=== PATIENT | male | born 1960 | race Caucasian/White ===

== ENCOUNTER 2017-06-13 07:49 | Inpatient (IN) | payer BC ==
[2017-06-13] MEDS ORDERED: ASPIRIN 81 MG PO STA (07:58)
[2017-06-13] MEDS ORDERED: NITROGLYCERIN SL TABS 0.4 MG TAB SUBLINGUAL STA (07:58)
[2017-06-13] MEDS ORDERED: ONDANSETRON 4 MG/2 ML VIAL IVP STA (08:02)
[2017-06-13] MEDS ORDERED: ATORVASTATIN 80 MG TAB PO STA (08:02)
[2017-06-13] MEDS ORDERED: HYDROmorphone 0.5 MG/0.5 ML SYRINGE IVP STA (08:03)
[2017-06-13] MEDS ORDERED: NITROGLYCERIN-D5W PMX 50 MG in DEXTROSE/WATER 1 250ML.BAG IV ONE (08:03)
[2017-06-13 08:10] LABS: Basophils # (A) 0.1 k/uL (0-0.2); Basophils % (A) 1 %; Eosinophils # (A) 0.2 k/uL (0-0.7); Eosinophils % (A) 2 %; HCT 48.5 % (39.0-53.0); HGB 16.2 gm/dL (13.0-17.5); Lymphocytes % (A) 45 %; MCH 32.3 pg (25.0-35.0); MCHC 33.3 g/dL (31.0-37.0); MCV 96.9 fL (80.0-100.0); Mean Platelet Volume 7.1; Monocytes % (A) 9 %; Neutrophils # (A) 4.3 k/uL (1.3-7.7); Neutrophils % (A) 40 %; Platelet Count 267 k/uL (150-450); RBC 5.01 m/uL (4.30-5.90); WBC 10.7 k/uL (3.8-10.6)
--- NOTE | 2017-06-13 08:11 | ED ---
Chest Pain HPI - General Chief Complaint: Chest Pain Stated Complaint: chest pain Time Seen by Provider: 06/13/17 07:55 Source: patient, RN notes reviewed Mode of arrival: wheelchair Limitations: no limitations - History of Present Illness Initial Comments: This is a 56-year-old male with history of smoking which she quit 3 years ago and alcohol consumption which he states he has not had a drink in about a week also history of hypertension on no medications who states he had the onset about 740 morning just prior to arrival of severe retrosternal chest pressure. Is burning in nature it feels like heartburn 10/10 severity he states his mid chest nonradiating. He denies any nausea vomiting sweats or other symptoms with it no shortness of breath he is however very anxious. He does state he is been worked up for chest pain before including stress tests which currently been negative. MD Complaint: chest pain - Related Data Allergies Allergy/AdvReac Type Severity Reaction Status Date / Time No Known Allergies Allergy Verified 06/13/17 07:51 Review of Systems ROS Statement: Those systems with pertinent positive or pertinent negative responses have been documented in the HPI. ROS Other: All systems not noted in ROS Statement are negative. EKG Findings - EKG Results: EKG: interpreted by ERMD, sinus rhythm (Sinus rhythm rate of 68 NJ interval 192 QRS 80 QT since QTC of 398/[address] elevation in leads 23 aVF with reciprocal depressions in leads aVL. This is changed from an EKG dated 03/21/16 which showed possible evidence of repolarization but was otherwise unremarkable. ) Past Medical History Past Medical History: GERD/Reflux Additional Past Medical History / Comment(s): Recent infuenza History of Any Multi-Drug Resistant Organisms: None Reported Past Surgical History: No Surgical Hx Reported Past Psychological History: No Psychological Hx Reported Smoking Status: Former smoker Past Alcohol Use History: None Reported Past Drug Use History: None Reported - Past Family History Father Family Medical History: Coronary Artery Disease (CAD) Additional Family Medical History / Comment(s): Father had his first AK in his 40's. He had CABG twice. He of a AK at the age of 67yrs. Mother Family Medical History: Coronary Artery Disease (CAD) Additional Family Medical History / Comment(s): Mother had CABG. She of a AK at the age of 67yrs. General Exam - General Exam Comments Initial Comments: This is a well up well-nourished awake alert anxious appearing male Limitations: no limitations General appearance: alert, anxious, in distress Head exam: Present: atraumatic, normocephalic, normal inspection Eye exam: Present: normal appearance, PERRL, EOMI. Absent: scleral icterus, conjunctival injection, periorbital swelling ENT exam: Present: normal exam, mucous membranes moist Neck exam: Present: normal inspection. Absent: tenderness, meningismus, lymphadenopathy Respiratory exam: Present: normal lung sounds bilaterally. Absent: respiratory distress, wheezes, rales, rhonchi, stridor Cardiovascular Exam: Present: normal rhythm, bradycardia, normal heart sounds. Absent: systolic murmur, diastolic murmur, rubs, gallop, clicks GI/Abdominal exam: Present: soft, normal bowel sounds. Absent: distended, tenderness, guarding, rebound, rigid Extremities exam: Present: normal inspection, full ROM, normal capillary refill. Absent: tenderness, pedal edema, joint swelling, calf tenderness Back exam: Present: normal inspection Neurological exam: Present: alert, oriented X3, CN II-XII intact Psychiatric exam: Present: normal affect, normal mood Skin exam: Present: warm, dry, intact, normal color. Absent: rash Course Vital Signs 06/13/17 06/13/17 06/13/17 07:50 07:58 08:04 Temperature 98.1 F Pulse Rate 55 L 58 L 66 Respiratory 20 18 20 Rate Blood Pressure 142/80 142/84 152/93 O2 Sat by Pulse 100 100 100 Oximetry 06/13/17 06/13/17 06/13/17 08:08 08:13 08:17 Temperature Pulse Rate 58 L 63 57 L Respiratory 18 18 18 Rate Blood Pressure 147/84 135/88 147/82 O2 Sat by Pulse 100 100 99 Oximetry 06/13/17 08:23 Temperature Pulse Rate 64 Respiratory 18 Rate Blood Pressure 153/86 O2 Sat by Pulse 100 Oximetry - Reevaluation(s) Reevaluation #1: 06/13/17 08:09 A STEMI alert was called immediately I did discuss the case with both Dr. Cade at 8:[address] ASPEN Larson at 804 the Test Desk Trouble Locator has been called in. Patient states his pain was down to a 9.5/10 after the initial treatment. 06/13/17 08:13 Reevaluation #2: 06/13/17 08:10 I did discuss the findings with Dr. Gagnon at 8:10 AM patient will be admitted to his service after the Test Desk Trouble Locator. Reevaluation #3: 06/13/17 08:14 Patient does seem more comfortable he states down to a 9.0/10 at this time. He did have some nausea he was given some IV Zofran. Reevaluation #4: 06/13/17 08:20 Patient appears be resting comfortably his pain is down to 8/10 I did discuss the findings with the patient's daughter who is at bedside I did explain the current situation and the catheterization process briefly. Reevaluation #5: 06/13/17 08:28 Patient is experiencing increased pain in the IV nitroglycerin will be increased to 10 g. A bolus of 5000 units of heparin will be ordered. Dr. Cade and Dr. Larson are both in the emergency department Chest Pain MDM - MDM The patient's x-ray was reviewed no acute findings. Patient was taken to the Test Desk Trouble Locator. He is feeling somewhat improved. I did again discuss the findings with him and his daughter was present. Critical Care Time Critical Care Time: Yes Critical Care Time: 32 minutes of critical care time which includes the initial history physical labs x-rays and evaluation. Multiple reevaluation of the patient for response to therapy. Discussion with multiple physicians. Review of old charting was available. Documentation of the above. Disposition Clinical Impression: ST elevation myocardial infarction (STEMI), Chest pain Disposition: ADMITTED IP TO THIS HOSP Condition: Critical Referrals: None,Stated [Primary Care Provider] - 1-2 days
--- NOTE | 2017-06-13 08:19 | XR ---
EXAMINATION TYPE: XR chest 1V portable DATE OF EXAM: 06/13/2017 HISTORY: Chest Pain. REFERENCE: Previous study dated 03/20/2016. FINDINGS: The lungs are clear. Pleural space are clear. Heart size is upper limits of normal. IMPRESSION: NO ACUTE INTRATHORACIC ABNORMALITY.
[2017-06-13 08:20] LABS: ALT 57 U/L (21-72); AST 30 U/L (17-59); Albumin 4.1 g/dL (3.5-5.0); Alkaline Phosphatase 63 U/L (38-126); Amylase 33 U/L (30-110); Anion Gap 12 mmol/L; Blood Urea Nitrogen 15 mg/dL (9-20); Calcium 9.6 mg/dL (8.4-10.2); Carbon Dioxide 23 mmol/L (22-30); Chloride 107 mmol/L (98-107); Glucose 125 mg/dL (74-99); Lipase 235 U/L (23-300); Magnesium 1.9 mg/dL (1.6-2.3); Potassium 3.2 mmol/L (3.5-5.1); Sodium 142 mmol/L (137-145)
[2017-06-13 08:22] LABS: Lymphocytes # (A) 4.8 k/uL (1.0-4.8)
[2017-06-13] MEDS ORDERED: HEPARIN SODIUM,PORCINE 5,000 UNIT/ML 1 ML VIAL IV STA (08:29)
[2017-06-13 08:30] LABS: Prothrombin Time 9.7 sec (9.0-12.0)
--- NOTE | 2017-06-13 08:32 | P.CRDCN ---
History of Present Illness Consult date: 06/13/17 History of present illness: This is a 56-year-old gentleman with history of hypertension and previous history of smoking who started having severe chest pain about 7:45 AM this morning. This is a precordial in nature and very severe, associated with mild nausea. His EKG showed ST elevation in inferior leads and depression in the anterior leads. Findings are consistent with inferoposterior myocardial infarction. Patient apparently had a stress test about a year ago that was negative for ischemia. He used to smoke in the past but quit several years ago. He is a social drinker. Patient is being taken to Cardiac catheterization laboratory for cardiac cath and possible intervention. Prognosis guarded Review of Systems Not obtained Past Medical History Past Medical History: GERD/Reflux Additional Past Medical History / Comment(s): Recent infuenza History of Any Multi-Drug Resistant Organisms: None Reported Past Surgical History: No Surgical Hx Reported Past Psychological History: No Psychological Hx Reported Smoking Status: Former smoker Past Alcohol Use History: None Reported Past Drug Use History: None Reported - Past Family History Father Family Medical History: Coronary Artery Disease (CAD) Additional Family Medical History / Comment(s): Father had his first MN in his 40's. He had CABG twice. He of a MN at the age of 67yrs. Mother Family Medical History: Coronary Artery Disease (CAD) Additional Family Medical History / Comment(s): Mother had CABG. She of a MN at the age of 67yrs. Medications and Allergies Allergies Allergy/AdvReac Type Severity Reaction Status Date / Time No Known Allergies Allergy Verified 06/13/17 07:51 Physical Exam Vitals: Vital Signs Temp Pulse Resp BP Pulse Ox 06/13/17 08:23 64 18 153/86 100 06/13/17 08:17 57 L 18 147/82 99 06/13/17 08:13 63 18 135/88 100 06/13/17 08:08 58 L 18 147/84 100 06/13/17 08:04 66 20 152/93 100 06/13/17 07:58 58 L 18 142/84 100 06/13/17 07:50 98.1 F 55 L 20 142/80 100 Intake and Output 06/12/17 06/13/17 06/13/17 22:59 06:59 14:59 Other: Weight 88.451 kg Patient Weight 06/14/17 06:59 Weight 88.451 kg GENERAL EXAM: Patient is alert and oriented and doesn't appear to be in any acute distress HEENT: Normocephalic. Normal reaction of pupils, equal size, normal range of extraocular motion. No erythema or exudates in the throat. NECK: No masses, no nuchal rigidity. CHEST: No chest wall deformity. LUNGS: Equal air entry with no crackles or wheeze. HEART: S1 and S2 normal with no audible mumurs or gallops. Regular rhythm, femorals equal on both sides.. ABDOMEN: No hepatosplenomegaly, normal bowel sounds, no guarding or rigidity. SKIN: No rashes CENTRAL NERVOUS SYSTEM: No focal deficits. EXTREMITIES: No cyanosis, clubbing or edema. Results 06/13/17 07:45 06/13/17 07:45 Cardiac Enzymes 06/13/17 Range/Units 07:45 AST 30 (17-59) U/L CBC 06/13/17 Range/Units 07:45 WBC 10.7 H (3.8-10.6) k/uL RBC 5.01 (4.30-5.90) m/uL Hgb 16.2 (13.0-17.5) gm/dL Hct 48.5 (39.0-53.0) % Plt Count 267 (150-450) k/uL Comprehensive Metabolic Panel 06/13/17 Range/Units 07:45 Sodium 142 (137-145) mmol/L Potassium 3.2 L (3.5-5.1) mmol/L Chloride 107 (98-107) mmol/L Carbon Dioxide 23 (22-30) mmol/L BUN 15 (9-20) mg/dL Creatinine 0.83 (0.66-1.25) mg/dL Glucose 125 H (74-99) mg/dL Calcium 9.6 (8.4-10.2) mg/dL AST 30 (17-59) U/L ALT 57 (21-72) U/L Alkaline Phosphatase 63 (38-126) U/L Total Protein 7.0 (6.3-8.2) g/dL Albumin 4.1 (3.5-5.0) g/dL Current Medications Generic Name Dose Route Start Last Admin Trade Name Freq PRN Reason Stop Dose Admin Nitroglycerin/Dextrose 50 mg/ 250 mls @ 1.5 mls/hr 06/13/17 08:03 06/13/17 08 :05 IV Solution IV 06/14/17 08:02 5 mcg/min .Q24H ONE 1.5 mls/hr Protocol Administration 5 MCG/MIN Intake and Output 06/12/17 06/13/17 06/13/17 22:59 06:59 14:59 Other: Weight 88.451 kg Patient Weight 06/14/17 06:59 Weight 88.451 kg 06/13/17 07:45 06/13/17 07:45 Assessment and Plan (1) Acute inferoposterior myocardial infarction Current Visit: Yes Status: Acute Code(s): I21.19 - STEMI INVOLVING OTH CORONARY ARTERY OF INFERIOR WALL SNOMED Code(s): 94428434 Plan: Patient is being taken to medical lab tech instructor for catheterization and intervention by Dr. ASPEN Larson. Prognosis is guarded
[2017-06-13 08:34] LABS: Partial Thromboplastin Time 19.9 sec (22.0-30.0)
[2017-06-13] MEDS ORDERED: LIDOCAINE 2% INJ 20 MG/ML (20 ML MDV) ONE (08:44)
[2017-06-13] MEDS ORDERED: HYDROmorphone 2 MG/ML 1 ML SYRINGE ONE (08:45)
[2017-06-13] MEDS ORDERED: MIDAZOLAM 2 MG/2 ML VIAL ONE (08:45)
[2017-06-13 08:46] LABS: Creatine Kinase MB 0.3 ng/mL (0.0-2.4)
[2017-06-13] MEDS ORDERED: LIDOCAINE 2% INJ 20 MG/ML SQ ONE (08:46)
[2017-06-13 08:47] LABS: Troponin I 0.041 ng/mL (0.000-0.034)
[2017-06-13] MEDS ORDERED: POTASSIUM CHLORIDE 10 MEQ in SODIUM CHLORIDE 0.9% 100 ML IV STA (08:47)
[2017-06-13] MEDS ORDERED: POTASSIUM CHLORIDE ER 20 MEQ TAB.ER PO STA ×2 (08:47→10:09)
[2017-06-13] MEDS: HYDROmorphone 2 MG/ML 1 ML SYRINGE IV ONE ×3 (08:51→09:17)
[2017-06-13] MEDS ORDERED: MIDAZOLAM 2 MG/2 ML VIAL IV ONE (08:51)
[2017-06-13] MEDS ORDERED: SODIUM CHLORIDE 0.9% 1,000 ML IV ONE (08:55)
[2017-06-13] MEDS ORDERED: BIVALIRUDIN BOLUS 250 MG/50 ML IV ONE (09:00)
[2017-06-13] MEDS ORDERED: BIVALIRUDIN 250 MG in SODIUM CHLORIDE 0.9% 50 ML IV ONE (09:01)
[2017-06-13] MEDS ORDERED: POTASSIUM CHLORIDE 20 MEQ/100 ML BAG IVPB ONE ×2 (09:18→10:13)
[2017-06-13] MEDS ORDERED: NITROGLYCERIN 1000MCG/10ML SYRINGE INTRACORON ONE (09:43)
[2017-06-13] MEDS ORDERED: TICAGRELOR 90 MG TAB ONE (10:02)
[2017-06-13] MEDS ORDERED: IOHEXOL 350 MG/ML 125ML BOTTLE INJ ONE (10:03)
[2017-06-13] MEDS ORDERED: TICAGRELOR 90 MG TAB PO ONE (10:07)
[2017-06-13] MEDS ORDERED: amLODIPine 5 MG TAB ONE (10:08)
[2017-06-13] MEDS ORDERED: amLODIPine 5 MG TAB PO ONE (10:13)
[2017-06-13] MEDS ORDERED: MAG HYDROX/AL HYDROX/SIMETH 30 ML CUP PO PRN (10:15)
[2017-06-13] MEDS ORDERED: ATROPINE SULFATE 0.1 MG/ML 10ML SYRINGE IV PRN (10:15)
[2017-06-13] MEDS ORDERED: ZOLPIDEM 5 MG TAB PO PRN (10:15)
[2017-06-13] MEDS ORDERED: NITROGLYCERIN SL TABS 0.4 MG TAB SUBLINGUAL PRN (10:15)
[2017-06-13] MEDS ORDERED: RX INFO: IV CONTRAST WAS GIVEN 1 EACH MISC MISCELLANE PRN (10:15)
[2017-06-13 10:50] LABS: Glucose,Whole Blood 123 mg/dL (75-99)
[2017-06-13] MEDS ORDERED: MAGNESIUM SULFATE-D5W PMX 1 GM in DEXTROSE/WATER 1 100ML.BAG IVPB ONE (11:00)
[2017-06-13] MEDS: SODIUM CHLORIDE 0.9% 1,000 ML IV SCH (11:10)
[2017-06-13 11:31] VITALS: BMI 27.9
[2017-06-13] MEDS: METOPROLOL TARTRATE 25 MG TAB PO SCH ×2 (14:59→20:19)
[2017-06-13] MEDS ORDERED: LISINOPRIL 10 MG TAB PO STA (15:15)
[2017-06-13] MEDS: HYDROmorphone 0.5 MG/0.5 ML SYRINGE IVP PRN ×2 (15:27→20:34)
--- NOTE | 2017-06-13 15:55 | CC ---
CARDIAC CATHETERIZATION REPORT DATE OF SERVICE: 06/13/2016 PROCEDURES: 1. Left heart catheterization and coronary angiography. 2. PTCA and stenting of distal RCA, PLV branch of RCA with drug-eluting stents in the setting of acute inferior ST-elevation OK with reperfusion accomplished in 79 minutes. PERFORMED BY: Dr. Sheryl Larson. Moderate conscious sedation time was 1 hours 18 minutes. Patient was sedated with a combination of Versed and Benadryl. His oxygen saturation and vital signs were monitored very closely. CLINICAL INFORMATION: Mr. Zaire Mckeon is a 56-year-old gentleman without significant past medical history. He takes some omeprazole type medications. He apparently had a stress echo that was negative in March 2016. He came into the hospital with chest pain that started at about 7:40 am, severe discomfort with inferior ST elevation. Patient presented to the emergency room, was seen by Dr. Cade, advised cardiac cath and PCI that was performed expeditiously. PROCEDURE NOTE: Under local anesthesia and strict aseptic precautions, a 6-[place]ib[place] introducer placed in the right femoral artery. Using a standard left Jj catheter, I performed selective coronary angiography of the left system. I then used a right guide catheter but then switched over for intervention procedure to a [facility] guide catheter. Using this [facility] guide catheter, I performed the intervention. Coronary angiography was performed. LV pressures were also checked, but LV-gram was not performed. Following the procedure, an Angio-Seal device was used to secure hemostasis, but patient continued to have some oozing and therefore a FemoStop at 40 mmHg was applied and he was sent to the ICU in a stable condition with total resolution of chest pain and near-complete resolution of ST elevation in the inferior leads with remarkably good NYA-3 flow in the right coronary artery. CARDIAC CATHETERIZATION FINDINGS: LEFT MAIN CORONARY ARTERY: This is a short patent vessel that has mild diffuse disease and bifurcates into LAD and circumflex. LEFT ANTERIOR DESCENDING CORONARY ARTERY: This vessel has diffuse disease in the mid segment, has mild irregularities throughout. Gives off a septal and diagonal branch. The diagonal branch also seems to have about a 60% to 70% narrowing. Mid LAD has another 70% narrowing in the entire segment with calcification. Distally also there are multiple areas of 30% to 50% narrowing and the vessel curves over the apex to supply the inferoapical portion of left ventricle. There are 2 good-sized diagonal branches and the first diagonal branch has about a 50% stenosis in the proximal portion, but second diagonal branch is free of significant disease. There are 2 septals which are free of significant disease. LEFT POSTERIOR CIRCUMFLEX CORONARY ARTERY: Technically this is a nondominant vessel, gives off a single obtuse marginal that runs laterally, has about a 40% proximal lesion. Then the vessel continues in the AV groove, has diffuse disease and subtotal occlusions are noted and very limited flow is noted in this vessel that comes out to supply the PLV branch. The groove branch has also diffuse disease. The circumflex after the obtuse marginal, therefore, has diffuse disease with subtotal lesion, but the amount of myocardium supplied by it is small. This is a nondominant vessel. First obtuse marginal has a 40% proximal lesion. RIGHT CORONARY ARTERY: Technically a very dominant vessel. At the junction of the proximal and middle one-third there is eccentric 70% stenosis and with calcification and there is extreme tortuosity. After the tortuosity distally, the vessel is totally occluded with very limited sluggish flow and late opacification of the branches. The distal RCA, which is a dominant vessel, is therefore totally occluded after an acute marginal branch before bifurcation and in the proximal one-third, there is an eccentric 70% stenosis. This is a very dominant vessel. Left ventricular end-diastolic pressure was 24 mmHg without any gradient across the aortic valve. FINAL IMPRESSION: This patient has a total occlusion of distal RCA, which is the culprit lesion for his acute inferior myocardial infarction. The left system also has diffuse disease, particularly the LAD has diffuse disease noted in the middle one-third after the 2 diagonal branches. PCI PROCEDURE DETAILS: I used initially a right Jj type guide catheter, but switched over to a KRH catheter. The patient received 180 mg of Brilinta. He also received Angiomax bolus and infusion as per protocol. I used a KRH guide catheter to cannulate the right coronary artery. I used a BMW wire, with this wire, I was able to cross the total occlusion and wire was kept in a small secondary branch coming off from the PLV. I dilated the distal RCA with a 2.0 balloon initially, then I used a 2.5 balloon. There was significant improvement noted. I tried to advance the wire into the PLV branch, but I was not successful. After some deliberation, I decided to deploy a stent at the distal area and I used a 3.0 caliber 8 mm long Xience stent and deployed this just before the bifurcation. There was a significant improvement in angiographic appearance and flow once I deployed that stent. I then used the same wire and I tried to manipulate this wire and slowly advance this into the PLV branch. I also tried to use another whisper wire, but I had difficulty coming across from the proximal lesion. A BMW wire was placed in the PLV branch which was the largest of the branches of this very dominant RCA. I then deployed a 2.75, 8 mm Xience stent distal to the previous stent with excellent angiographic result. I noted that the PLV also had a significant improvement in the flow noted, but there appeared to be a lesion right at the origin of the PDA branch which appears to have been jailed. However, the flow was excellent and I did not want to jeopardize the flow in the PDA, which was a diffusely diseased vessel. The PLV was a good caliber more significant vessel which supplied a larger amount of myocardium. After this, I then turned my attention to the proximal area where there was a very eccentric lesion and used a 3.5 caliber 12 mm Xience stent to deploy this at the junction of proximal and middle one-third. Excellent angiographic result was eventually achieved and it appears that the flow in the PDA was also restored very well, but the PDA had a distal lesion of about 70% which was not intervened. At the end of the procedure, there was excellent angiographic result achieved with a NYA-3 flow, total resolution of pain and also significant improvement in the EKG with almost near normalization. Results were then discussed with the patient's and children. The patient was sent to the ICU in a stable condition with excellent angiographic result. His LAD will be addressed at a later time. MMODL / IJN: [id number] /
[2017-06-13 17:00] LABS: Anion Gap 8 mmol/L; Blood Urea Nitrogen 11 mg/dL (9-20); Calcium 8.6 mg/dL (8.4-10.2); Carbon Dioxide 24 mmol/L (22-30); Chloride 106 mmol/L (98-107); Glucose 100 mg/dL (74-99); Magnesium 2.1 mg/dL (1.6-2.3); Potassium 4.2 mmol/L (3.5-5.1); Sodium 138 mmol/L (137-145)
--- NOTE | 2017-06-13 18:55 | HP ---
HISTORY AND PHYSICAL DATE OF SERVICE: 06/13/2017. CHIEF COMPLAINT: Chest pain BRIEF HISTORY: Patient is a 56-year-old male patient with history of hypertension, history of smoking, presented to the ED in the morning with complaint of severe chest pain which is precordial in nature and was very intense, associated with some nausea and diaphoresis. The patient had EKG done in the ED, which showed some ST elevation in inferior leads and depression and ST-elevation inferior and depression anteriorly. The patient findings were consistent with posterior PA. Patient did have a stress test about a year ago, which was negative for ischemia. The patient has longstanding history of smoking and continues to smoke. The patient was taken to the general labor for an immediate cardiac catheterization and possible intervention. PAST MEDICAL HISTORY: Significant for history of hypertension, gastroesophageal reflux disease, recent influenza infection. PAST SURGICAL HISTORY: Negative. SOCIAL HISTORY: Patient is a former smoker, quit some time ago. No history of alcohol abuse. No IV drug abuse. FAMILY HISTORY: Significant for coronary artery disease in father who had a 1st PA at the age of 40 with a CABG x2 and at age of 67. Mother has also history of coronary artery disease. MEDICATIONS: The patient is not taking any medications on regular basis. ALLERGIC: He has no known drug allergies. REVIEW OF SYSTEMS: CONSTITUTIONAL: No fever, chills. HEENT: No hearing or vision loss. RESPIRATORY: No shortness of breath or wheezing or cough. CARDIOVASCULAR: As described above. ABDOMEN: Some nausea. No vomiting or diarrhea. GENITOURINARY: No hematuria or dysuria. EXTREMITIES: No deformities. No joint swellings. NEUROLOGICAL: No dizziness or lightheadedness. No headaches. Rest of 14-point review of system is unremarkable. PHYSICAL EXAMINATION: The patient is awake, alert, oriented x3. He is anxious. VITAL SIGNS: Temperature 98.1, pulse 55, respiratory 20, blood pressure 140/80, O2 saturation 100%. HEENT: Atraumatic, normocephalic. Pupils equal and reactive to light. Extraocular movements intact. Buccal mucosa is fair. NECK: Supple. No goiter or lymphadenopathy. JVD is negative. No carotid bruit heard. Lungs are clear to auscultate. No rales, rhonchi, or wheezes. Heart is regular rate and rhythm without any murmurs gallop rhythm. Abdomen is soft, nontender, nondistended. Bowel sounds positive. EXTREMITIES: No edema, clubbing or cyanosis. Pulses are palpable 2+. NEUROLOGICAL EXAMINATION: Patient is awake, alert, oriented x3. Cranial nerves 2-12 grossly intact. No gross motor or sensory deficit. Skin is warm, dry and intact. PSYCHIATRIC EXAM: The patient has normal affect and mood. LAB AND X-RAY DATA: Done on admission: EKG showed some changes as described above. Lab data: CBC; white blood count of 10.7, hemoglobin 16.2, hematocrit 48.5, and platelet count of 267. INR of 1.0. Chemical profile; Sodium 142, potassium 3.2, chloride 107, bicarb 23, BUN 15, creatinine 0.8, glucose 125. ASSESSMENT: 1. Myocardial infarction, inferoposterior myocardial infarction. 2. Hypokalemia. 3. Uncontrolled hypertension. 4. History of hypertension, noncompliance to medication. PLAN: The plan is to admit the patient to ICU. The patient is started on IV heparin. Plan is to take patient to the lab for cardiac catheterization and further intervention if needed. Monitor cardiac enzymes. Monitor EKG. Start patient on LC inhibitors and beta blockers. Cardiology is on board. Further recommendations after patient undergoes heart catheterization. MMODL / IJN: [id number] /
[2017-06-13] MEDS ORDERED: ATORVASTATIN 80 MG TAB PO SCH (21:00)
[2017-06-14] MEDS: HYDROmorphone 0.5 MG/0.5 ML SYRINGE IVP PRN (01:28)
[2017-06-14 04:37] LABS: Basophils % (A) 0 %; Eosinophils # (A) 0.1 k/uL (0-0.7); Eosinophils % (A) 1 %; HCT 43.4 % (39.0-53.0); HGB 13.9 gm/dL (13.0-17.5); Lymphocytes # (A) 1.5 k/uL (1.0-4.8); Lymphocytes % (A) 19 %; MCH 31.7 pg (25.0-35.0); MCHC 31.9 g/dL (31.0-37.0); MCV 99.5 fL (80.0-100.0); Mean Platelet Volume 7.3; Monocytes # (A) 0.7 k/uL (0-1.0); Monocytes % (A) 9 %; Neutrophils # (A) 5.5 k/uL (1.3-7.7); Neutrophils % (A) 69 %; Platelet Count 195 k/uL (150-450); RBC 4.37 m/uL (4.30-5.90)
[2017-06-14 07:41] LABS: Anion Gap 8 mmol/L; Blood Urea Nitrogen 10 mg/dL (9-20); Calcium 8.8 mg/dL (8.4-10.2); Carbon Dioxide 25 mmol/L (22-30); Chloride 105 mmol/L (98-107); Glucose 106 mg/dL (74-99); Potassium 4.2 mmol/L (3.5-5.1); Sodium 138 mmol/L (137-145)
[2017-06-14] MEDS: SODIUM CHLORIDE 0.9% 1,000 ML IV SCH (07:46)
[2017-06-14] MEDS: CLOPIDOGREL 75 MG TAB PO SCH (08:12)
[2017-06-14] MEDS: ASPIRIN 81 MG PO SCH (08:12)
[2017-06-14] MEDS ORDERED: LISINOPRIL 10 MG TAB PO SCH (09:00)
[2017-06-14] MEDS ORDERED: HYDROmorphone 2 MG TAB PO PRN (11:22)
[2017-06-14] MEDS: METOPROLOL TARTRATE 12.5 MG TAB PO SCH ×2 (11:48→21:04)
--- NOTE | 2017-06-14 14:57 | PN ---
PROGRESS NOTE Mr. Mckeon suffered from acute inferior wall CT yesterday. Underwent stenting of a complex distal RCA and PLV branch. She is doing well today. Echo revealed ejection fraction of nearly 45-50% with inferobasal hypokinesia. I am recommending we cut down the lisinopril to 5 mg at bedtime, metoprolol 12.5 mg daily, increase activity, move him to telemetry. His right groin is clean and dry with a small area of ecchymosis. Vital signs stable. S1, S2 heard normally. Lungs are clear. Abdomen is soft, nontender. Lower extremities reveal normal pulses. No edema. Central nervous system is normal. MMODL / IJN: [id number] /
--- NOTE | 2017-06-14 19:45 | PN ---
PROGRESS NOTE DATE OF SERVICE: 06/14/2017 Patient is sitting up at the bedside. Claims that he did have an episode in the morning when he got a little short of breath when he was ambulating in the hallway. No further episodes after that. PHYSICAL EXAMINATION: VITAL SIGNS: Temperature of 97.9, pulse 80, respiration 20, blood pressure of 126/71, O2 saturation 98% on room air. HEENT: Atraumatic, normocephalic. Pupils equal and react to light. Extraocular movements intact. Buccal mucosa is fair. NECK: Supple. No goiter, lymphadenopathy. JVD is negative. No carotid bruit heard. Lungs are clear to auscultate. No rales or wheezes. Heart is regular rate and rhythm without any murmurs or gallop rhythm. ABDOMEN: Soft, nontender. Bowel sounds positive. EXTREMITIES: No edema, clubbing or cyanosis. NEUROLOGICAL EXAMINATION: Cranial nerves 2-12 grossly intact. No gross motor or sensory deficit. LAB: CBC: White blood count of 8, hemoglobin 13.9, hematocrit 43.4, and platelet count of 195. Chemical profile: Sodium 138, potassium 4.2, chloride 105, bicarb 25, BUN 10, creatinine 0.7. ASSESSMENT: 1. Acute inferior wall myocardial infarction status post cardiac catheterization with stenting of complex distal RCA and PLV branches. The patient's lisinopril is decreased to 12.5 mg and metoprolol to 12.5 mg daily. Plan is to increase activity. The patient has been cleared by Cardiology for possible transfer to Selective unit. 2. Hypokalemia. 3. Uncontrolled hypertension. 4. Noncompliance with blood pressure medications. Will continue all current medications at this point. The patient remains stable. Discharge planning per Cardiology discretion and transfer patient to the step-down unit. MMODL / IJN: [id number] /
[2017-06-14] MEDS: LISINOPRIL 5 MG TAB PO SCH (20:13)
[2017-06-14] MEDS: ATORVASTATIN 80 MG TAB PO SCH (21:04)
--- NOTE | 2017-06-15 05:01 | ECHOF ---
Referral Reason:Acute STEMI inferior, S/P PCI RCA MEASUREMENTS -------- HEIGHT: 157.5 cm WEIGHT: 88.5 kg BP: RVIDd: 3.0 cm (< 3.3) IVSd: 1.4 cm (0.6 - 1.1) LVIDd: 5.0 cm (3.9 - 5.3) LVPWd: 0.9 cm (0.6 - 1.1) IVSs: 1.8 cm LVIDs: 4.1 cm LVPWs: 0.9 cm LA Diam: 2.5 cm (2.7 - 3.8) LAESV Index (A-L): 28.65 ml/m Ao Diam: 4.1 cm (2.0 - 3.7) AV Cusp: 1.8 cm (1.5 - 2.6) LA Diam: 2.9 cm (2.7 - 3.8) MV EXCURSION: 24.642 mm (> 18.000) MV EF SLOPE: 96 mm/s (70 - 150) EPSS: 1.0 cm MV E Ruperto: 0.78 m/s MV DecT: 154 ms MV A Ruperto: 0.60 m/s MV E/A Ratio: 1.29 RAP: 5.00 mmHg RVSP: 10.39 mmHg FINDINGS -------- Sinus rhythm. This was a technically adequate study. The left ventricular size is normal. Left ventricular wall thickness is normal. Overall left vent ricular systolic function is mildly impaired with, an EF between 45 - 50 %. Inferior basal Hypokine sis The right ventricle is normal in size. Normal LA size by volume 22+/-6 ml/m2. The right atrial size is normal. The aortic valve is trileaflet, and appears structurally normal. No aortic stenosis or regurgitation. Mild mitral regurgitation is present. Mild tricuspid regurgitation present. There is no evidence of pulmonary hypertension. The right v entricular systolic pressure, as measured by Doppler, is 10.39mmHg. Trace/mild (physiologic) pulmonic regurgitation. The aortic root size is normal. There is no pericardial effusion. CONCLUSIONS -------- 1. The left ventricular size is normal. 2. Left ventricular wall thickness is normal. 3. Inferior basal Hypokinesis 4. The aortic valve is trileaflet, and appears structurally normal. No aortic stenosis or regurgitati on. 5. Mild mitral regurgitation is present. 6. Mild tricuspid regurgitation present. 7. There is no evidence of pulmonary hypertension. 8. The right ventricular systolic pressure, as measured by Doppler, is 10.39mmHg. 9. Trace/mild (physiologic) pulmonic regurgitation. 10. The aortic root size is normal. 11. There is no pericardial effusion. SORT WORKER: Ashlie Santos RDCS
[2017-06-15] MEDS: CLOPIDOGREL 75 MG TAB PO SCH (08:10)
[2017-06-15] MEDS: METOPROLOL TARTRATE 12.5 MG TAB PO SCH ×2 (08:10→20:00)
[2017-06-15] MEDS: ASPIRIN 81 MG PO SCH (08:10)
[2017-06-15] MEDS: LISINOPRIL 5 MG TAB PO SCH (19:59)
[2017-06-15] MEDS: ATORVASTATIN 80 MG TAB PO SCH (19:59)
--- NOTE | 2017-06-15 20:34 | PN ---
PROGRESS NOTE This gentleman underwent stenting of the distal RCA with an excellent result. He also has moderate to severe LAD lesion which will be addressed at a later date. He is asymptomatic, doing well. Vitals are stable. S1, S2 heard normally. Lungs are clear. Abdomen and lower extremity exam unchanged. Plan is to move him to telemetry. Continue current medications. Increase activity. Plan for discharge tomorrow. MMODL / IJN: [id number] /
[2017-06-16 03:34] VITALS: RESP 18; TEMP 97.6
[2017-06-16] MEDS: METOPROLOL TARTRATE 12.5 MG TAB PO SCH (07:38)
[2017-06-16] MEDS: ASPIRIN 81 MG PO SCH (07:38)
[2017-06-16] MEDS: CLOPIDOGREL 75 MG TAB PO SCH (07:38)
--- NOTE | 2017-06-16 12:10 | PN ---
PROGRESS NOTE Mr. Mckeon suffered from inferior MT. I performed stenting of RCA and PLV branch in the acute setting with a good result. He has LAD disease as well. He is doing well without symptoms. Ejection fraction in the 45% to 50% range with inferobasal hypokinesia. Vital signs are stable. There is no JVD or carotid bruit. S1, S2 heard normally. Lungs are clear. Abdomen and lower extremity exam is unchanged. Plan is to continue current medications, increase activity, discharge him today and he will see Dr. Cade in the office and will have a staged intervention in 1 to 2 weeks of his LAD. I explained to the patient regarding discharge instructions, importance of dual antiplatelet therapy, and he will be discharged later on today. MMODL / IJN: [id number] /
[2017-06-16 13:02] VITALS: BP 121/72; PULSE 72
--- NOTE | 2017-06-16 17:54 | P.PN ---
Subjective Progress Note Date: 06/15/17 Progress note being dictated for Interval history: Is a 56-year-old gentleman admitted with acute inferior wall LA, status post cardiac cath with stenting of complex distal RCA and PLV branches. Continues to do well, awaiting bed on telemetry unit. Telemetry sinus rhythm. Ambulating, tolerated exertion better today. Denies chest pain palpitations or increasing shortness of breath. Maintaining O2 sats of 97% on room air. Objective - Vital Signs Vital signs: Vital Signs Temp 97.3 F L 06/15/17 17:20 Pulse 84 06/15/17 17:20 Resp 18 06/15/17 17:20 BP 146/89 06/15/17 17:20 Pulse Ox 97 06/15/17 17:20 Intake & Output 06/15/17 06/15/17 06/16/17 06:59 18:59 06:59 Intake Total 1290 600 Output Total 1200 600 Balance 90 0 Weight 88 kg Intake: IV 0 Sodium Chloride 0.9% 1, 0 000 ml @ 75 mls/hr IV . [id number] [facility] Rx#:[id number] Oral 1290 600 Output: Urine 1200 600 Other: Voiding Method Urinal # Voids 0 0 - Exam PHYSICAL EXAM: VITAL SIGNS: As above GENERAL: Sitting up in bed, no acute distress HEENT: Conjunctivae normal. eyes normal. Oral mucosa moist NECK: No JVD. No thyroid enlargement. No LNs CARDIOVASCULAR: S1, S2 muffled. No murmur RESPIRATION: Breath sounds diminished in the bases. No rhonchi or crackles. No bronchial breathing. ABDOMEN: Soft, nontender . No guarding. no masses palpable.Bowel sounds heard. LEGS: No edema. no swelling PSYCHIATRY: Alert and oriented -3, mood and affect normal. NERVOUS SYSTEM: Cranial N 2-12 grossly normal. Moves all 4 limbs. No focal deficits. Skin: no ulcer no rash Joints: No active swelling. No inflammation. Lymphatic system. No LN neck axilla or groin. - Labs CBC & Chem 7: 06/14/17 03:42 06/14/17 03:42 Assessment and Plan Assessment: 1. Acute inferior wall LA, status post cardiac catheterization with stenting of complex distal RCA and PLV branches. 2. Hypokalemia, resolved 3. Uncontrolled hypertension, currently controlled 4. Noncompliance of blood pressure medications Plan: Continue on current medication regime , aspirin, statin, LC inhibitor, beta rosi, Plavix, monitoring and symptomatic treatment. Increase ambulation as tolerated. Patient is overflow patient awaiting telemetry bed. Discharge planning in progress for tomorrow pending cardiology clearance. Further recommendations to follow. The impression and plan of care has been dictated as directed. : I performed a history and examination of this patient, discussed the same with the dictator. I agree with the dictator's note ,documented as a scribe. Any additional findings or plans will be noted.
--- NOTE | 2017-06-17 00:47 | DS ---
DISCHARGE SUMMARY FINAL DIAGNOSES: 1. Acute inferior wall myocardial infarction, status post cardiac catheterization and stenting of the complex distal RCA and PLV branches, acute ST-segment elevation myocardial infarction. 2. Hypokalemia, resolved. 3. Uncontrolled hypertension, currently controlled. 4. Noncompliance with the blood pressure medication. DISCHARGE DISPOSITION: The patient will be discharged in stable condition with guarded prognosis. HISTORY OF PRESENT ILLNESS: This 56-year-old gentleman with a past medical history of multiple medical problems was admitted with acute inferior myocardial infarction. The patient underwent cardiac catheterization and stenting of the RCA. The patient improved significantly and the patient will be discharged in stable condition with guarded prognosis. On exam, vitals are stable. CARDIOVASCULAR: S1 and S2. ABDOMEN: Soft. NERVOUS SYSTEM: No focal deficits. DISCHARGE ADVICE: 1. Diet is cardiac. 2. Activity limited until followup. 3. Followup with Dr. Bran in 2-3 days. 4. Followup with Cardiology as recommended. MEDICATIONS: 1. Aspirin 81 mg p.o. daily. 2. Lipitor 80 mg q.h.s. 3. Plavix 75 mg p.o. daily. 4. Zestril 5 mg p.o. q.h.s. 5. Lopressor 12.5 mg p.o. b.i.d. 6. Nitrostat 0.4 sublingual p.r.n. 7. Omeprazole 20 mg p.o. daily. Once again, the patient will be discharged in stable condition with guarded prognosis. MMODL / MAEVEN: [id number] /
== END 2017-06-16 13:05 | disposition home or self-care (01) | DRG 247 ==
LOC: EC 07:49 → 6ICU 08:36 → 6SEL 06-15 17:12
PROVIDERS: ADMIT Internal Medicine; ATTEND Internal Medicine
PROC: 027136Z Dilation of Coronary Artery, Two Arteries with Three Drug-eluting Intraluminal Devices, Percutaneous Approach (ICD-10-PCS; principal; 2017-06-13 08:29)
PROC: 4A023N7 Measurement of Cardiac Sampling and Pressure, Left Heart, Percutaneous Approach (ICD-10-PCS; 2017-06-13 08:29)
PROC: B2111ZZ Fluoroscopy of Multiple Coronary Arteries using Low Osmolar Contrast (ICD-10-PCS; 2017-06-13 08:29)
DX: I21.19 ST elevation (STEMI) myocardial infarction involving other coronary artery of inferior wall (principal); E87.6 Hypokalemia; I10 Essential (primary) hypertension; I25.10 Atherosclerotic heart disease of native coronary artery without angina pectoris; K21.9 Gastro-esophageal reflux disease without esophagitis; Z91.14 Patient's other noncompliance with medication regimen; Z87.891 Personal history of nicotine dependence; Z82.49 Family history of ischemic heart disease and other diseases of the circulatory system
CPT/HCPCS: 36415; 71045; 80048; 80053; 82150; 82550; 82553; 83690; 83735; 84484; 85025; 85610; 85730; 93005; 93306; 93458; 96365; 96374; 96375; 99291

== ENCOUNTER 2017-06-29 06:27 | Observation (INO) | payer BC ==
[~2017-06-29 06:27] MED LIST: ALPRAZolam 0.25 MG TAB PO PRN; ALPRAZolam 0.5 MG TAB PO PRN; ASPIRIN 325 MG TAB PO STA; ATORVASTATIN 80 MG TAB PO STA; NITROGLYCERIN SL TABS 0.4 MG TAB SUBLINGUAL PRN; SODIUM CHLORIDE 0.9% 1,000 ML in EMPTY BAG 1 BAG IV ONE
[2017-06-29] MEDS ORDERED: ASPIRIN 81 MG ONE (06:47)
[2017-06-29] MEDS ORDERED: VERAPAMIL 2.5 MG/ML 2 ML AMP ONE (07:22)
[2017-06-29] MEDS ORDERED: diphenhydrAMINE 50 MG/ML 1 ML VIAL ONE (07:22)
[2017-06-29] MEDS ORDERED: MIDAZOLAM 2 MG/2 ML VIAL ONE (07:22)
[2017-06-29] MEDS: MIDAZOLAM 2 MG/2 ML VIAL IV ONE ×2 (07:25→08:32)
[2017-06-29] MEDS ORDERED: LIDOCAINE 2% INJ 20 MG/ML SQ ONE (07:28)
[2017-06-29] MEDS ORDERED: VERAPAMIL SYRINGE (5 MG/10 ML) INTRAARTER ONE (07:29)
[2017-06-29] MEDS ORDERED: fentaNYL (PF) 50 MCG/ML 2 ML AMP ONE (07:30)
[2017-06-29] MEDS ORDERED: fentaNYL (PF) 50 MCG/ML 2 ML AMP IV ONE (07:30)
[2017-06-29] MEDS ORDERED: HEPARIN SODIUM 1,000 UN/ML (10ML VL) ONE (07:37)
[2017-06-29] MEDS: HEPARIN SODIUM 1,000 UN/ML (10ML VL) IV ONE ×3 (07:39→08:54)
--- NOTE | 2017-06-29 08:06 | HP ---
HISTORY AND PHYSICAL This is a 56-year-old gentleman who was seen by me about 2 weeks ago on 06/13/2017 when he presented with an acute inferior NV. He did not have any significant past medical history. I performed urgent coronary angiography and PCI of the right coronary artery, which was a very difficult calcified vessel. The stents were also placed into the PLV and PDA was jailed. He had a significant proximal/mid LAD lesion more mid than proximal after a large septal and also there was a moderate disease involving the circumflex marginal as well and circumflex was a nondominant vessel. He was advised staged intervention and is being brought in for the procedure today. Risks, benefits, options, rationale were carefully explained to the patient. He understands all details and wishes to proceed with the procedure. PAST MEDICAL HISTORY: 1. Recently came in with a acute inferior ST-elevation NV, underwent PCI of RCA being brought in for a elective staged intervention. 2. Patient has history of smoking which he has quit. He does not have any hypertension, diabetes or myocardial infarction in the past. MEDICATIONS: At home include: 1. Lopressor 12.5 mg b.i.d. 2. Zestril 5 mg daily. 3. Plavix 75 mg daily. 4. Aspirin 81 mg daily. 5. Lipitor 80 mg daily. 6. Omeprazole p.r.n., which he is not taking. 7. Sublingual nitroglycerin. PHYSICAL EXAMINATION: Blood pressure is 140/80, pulse rate is about 64 per minute, regular. HEENT: Unremarkable. Fundus was not examined by me. NECK: Supple. No JVD. I do not hear a carotid bruit, Heart exam reveals S1, S2 heard normally. No rub, murmur or gallop. Lungs are clear. Abdomen is soft, nontender. Right groin is clean and dry. Lower extremities reveal palpable pulses. No edema. Central nervous system is normal. IMPRESSION: 1. Multivessel coronary artery disease with a recent PCI of right coronary artery performed in the setting of acute ST-elevation myocardial infarction. Patient is now brought in for elective PCI of left anterior descending and possibly of the circumflex marginal as well. 2. History of smoking, which he quit about 2 weeks ago. RECOMMENDATIONS: PCI of LAD after checking patency of RCA. Rationale, risks, benefits, and options were explained. Patient understands and wishes to proceed with the procedure. MMODL / IJN: [id number] /
[2017-06-29] MEDS ORDERED: SODIUM CHLORIDE 0.9% 50 ML BAG ONE (08:13)
[2017-06-29] MEDS ORDERED: BIVALIRUDIN 250 MG VIAL IV ONE (08:13)
[2017-06-29] MEDS: NITROGLYCERIN 1000MCG/10ML SYRINGE INTRACORON ONE ×3 (08:26→09:00)
[2017-06-29] MEDS ORDERED: HYDROmorphone 2 MG/ML 1 ML SYRINGE ONE (08:51)
[2017-06-29] MEDS ORDERED: HYDROmorphone 2 MG/ML 1 ML SYRINGE IV ONE (08:53)
[2017-06-29] MEDS ORDERED: IOHEXOL 350 MG/ML 125ML BOTTLE INJ ONE (09:12)
[2017-06-29] MEDS ORDERED: CLOPIDOGREL 75 MG TAB ONE (09:13)
[2017-06-29] MEDS ORDERED: RX INFO: IV CONTRAST WAS GIVEN 1 EACH MISC MISCELLANE PRN (09:15)
[2017-06-29] MEDS ORDERED: ZOLPIDEM 5 MG TAB PO PRN (09:15)
[2017-06-29] MEDS ORDERED: ATROPINE SULFATE 0.1 MG/ML 10ML SYRINGE IV PRN (09:15)
[2017-06-29] MEDS ORDERED: NITROGLYCERIN SL TABS 0.4 MG TAB SUBLINGUAL PRN ×2 (09:15→09:56)
[2017-06-29] MEDS ORDERED: MAG HYDROX/AL HYDROX/SIMETH 30 ML CUP PO PRN (09:15)
[2017-06-29] MEDS ORDERED: CLOPIDOGREL 75 MG TAB PO ONE (09:15)
[2017-06-29] MEDS: SODIUM CHLORIDE 0.9% 1,000 ML IV SCH (09:30)
--- NOTE | 2017-06-29 11:15 | AN ---
ANGIOGRAPHY REPORT DATE OF SERVICE: 06/29/2017. PROCEDURES PERFORMED: 1. Coronary angiography of the right coronary artery to check patency of the RCA. 2. PTCA and stenting of mid LAD with a drug-eluting stent. 3. PTCA and stenting of proximal first obtuse marginal branch of circumflex with a drug-eluting stent. CLINICAL INFORMATION: Mr. Zaire Mckeon is a 56-year-old gentleman with a past history of smoking and who recently had acute inferior ST-elevation AL, underwent stenting of distal RCA and PLV branch. He had significant disease in the mid LAD and also a plaque in the ostium of the LAD as well as circumflex marginal which was a nondominant vessel. He was advised intervention electively and brought in for the procedure. Actually go back to the go back to the procedure note. PERFORMED BY: Dr. Mable Larson. ANESTHESIA: Moderate conscious sedation time was provided for 1 hour 45 minutes with a combination of Versed and Benadryl and fentanyl. PROCEDURE NOTE: Under local anesthesia and strict aseptic precautions, a 6-Turkish introducer was placed in the right radial artery. I used a standard right Jj diagnostic catheter to perform selective coronary angiography of the RCA. RCA was widely patent without significant disease at the site of previous stenting. There were mild diffuse irregularities noted. The PLV also was widely patent and the PDA had good flow in it. I then turned my attention to the left system. I had a lot of difficulty getting a good guide support. I tried multiple catheters and eventually Voda 3.5 catheter was used to cannulate the left coronary artery with a decent guide support. A run-through wire was used to cross the lesion in the LAD. Predilatation was performed using a 15 mm long 2.5 caliber NC Trek balloon at 12 atmospheres. I then deployed an 18 mm long 2.75 Xience stent in the mid LAD with excellent angiographic result. There was evidence of some disease in the distal LAD as well of up to 40% multiple areas of narrowing. This was not addressed. I then turned my attention to the circumflex marginal. The same wire was used to cross the lesion in the circumflex. Without predilatation, a 2.5 caliber 12 mm long Xience stent was deployed in the first obtuse marginal. Patient had chest pain with LAD inflation, but no significant disease with obtuse marginal inflation. Excellent angiographic result was achieved. The patient received 225 mg of Plavix. He was already on Plavix. The sheath was then taken out and TR band applied as per protocol. There was good saturation in the fingers of the right hand of 94%. Patient received about a total of 8000 units of heparin intravenously and ACT was about 250 during the procedure. He also received 225 mg of Plavix. Excellent angiographic result without complication was achieved. Results were discussed with the patient and family and he will be discharged tomorrow, if he remains stable. MMODL / IJN: [id number] /
--- NOTE | 2017-06-29 11:21 | LTR ---
DATE OF SERVICE: 06/29/2017 RE: Zaire Coy Dear Dr. Bran; Thank you for allowing me to participate in the care of Mr. Zaire Mckeon. I am pleased to report to you that his previously stented RCA was widely patent. I performed stenting of mid LAD as well as the proximal circumflex marginal. He has a moderate plaque in the distal left main and proximal LAD, but this is not significant and this will be evaluated physiologically by a stress test down the road. Thank you for your referral and please call for questions. With kindest regards. Sincerely yours, MD KYM HernandezL / MAEVEN: [id number] /
[2017-06-29] MEDS ORDERED: ACETAMINOPHEN TAB 325 MG TAB PO PRN (12:10)
[2017-06-29] MEDS: MORPHINE SULFATE 4 MG/ML SYRINGE IVP PRN ×3 (12:22→19:39)
[2017-06-29] MEDS: METOPROLOL TARTRATE 12.5 MG TAB PO SCH (19:39)
[2017-06-29] MEDS ORDERED: LISINOPRIL 5 MG TAB PO SCH (21:00)
[2017-06-29] MEDS ORDERED: ATORVASTATIN 80 MG TAB PO SCH (21:00)
[2017-06-30] MEDS: SODIUM CHLORIDE 0.9% 1,000 ML IV SCH (03:57)
[2017-06-30 07:00] LABS: Basophils % (A) 1 %; Eosinophils # (A) 0.3 k/uL (0-0.7); Eosinophils % (A) 4 %; HCT 39.9 % (39.0-53.0); HGB 13.4 gm/dL (13.0-17.5); Lymphocytes # (A) 1.5 k/uL (1.0-4.8); Lymphocytes % (A) 19 %; MCH 31.3 pg (25.0-35.0); MCHC 33.6 g/dL (31.0-37.0); Mean Platelet Volume 7.2; Monocytes # (A) 0.6 k/uL (0-1.0); Monocytes % (A) 7 %; Neutrophils # (A) 5.3 k/uL (1.3-7.7); Neutrophils % (A) 67 %; Platelet Count 274 k/uL (150-450); RBC 4.29 m/uL (4.30-5.90); WBC 7.8 k/uL (3.8-10.6)
[2017-06-30 07:11] LABS: Anion Gap 8 mmol/L; Blood Urea Nitrogen 10 mg/dL (9-20); Calcium 9.2 mg/dL (8.4-10.2); Carbon Dioxide 27 mmol/L (22-30); Chloride 104 mmol/L (98-107); Glucose 90 mg/dL (74-99); Potassium 4.1 mmol/L (3.5-5.1); Sodium 139 mmol/L (137-145)
[2017-06-30 07:15] LABS: MCV 92.9 fL (80.0-100.0)
--- NOTE | 2017-06-30 07:55 | DS ---
DISCHARGE SUMMARY DATE OF ADMISSION: 06/29/2017. DATE OF DISCHARGE: 06/30/2017. DIAGNOSES: 1. Unstable angina with multivessel disease. 2. Recent acute inferior myocardial infarction with right coronary artery PCI. Mr. Mckeon was brought in electively to perform PCI of LAD and circumflex. He presented with acute inferior ST-elevation [place] underwent stenting of RCA performed on 06/13/17. He was brought in for the procedure electively. From the right radial approach, he underwent PTCA of mid LAD and also proximal circumflex marginal with drug- eluting stents. Excellent angiographic result was achieved. RCA was also checked and was widely patent. Post discharge course was unremarkable. This morning he is asymptomatic ambulating without symptoms. His labs and EKG are good. Blood pressure is 110/70, pulse rate is 66 per minute. S1, S2 heard normally. No JVD or carotid bruit. S1, S2 heard normally. Lungs are clear. Abdomen and lower extremity exam unremarkable. Right radial site is clean and dry with an excellent pulse. Discharge instructions regarding activity, diet and medications were given. Patient will be discharged today and he will see Dr. Cade in one week. The same medications including aspirin, Plavix, atorvastatin, beta rosi and lisinopril were advised. He was asked not to take omeprazole at least for the first couple of months and try Pepcid instead. MMODL / IJN: [id number] / MTDD
[2017-06-30] MEDS: METOPROLOL TARTRATE 12.5 MG TAB PO SCH (08:21)
[2017-06-30] MEDS ORDERED: ASPIRIN 81 MG PO SCH (09:00)
[2017-06-30] MEDS ORDERED: CLOPIDOGREL 75 MG TAB PO SCH (09:00)
[2017-06-30 09:30] VITALS: BP 111/69; PULSE 80; RESP 16; TEMP 98.2
[2017-06-30 10:35] VITALS: BMI 27.6
== END 2017-06-30 09:55 | disposition home or self-care (01) ==
LOC: CATHCVL 06:27 → 6SEL 15:42 → CATHCVL 20:05
PROVIDERS: ADMIT Internal Medicine Interventional Cardiology; ATTEND Internal Medicine Interventional Cardiology
DX: I21.19 ST elevation (STEMI) myocardial infarction involving other coronary artery of inferior wall (principal); I25.110 Atherosclerotic heart disease of native coronary artery with unstable angina pectoris; Z87.891 Personal history of nicotine dependence; Z79.899 Other long term (current) drug therapy; Z79.82 Long term (current) use of aspirin; Z79.02 Long term (current) use of antithrombotics/antiplatelets; Z95.5 Presence of coronary angioplasty implant and graft
CPT/HCPCS: 99156; 99157 ×4; 93454; 80048; 85025; G0378 ×2; C9600; C1887 ×5; C1769 ×2; C1725; C1874; C1894 ×2; J2001; J2250; J2270; J1170; J3010; J1644; J0583; Q9967; 93005

== ENCOUNTER 2017-07-05 18:47 | Inpatient (IN) | payer BC ==
[2017-07-05] MEDS ORDERED: NITROGLYCERIN OINT 1 INCH/GM PACKET TOPICAL STA (19:21)
[2017-07-05] MEDS ORDERED: MORPHINE SULFATE 4 MG/ML SYRINGE IV STA (19:21)
[2017-07-05] MEDS ORDERED: ASPIRIN 81 MG PO STA (19:21)
[2017-07-05 20:05] LABS: Basophils # (A) 0.1 k/uL (0-0.2); Basophils % (A) 1 %; Eosinophils # (A) 0.2 k/uL (0-0.7); Eosinophils % (A) 2 %; HCT 41.7 % (39.0-53.0); HGB 14.5 gm/dL (13.0-17.5); Lymphocytes % (A) 12 %; MCH 31.2 pg (25.0-35.0); MCHC 34.7 g/dL (31.0-37.0); MCV 90.1 fL (80.0-100.0); Mean Platelet Volume 7.1; Monocytes # (A) 0.6 k/uL (0-1.0); Monocytes % (A) 8 %; Neutrophils # (A) 6.2 k/uL (1.3-7.7); Neutrophils % (A) 75 %; Platelet Count 288 k/uL (150-450); RBC 4.63 m/uL (4.30-5.90); RDW 11.8 % (11.5-15.5); WBC 8.3 k/uL (3.8-10.6)
[2017-07-05 20:20] LABS: Prothrombin Time 9.8 sec (9.0-12.0)
[2017-07-05 20:24] LABS: ALT 56 U/L (21-72); AST 33 U/L (17-59); Albumin 4.3 g/dL (3.5-5.0); Alkaline Phosphatase 93 U/L (38-126); Blood Urea Nitrogen 17 mg/dL (9-20); Calcium 11.1 mg/dL (8.4-10.2); Carbon Dioxide 25 mmol/L (22-30); Chloride 102 mmol/L (98-107); Glucose 94 mg/dL (74-99); Magnesium 1.9 mg/dL (1.6-2.3); Potassium 4.6 mmol/L (3.5-5.1); Total Bilirubin 1.4 mg/dL (0.2-1.3); Total Protein 7.2 g/dL (6.3-8.2)
[2017-07-05 20:27] LABS: Partial Thromboplastin Time 22.2 sec (22.0-30.0)
[2017-07-05 20:33] LABS: Creatine Kinase MB 0.5 ng/mL (0.0-2.4)
[2017-07-05 20:34] LABS: Anion Gap 11 mmol/L; Sodium 138 mmol/L (137-145)
[2017-07-05 20:35] LABS: Troponin I 0.041 ng/mL (0.000-0.034)
--- NOTE | 2017-07-05 20:44 | XR ---
EXAMINATION TYPE: XR chest 2V DATE OF EXAM: 07/05/2017 COMPARISON: 06/13/2017 HISTORY: Chest pain TECHNIQUE: Frontal and lateral views of the chest are obtained. FINDINGS: There is no focal air space opacity, pleural effusion, or pneumothorax seen. The cardiac silhouette size is upper limits of normal in size. The osseous structures are intact. Chronic defor mity of the fourth posterior left rib is identified. IMPRESSION: No acute cardiopulmonary process.
[2017-07-05] MEDS ORDERED: NITROGLYCERIN SL TABS 0.4 MG TAB SUBLINGUAL PRN (21:12)
--- NOTE | 2017-07-05 21:12 | ED ---
Chest Pain HPI - General Chief Complaint: Chest Pain Stated Complaint: chest pain, has heart Hx Time Seen by Provider: 07/05/17 19:20 Source: patient Mode of arrival: wheelchair Limitations: no limitations - History of Present Illness Initial Comments: 6 years old male has history of coronary disease according to the patient he had a cardiac cath done and of May he had some stents put in a few days ago he had a chest pain he had another cath done and he had another couple of stents (according to the patient had a chest pain episode this morning it lasted for about over an hour S pain has settled down he still feels some pressure there and no shortness of breath he denies any headaches no neck stiffness has a chest pain no abdominal pain no frequency urgency dysuria - Related Data Previous Rx's Medication Instructions Recorded Aspirin 81 mg PO DAILY #30 chew 06/16/17 Atorvastatin [Lipitor] 80 mg PO HS #30 tab 06/16/17 Clopidogrel [Plavix] 75 mg PO DAILY #30 tab 06/16/17 Lisinopril [Zestril] 5 mg PO HS #30 tab 06/16/17 Nitroglycerin Sl Tabs [Nitrostat] 0.4 mg SUBLINGUAL Q5M PRN #25 tab 06/16/17 Metoprolol Tartrate [Lopressor] 12.5 mg PO BID tab 06/30/17 Allergies Allergy/AdvReac Type Severity Reaction Status Date / Time No Known Allergies Allergy Verified 07/05/17 19:24 Review of Systems ROS Statement: Those systems with pertinent positive or pertinent negative responses have been documented in the HPI. ROS Other: All systems not noted in ROS Statement are negative. EKG Findings - EKG Comments: EKG Findings:: I am EKG is sinus rhythm ventricular rate is 86 NV interval is 170 QRS duration is 82 QT/QTC 348/406 review of this EKG reveals T-wave inversion in lead [address] elevation noticed no ST depression noticed Past Medical History Past Medical History: Coronary Artery Disease (CAD), Chest Pain / Angina, GERD/ Reflux, Hyperlipidemia, Hypertension, Myocardial Infarction (VT) Additional Past Medical History / Comment(s): stent times three to RCA, STATES RT GROIN STILL BRUISED Last Myocardial Infarction Date:: 06/13/2017 History of Any Multi-Drug Resistant Organisms: None Reported Past Surgical History: No Surgical Hx Reported, Heart Catheterization With Stent Additional Past Surgical History / Comment(s): stent times 3 to RCA Past Anesthesia/Blood Transfusion Reactions: No Reported Reaction Additional Past Anesthesia/Blood Transfusion Reaction / Comment(s): has never had general anesthesia Date of Last Stent Placement:: 06/13/2017 Past Psychological History: No Psychological Hx Reported Smoking Status: Former smoker Past Alcohol Use History: Occasional Past Drug Use History: None Reported - Past Family History Father Family Medical History: Coronary Artery Disease (CAD) Additional Family Medical History / Comment(s): Father had his first VT in his 40's. He had CABG twice. He of a VT at the age of 67yrs. Mother Family Medical History: Coronary Artery Disease (CAD) Additional Family Medical History / Comment(s): Mother had CABG. She of a VT at the age of 67yrs. General Exam - General Exam Comments Initial Comments: General: The patient is awake and alert, in no distress, and does not appear acutely ill. Skin: Skin is warm and dry and no rashes or lesions are noted. Eye: Pupils are equal, round and reactive to light, extra-ocular movements are intact; there is normal conjunctiva bilaterally. Ears, nose, mouth and throat: There are moist mucous membranes and no oral lesions. Neck: The neck is supple, there is no tenderness or JVD. Cardiovascular: There is a regular rate and rhythm. No murmur, rub or gallop is appreciated. Respiratory: To auscultation bilateral, no wheezing no rhonchi no distress respiratory barragan noticed Gastrointestinal: Soft, non-distended, non-tender abdomen without masses or organomegaly noted. There is no rebound or guarding present. Bowel sounds are unremarkable. Back: There is no tenderness to palpation in the midline. There is no obvious deformity. Musculoskeletal: Normal ROM, no tenderness, There is no pedal edema. There is no calf tenderness or swelling. No cords were appreciated. Neurological: CN II-XII intact, Cranial nerves III through XII are intact. There are no obvious motor or sensory deficits. Coordination appears grossly intact. Speech is normal. Psychiatric: Cooperative, appropriate mood & affect, normal judgment. Limitations: no limitations Course Vital Signs 07/05/17 07/05/17 18:50 19:39 Temperature 97.0 F L Pulse Rate 94 80 Respiratory 18 18 Rate Blood Pressure 150/90 143/86 O2 Sat by Pulse 95 94 L Oximetry Labs are reviewed and patient is reassessed at term 9:11 PM, his troponin is elevated again CBC and chemistries are within normal range her EKG does have some T-wave inversions considering his several complex history him and admit him under Dr. pineda service service to and consult cardiology Disposition Clinical Impression: Chest pain Disposition: ADMITTED IP TO THIS HOSP Condition: Good Referrals: None,Stated [Primary Care Provider] - 1-2 days
[2017-07-05] MEDS: MORPHINE SULFATE/PF 10MG/10ML VL IVP PRN (22:35)
[2017-07-06 01:55] LABS: Creatine Kinase MB 0.5 ng/mL (0.0-2.4)
[2017-07-06 01:58] LABS: Troponin I 0.039 ng/mL (0.000-0.034)
[2017-07-06 03:32] VITALS: BMI 27.0
[2017-07-06] MEDS: NITROGLYCERIN SL TABS 0.4 MG TAB SUBLINGUAL PRN ×3 (06:22→06:32)
[2017-07-06] MEDS: MORPHINE SULFATE/PF 10MG/10ML VL IVP PRN (06:44)
[2017-07-06] MEDS ORDERED: ASPIRIN 325 MG TAB PO STA (08:15)
[2017-07-06] MEDS ORDERED: NITROGLYCERIN SL TABS 0.4 MG TAB SUBLINGUAL PRN (08:15)
[2017-07-06] MEDS ORDERED: ATORVASTATIN 80 MG TAB PO STA (08:15)
[2017-07-06] MEDS ORDERED: SODIUM CHLORIDE 0.9% 1,000 ML in EMPTY BAG 1 BAG IV ONE (08:15)
[2017-07-06] MEDS ORDERED: ALPRAZolam 0.5 MG TAB PO PRN (08:15)
[2017-07-06] MEDS ORDERED: ALPRAZolam 0.25 MG TAB PO PRN (08:15)
[2017-07-06] MEDS: METOPROLOL TARTRATE 12.5 MG TAB PO SCH ×2 (08:44→21:36)
[2017-07-06] MEDS: CLOPIDOGREL 75 MG TAB PO SCH (08:44)
[2017-07-06 08:51] LABS: Cholesterol 109 mg/dL (<200); HDL Cholesterol 30 mg/dL (40-60); LDL Cholesterol,Calculated 60 mg/dL (0-99); Triglycerides 97 mg/dL (<150)
[2017-07-06] MEDS ORDERED: ASPIRIN 325 MG TAB PO SCH (09:00)
[2017-07-06 09:01] LABS: Creatine Kinase MB 0.7 ng/mL (0.0-2.4); Troponin I 0.034 ng/mL (0.000-0.034)
[2017-07-06] MEDS ORDERED: LIDOCAINE 2% INJ 20 MG/ML (20 ML MDV) ONE (09:59)
--- NOTE | 2017-07-06 10:07 | CONS ---
CONSULTATION CHIEF COMPLAINT: Chest pain. HISTORY: Zaire is a 56-year-old gentleman with history of coronary artery disease, status post recent acute inferior wall myocardial infarction with cath and angioplasty of right coronary artery, who was brought in electively for stenting of LAD and circumflex coronary artery last week. This was done successfully. Patient went home, was doing well, started having chest pressure yesterday afternoon. It is moderate in intensity, associated with shortness of breath and some diaphoresis. It responded to sublingual nitroglycerin. He comes to the hospital and is admitted to hospital for the same. At the time of my evaluation, he still has some precordial chest discomfort. Labs show that his troponins are elevated at 0.04 and 0.03. EKG shows sinus rhythm with PVCs and evidence of prior inferior wall myocardial infarction. PAST MEDICAL HISTORY: Significant for coronary artery disease status post multivessel angioplasty, hypertension, dyslipidemia. CURRENT MEDICATIONS: 1. Aspirin. 2. Plavix 75 mg daily. 3. Lipitor 80 mg daily. 4. Zestril 5 mg daily. 5. Lopressor 12.5 b.i.d. ALLERGIES: There are no known drug allergies. FAMILY HISTORY: Negative for premature coronary artery disease. SOCIAL HISTORY: He denies current smoking or history of drug abuse. REVIEW OF SYSTEMS: HEENT: Unremarkable. CARDIAC: As described above. RESPIRATORY: Negative. GI: Negative. GENITOURINARY: Negative. SKIN: Negative. ENDOCRINE: Negative. CONSTITUTIONAL: Negative. ONCOLOGIC: Negative. The rest of the system review is not relevant. PHYSICAL EXAM: Comfortable at rest. Vital signs are stable. There is no jugular venous distention. Carotid upstroke is normal. There is no bruit. Chest exam reveals good air entry bilaterally. Heart exam reveals first and second heart sounds. No gallop. No murmur. No rub. Abdomen is soft, nontender. Exam of extremities did not reveal edema. Peripheral pulses are felt. LABS: Showed the hemoglobin is 14.5, platelet count is 288. Potassium is 4.6, creatinine is 0.7. AST and ALT are within normal limits. Two sets of troponins are elevated. ASSESSMENT: Acute non ST-segment elevation [place]. PLAN: I reviewed recent angiographic data, symptomatology, EKG, and lab tests. I advised him to undergo cardiac catheterization. Dr. Sheryl Larson performed angioplasty recently, will do the coronary angiogram and decide on further course of action. MMMATILDA / IJN: [id number] /
[2017-07-06] MEDS ORDERED: diphenhydrAMINE 50 MG/ML 1 ML VIAL ONE (10:15)
[2017-07-06] MEDS ORDERED: MIDAZOLAM 2 MG/2 ML VIAL ONE (10:15)
[2017-07-06] MEDS ORDERED: diphenhydrAMINE 50 MG/ML 1 ML VIAL IVP ONE (10:20)
[2017-07-06] MEDS ORDERED: MIDAZOLAM 2 MG/2 ML VIAL IVP ONE (10:20)
[2017-07-06] MEDS ORDERED: LIDOCAINE 2% INJ 20 MG/ML SQ ONE (10:25)
[2017-07-06] MEDS ORDERED: MORPHINE SULFATE 4 MG/ML SYRINGE ONE (10:45)
[2017-07-06] MEDS ORDERED: IOHEXOL 350 MG/ML (PER ML) 100ML BTL INJ ONE (10:47)
[2017-07-06] MEDS ORDERED: MORPHINE SULFATE 4 MG/ML SYRINGE IVP ONE (10:47)
[2017-07-06] MEDS ORDERED: RX INFO: IV CONTRAST WAS GIVEN 1 EACH MISC MISCELLANE PRN (10:55)
[2017-07-06] MEDS: SODIUM CHLORIDE 0.9% 1,000 ML IV SCH (12:54)
--- NOTE | 2017-07-06 13:34 | P.HPIM ---
History of Present Illness 56-year-old gentleman came in with complaints of chest pain pressure-like sensation across the chest area 10/27 severity lasted all day yesterday which completely resolved now associated with the some shortness of breath denied any diaphoresis nonpruritic in nature not associated with food denied any fever chills cough nausea vomiting. Patient had recent cardiac catheterization and stenting patient had minimal elevated troponin of 0.03 because of which patient is noncardiac catheterization considering his recent the stenting. Patient did not have any significant atherosclerotic vascular disease that can be stented or any blockages in the previous stents. Review of Systems REVIEW OF SYSTEMS: CONSTITUTIONAL: No fever, no malaise, no fatigue. HEENT: No recent visual problems or hearing problems. Denied any sore throat. CARDIOVASCULAR: No orthopnea, PND, no palpitations, no syncope. PULMONARY: No shortness of breath, no cough, no hemoptysis. GASTROINTESTINAL: No diarrhea, no nausea, no vomiting, no abdominal pain. Normoactive bowel sounds. NEUROLOGICAL: No headaches, no weakness, no numbness. HEMATOLOGICAL: Denies any bleeding or petechiae. GENITOURINARY: Denies any burning micturition, frequency, or urgency. MUSCULOSKELETAL/RHEUMATOLOGICAL: Denies any joint pain, swelling, or any muscle pain. ENDOCRINE: Denies any polyuria or polydipsia. The rest of the 14-point review of systems is negative. Past Medical History Past Medical History: Coronary Artery Disease (CAD), Chest Pain / Angina, GERD/ Reflux, Hyperlipidemia, Hypertension, Myocardial Infarction (NH) Additional Past Medical History / Comment(s): stent times three to RCA, STATES RT GROIN STILL BRUISED Last Myocardial Infarction Date:: 06/13/2017 History of Any Multi-Drug Resistant Organisms: None Reported Past Surgical History: No Surgical Hx Reported, Heart Catheterization With Stent Additional Past Surgical History / Comment(s): stent times 3 to RCA, 2 stents 04/06 (1 stent LAD, 1 stent OM) Past Anesthesia/Blood Transfusion Reactions: No Reported Reaction Additional Past Anesthesia/Blood Transfusion Reaction / Comment(s): has never had general anesthesia Date of Last Stent Placement:: 06/29/17 Past Psychological History: No Psychological Hx Reported Additional Psychological History / Comment(s): Pt resides alone. He is independent. Smoking Status: Former smoker Past Alcohol Use History: Occasional Additional Past Alcohol Use History / Comment(s): smoked less than 1/2ppd from teens until 2013 Past Drug Use History: None Reported - Past Family History Father Family Medical History: Coronary Artery Disease (CAD) Additional Family Medical History / Comment(s): Father had his first NH in his 40's. He had CABG twice. He of a NH at the age of 67yrs. Mother Family Medical History: Coronary Artery Disease (CAD) Additional Family Medical History / Comment(s): Mother had CABG. She of a NH at the age of 67yrs. Medications and Allergies Home Medications Medication Instructions Recorded Confirmed Type Aspirin 81 mg PO DAILY #30 chew 06/16/17 07/05/17 Rx Atorvastatin [Lipitor] 80 mg PO HS #30 tab 06/16/17 07/05/17 Rx Clopidogrel [Plavix] 75 mg PO DAILY #30 tab 06/16/17 07/05/17 Rx Lisinopril [Zestril] 5 mg PO HS #30 tab 06/16/17 07/05/17 Rx Nitroglycerin Sl Tabs [Nitrostat] 0.4 mg SUBLINGUAL Q5M PRN #25 tab 06/16/17 Rx Metoprolol Tartrate [Lopressor] 12.5 mg PO BID tab 06/30/17 07/05/17 Rx Allergies Allergy/AdvReac Type Severity Reaction Status Date / Time No Known Allergies Allergy Verified 07/05/17 19:24 Physical Exam Vitals: Vital Signs Temp Pulse Pulse Resp BP BP BP 07/06/17 08:00 97.6 F 63 16 93/52 07/06/17 06:36 76 18 107/60 07/06/17 06:31 74 18 107/66 07/06/17 06:26 79 18 109/62 07/06/17 06:21 61 18 105/70 07/06/17 04:00 18 07/06/17 03:15 97 F L 70 18 126/73 07/06/17 02:59 97.1 F L 61 16 102/57 07/06/17 01:25 62 16 92/56 07/06/17 00:00 64 18 93/52 07/05/17 23:54 97.8 F 65 18 105/52 07/05/17 22:33 81 18 121/61 07/05/17 21:36 77 18 133/76 07/05/17 19:39 80 18 143/86 07/05/17 18:50 97.0 F L 94 18 150/90 Pulse Ox 07/06/17 08:00 98 07/06/17 06:36 93 L 07/06/17 06:31 95 07/06/17 06:26 96 07/06/17 06:21 95 07/06/17 04:00 07/06/17 03:15 94 L 07/06/17 02:59 97 07/06/17 01:25 98 07/06/17 00:00 100 07/05/17 23:54 97 07/05/17 22:33 98 07/05/17 21:36 99 07/05/17 19:39 94 L 07/05/17 18:50 95 Intake and Output 07/05/17 07/06/17 07/06/17 22:59 06:59 14:59 Intake Total 200 Balance 200 Intake: IV 200 Other: Voiding Method Toilet Urinal # Voids 1 Weight 88.451 kg 88 kg PHYSICAL EXAMINATION: GENERAL: The patient is alert and oriented x3, not in any acute distress. Well developed, well nourished. HEENT: Pupils are round and equally reacting to light. EOMI. No scleral icterus. No conjunctival pallor. Normocephalic, atraumatic. No pharyngeal erythema. No thyromegaly. CARDIOVASCULAR: S1 and S2 present. No murmurs, rubs, or gallops. PULMONARY: Chest is clear to auscultation, no wheezing or crackles. ABDOMEN: Soft, nontender, nondistended, normoactive bowel sounds. No palpable organomegaly. MUSCULOSKELETAL: No joint swelling or deformity. EXTREMITIES: No cyanosis, clubbing, or pedal edema. NEUROLOGICAL: Gross neurological examination did not reveal any focal deficits. SKIN: No rashes. Results CBC & Chem 7: 07/05/17 19:35 07/05/17 19:35 Labs: Abnormal Lab Results - Last 24 Hours (Table) 07/05/17 07/05/17 07/06/17 Range/Units 19:35 19:35 01:00 Calcium 11.1 H (8.4-10.2) mg/dL Total Bilirubin 1.4 H (0.2-1.3) mg/dL Total Creatine Kinase 52 L 46 L (55-170) U/L Troponin I 0.041 H* 0.039 H* (0.000-0.034) ng/mL HDL Cholesterol (40-60) mg/dL 07/06/17 07/06/17 Range/Units 07:49 07:49 Calcium (8.4-10.2) mg/dL Total Bilirubin (0.2-1.3) mg/dL Total Creatine Kinase 44 L (55-170) U/L Troponin I (0.000-0.034) ng/mL HDL Cholesterol 30 L (40-60) mg/dL Thrombosis Risk Factor Assmnt - Choose All That Apply Any of the Below Risk Factors Present?: Yes Each Factor Represents 1 point: Acute NH, Age 41-60 years, Obesity (BMI >25) Thrombosis Risk Factor Assessment Total Risk Factor Score: 3 Thrombosis Risk Factor Assessment Level: Moderate Risk Assessment and Plan Plan: Chest pain: Rule out acute coronary syndromes patient is status post cardiac catheterization, no significant stenosis in the previous stents. Patient did not have any new stents. Patient will be monitored overnight for possibility of discharge tomorrow. Patient does not have any systolic dysfunction -Gastroesophageal reflux disease next and-history of coronary artery disease -Hyperlipidemia -Hypertension For above-mentioned chronic medical problems patient will be resumed and continued on his home medications
--- NOTE | 2017-07-06 18:19 | CC ---
CARDIAC CATHETERIZATION REPORT DATE OF SERVICE: 07/06/2017 PROCEDURE PERFORMED: Left heart catheterization, coronary angiography and left ventriculography. PERFORMED BY: Dr. Mable Larson. CLINICAL INFORMATION: Mr. Zaire Mckeon is a 56-year-old gentleman who underwent stenting of a RCA very dominant vessel performed in the setting of an acute myocardial infarction performed about 3 weeks ago. Subsequently because of significant multivessel disease after due discussion with the patient, he was brought in on June 29 a week ago and I performed stenting of his mid LAD and proximal obtuse marginal. This was performed from the right radial approach. He was discharged uneventfully but came into the hospital with episode of chest pain, which seemed very atypical and his troponins were negative. Given the fact he has multivessel intervention he was advised coronary angiography and I discussed with him the rationale, risks, benefits, options and then performed the procedure. PROCEDURE NOTE: Under local anesthesia and strict aseptic precautions, from the right femoral approach, a 6-Gambian introducer was placed in the right femoral artery. Using standard Jj catheters I performed coronary angiography and a pigtail catheter was used to check LV pressures and LV-gram was performed in 30 degree AGUILERA projection. Patient tolerated procedure well without complications. The sheath was taken out and a Perclose device used to secure hemostasis and he was sent to the room in a stable condition. CARDIAC CATHETERIZATION FINDINGS: Right coronary artery: Dominant vessel that was stented 3 weeks ago. Widely patent in the midportion where there is a large stent placed. Distally, the stented segment is widely patent. The PDA was jailed, but the flow is good and appears to be a NYA-3 flow. PLV was stented and is a large disease-free vessel. There is no more than 30- 35% narrowing in the stented area and between the stented segments also, but overall the flow is brisk and I do not see any compromise on the entire dominant RCA system. Left main coronary artery: Patent, disease-free vessel distally has a 50-20% narrowing and bifurcates into LAD and circumflex. Left anterior descending coronary artery: This vessel was stented in the midportion, appears to be widely patent at this time. The stented segment is free of any restenosis. The smaller septal and diagonal branches have mild disease. In the mid and distal RCA, there are multiple irregularities up to 40% but overall flow is brisk and the stented segment in mid LAD is widely patent. Left posterior circumflex coronary artery: Nondominant vessel. The first obtuse marginal that was stented is widely patent with good flow. The continuation of circumflex in the second obtuse marginal in the groove branch have diffuse disease in multiple areas and this was unchanged compared to the previous angiogram. Left ventriculogram: This was performed in 30 degree AGUILERA projection and revealed left ventricle which is of normal size with good systolic function. There is evidence of mild inferobasal hypokinesia with estimated ejection fraction of nearly 50% by visual inspection. There is no significant mitral regurgitation. FINAL IMPRESSION: This patient has widely patent LAD, 1st obtuse marginal and RCA at the site of previous stenting. There is diffuse disease in the [place] circumflex as well as in the PDA branch of RCA, but these are not any different from the previous angiogram from the 12th of this month. Results were then discussed in great detail with the patient, and daughter. He is advised medical therapy with risk factor modification and consider a stress test down the road in 4 weeks. SEDATION: Moderate conscious sedation time was 32 minutes. The patient tolerated the procedure well without complication and will be discharged tomorrow. MMODL / IJN: [id number] /
[2017-07-06] MEDS ORDERED: ATORVASTATIN 80 MG TAB PO SCH (21:00)
[2017-07-06] MEDS ORDERED: LISINOPRIL 5 MG TAB PO SCH (21:00)
[2017-07-07] MEDS: SODIUM CHLORIDE 0.9% 1,000 ML IV SCH (01:44)
[2017-07-07 06:29] LABS: Basophils % (A) 1 %; Eosinophils # (A) 0.3 k/uL (0-0.7); Eosinophils % (A) 4 %; HCT 41.1 % (39.0-53.0); HGB 14.2 gm/dL (13.0-17.5); Lymphocytes # (A) 1.3 k/uL (1.0-4.8); Lymphocytes % (A) 17 %; MCH 31.6 pg (25.0-35.0); MCHC 34.6 g/dL (31.0-37.0); MCV 91.3 fL (80.0-100.0); Monocytes # (A) 0.6 k/uL (0-1.0); Monocytes % (A) 8 %; Neutrophils # (A) 5.1 k/uL (1.3-7.7); Neutrophils % (A) 68 %; Platelet Count 269 k/uL (150-450); RDW 11.8 % (11.5-15.5); WBC 7.5 k/uL (3.8-10.6)
[2017-07-07 06:36] LABS: Anion Gap 10 mmol/L; Blood Urea Nitrogen 16 mg/dL (9-20); Calcium 9.3 mg/dL (8.4-10.2); Carbon Dioxide 25 mmol/L (22-30); Chloride 106 mmol/L (98-107); Glucose 93 mg/dL (74-99); Sodium 141 mmol/L (137-145)
[2017-07-07 06:39] LABS: Potassium 4.2 mmol/L (3.5-5.1)
[2017-07-07] MEDS ORDERED: ASPIRIN 81 MG PO SCH ×2 (09:00)
[2017-07-07] MEDS: METOPROLOL TARTRATE 12.5 MG TAB PO SCH (09:05)
[2017-07-07] MEDS: CLOPIDOGREL 75 MG TAB PO SCH (09:05)
[2017-07-07 09:14] VITALS: RESP 16
--- NOTE | 2017-07-07 12:21 | P.PN ---
Subjective Progress Note Date: 07/07/17 Principal diagnosis: Chest pain This is a 56-year-old gentleman with known history of coronary artery disease and prior acute inferior wall myocardial infarction with angioplasty of the right coronary artery was brought electively for stenting of the LAD and circumflex last week, this was done successfully. Patient went home and again developed some chest pressure, for this reason he was brought back to the hospital. His troponins were mildly abnormal EKG showed sinus rhythm with PVCs and evidence of prior inferior wall PA. The decision was made to repeat the cardiac catheterization which was performed yesterday by Dr. Mable Larson. Cardiac catheterization revealed a widely patent LAD, first obtuse marginal and RCA at the site of previous stenting were patent. There is diffuse disease in the [place] circumflex as well as the PDA branch of the RCA, unchanged from prior. Results were discussed in detail with the patient and daughter and medical therapy was advised. He was seen and examined this morning, denies any chest pain or difficulty in breathing. Hemodynamically stable. Objective - Vital Signs Vital signs: Vital Signs Temp 97.6 F 07/07/17 08:00 Pulse 68 07/07/17 08:00 Resp 16 07/07/17 08:00 BP 104/55 07/07/17 08:00 Pulse Ox 98 07/07/17 08:00 Intake & Output 07/06/17 07/07/17 07/07/17 18:59 06:59 18:59 Intake Total 644 825 360 Output Total 800 1 Balance -156 824 360 Weight 88 kg Intake: IV 200 Intake, IV Titration 825 Amount Sodium Chloride 0.9% 1, 825 000 ml @ 75 mls/hr IV . [id number] [facility] Rx#:[id number] Oral 444 360 Output: Urine 800 Urine/Stool Mix 1 Other: Voiding Method Toilet Urinal # Voids 1 - Exam PHYSICAL EXAMINATION: HEENT: Head is atraumatic, normocephalic. Pupils equal, round. Neck is supple. There is no elevated jugular venous pressure. HEART EXAMINATION: Heart S1, S2 normal. No murmur or gallop heard. CHEST EXAMINATION: Lungs are clear to auscultation and precussion. No chest wall tenderness is noted on palpation or with deep breathing. ABDOMEN: Soft, nontender. Bowel sounds are heard. No organomegaly noted. Right groin soft, no evidence of any hematoma. EXTREMITIES: 2+ peripheral pulses with no evidence of peripheral edema and no calf tenderness noted. NEUROLOGIC patient is awake, alert and oriented -3. . - Labs CBC & Chem 7: 07/07/17 05:56 18 05:56 Assessment and Plan Plan: Assessment and plan #1 chest pain status post cardiac catheterization, medical therapy advised at this time. #2 known history of coronary artery disease status post recent acute inferior wall PA with angioplasty and stenting of the RCA, subsequent stenting of the LAD and circumflex last week. #3 hypertension #4 hyperlipidemia Plan From cardiology's perspective, patient may be able to be discharged home today. He did have a follow-up appointment with Dr. Cade scheduled for tomorrow which we will reschedule for one week out. He will be discharged home on aspirin 81 mg daily, Lipitor 80 mg daily, Plavix 75 mg daily, lisinopril 5 mg daily, metoprolol 12-1/2 mg twice a day, and sublingual nitroglycerin as needed for chest pain. DNP note has been reviewed, I agree with a documented findings and plan of care. Patient was seen and examined.
[2017-07-07 12:40] VITALS: BP 102/54; PULSE 70; TEMP 97
--- NOTE | 2017-07-07 13:10 | P.DS ---
Providers Date of admission: 07/05/17 21:12 Attending physician: Rashid Kumar Consults: 07/05/17 21:12 Consult Physician Urgent Consulting Provider: Celsa Ibarra Consult Reason/Comments: Reactive diseasecad Do you want consulting provider notified?: Yes Primary care physician: Stated None Hospital Course: 56-year-old gentleman came in with complaints of chest pain pressure-like sensation across the chest area 7/10 severity lasted all day yesterday which completely resolved now associated with the some shortness of breath denied any diaphoresis nonpruritic in nature not associated with food denied any fever chills cough nausea vomiting. Patient had recent cardiac catheterization and stenting patient had minimal elevated troponin of 0.03 because of which patient is noncardiac catheterization considering his recent the stenting. Patient did not have any significant atherosclerotic vascular disease that can be stented or any blockages in the previous stents. 07/07/2017 Patient is feeling better today denied any lightheadedness is being discharged today patient can take catheterization did not show any significant atherosclerotic blockages and coronary vasculature PHYSICAL EXAMINATION: GENERAL: The patient is alert and oriented x3, not in any acute distress. Well developed, well nourished. HEENT: Pupils are round and equally reacting to light. EOMI. No scleral icterus. No conjunctival pallor. Normocephalic, atraumatic. No pharyngeal erythema. No thyromegaly. CARDIOVASCULAR: S1 and S2 present. No murmurs, rubs, or gallops. PULMONARY: Chest is clear to auscultation, no wheezing or crackles. ABDOMEN: Soft, nontender, nondistended, normoactive bowel sounds. No palpable organomegaly. MUSCULOSKELETAL: No joint swelling or deformity. EXTREMITIES: No cyanosis, clubbing, or pedal edema. NEUROLOGICAL: Gross neurological examination did not reveal any focal deficits. SKIN: No rashes. Assessment and Plan Plan: Chest pain: Rule out acute coronary syndromes patient is status post cardiac catheterization, no significant stenosis in the previous stents. -Gastroesophageal reflux disease next and-history of coronary artery disease -Hyperlipidemia -Hypertension Patient Condition at Discharge: Good Plan - Discharge Summary Discharge Rx Participant: No New Discharge Prescriptions: Continue Aspirin 81 mg PO DAILY #30 chew Atorvastatin [Lipitor] 80 mg PO HS #30 tab Clopidogrel [Plavix] 75 mg PO DAILY #30 tab Lisinopril [Zestril] 5 mg PO HS #30 tab Nitroglycerin Sl Tabs [Nitrostat] 0.4 mg SUBLINGUAL Q5M PRN #25 tab PRN Reason: Chest Pain Metoprolol Tartrate [Lopressor] 12.5 mg PO BID tab Discharge Medication List Aspirin 81 mg PO DAILY #30 chew 06/16/17 [Rx] Atorvastatin [Lipitor] 80 mg PO HS #30 tab 06/16/17 [Rx] Clopidogrel [Plavix] 75 mg PO DAILY #30 tab 06/16/17 [Rx] Lisinopril [Zestril] 5 mg PO HS #30 tab 06/16/17 [Rx] Nitroglycerin Sl Tabs [Nitrostat] 0.4 mg SUBLINGUAL Q5M PRN #25 tab 06/16/17 [Rx ] Metoprolol Tartrate [Lopressor] 12.5 mg PO BID tab 06/30/17 [Rx] Follow up Appointment(s)/Referral(s): Vinod Bran MD [REFERRING] - 3 Days None,Stated [Primary Care Provider] - 1-2 days Arthur Cade MD [STAFF PHYSICIAN] - 10 Days Patient Instructions/Handouts: *Surgery [facility] - After Heart Catheterization - [employer] Instructions Discharge Disposition: HOME SELF-CARE
== END 2017-07-07 15:00 | disposition home or self-care (01) | DRG 287 ==
LOC: EC 18:47 → 6SEL 21:12
PROVIDERS: ADMIT Hospitalist; ATTEND Hospitalist
PROC: B2111ZZ Fluoroscopy of Multiple Coronary Arteries using Low Osmolar Contrast (ICD-10-PCS; 2017-07-06)
PROC: B2151ZZ Fluoroscopy of Left Heart using Low Osmolar Contrast (ICD-10-PCS; 2017-07-06)
PROC: 4A023N7 Measurement of Cardiac Sampling and Pressure, Left Heart, Percutaneous Approach (ICD-10-PCS; principal; 2017-07-06 10:00)
DX: R07.9 Chest pain, unspecified (principal); E78.00 Pure hypercholesterolemia, unspecified; E78.5 Hyperlipidemia, unspecified; I25.10 Atherosclerotic heart disease of native coronary artery without angina pectoris; I10 Essential (primary) hypertension; Z95.5 Presence of coronary angioplasty implant and graft; I25.2 Old myocardial infarction; K21.9 Gastro-esophageal reflux disease without esophagitis; I49.3 Ventricular premature depolarization; Z87.891 Personal history of nicotine dependence; Z82.49 Family history of ischemic heart disease and other diseases of the circulatory system; Z79.82 Long term (current) use of aspirin; Z79.02 Long term (current) use of antithrombotics/antiplatelets; Z79.899 Other long term (current) drug therapy
CPT/HCPCS: 36415; 71046; 80048; 80053; 80061; 82550; 82553; 83735; 84484; 85025; 85610; 85730; 93005; 93458; 96374; 96376; 99285

== ENCOUNTER 2017-08-23 10:12 | Observation (INO) | payer BC ==
[2017-08-23] MEDS ORDERED: ASPIRIN 81 MG PO STA (10:45)
[2017-08-23] MEDS ORDERED: NITROGLYCERIN OINT 1 INCH/GM PACKET TOPICAL STA (10:46)
--- NOTE | 2017-08-23 10:53 | ED ---
General Adult HPI - General Chief complaint: Chest Pain Stated complaint: CHEST PAIN, CONSTIPATION, URINE RETENTION Time Seen by Provider: 08/23/17 10:15 Source: patient, RN notes reviewed Mode of arrival: wheelchair Limitations: no limitations - History of Present Illness Initial comments: This is a 56-year-old male who presents emergency Department with a past medical history of a heart attack in May. Patient was started on Lexapro about 10 days ago for depression. Patient comes in today complaining of some chest pain with some shortness of breath which is now subsided down to about a 2 out of 10 discomfort. Patient denies any diaphoresis or nausea. Patient states he is been experiencing some constipation over the last 24 hours and some urinary retention over the last 24 hours. Patient states she's never had a problem with this before but is getting painful to try to have a bowel movement or urinate. Patient denies any fever chills or cough. Patient denies any back pain. Patient denies any lightheadedness or dizziness. Patient denies any previous history of any prostate problems. - Related Data Previous Rx's Medication Instructions Recorded Aspirin 81 mg PO DAILY #30 chew 06/16/17 Atorvastatin [Lipitor] 80 mg PO HS #30 tab 06/16/17 Clopidogrel [Plavix] 75 mg PO DAILY #30 tab 06/16/17 Lisinopril [Zestril] 5 mg PO HS #30 tab 06/16/17 Nitroglycerin Sl Tabs [Nitrostat] 0.4 mg SUBLINGUAL Q5M PRN #25 tab 06/16/17 Metoprolol Tartrate [Lopressor] 12.5 mg PO BID tab 06/30/17 Allergies Allergy/AdvReac Type Severity Reaction Status Date / Time No Known Allergies Allergy Verified 08/23/17 10:17 Review of Systems ROS Statement: Those systems with pertinent positive or pertinent negative responses have been documented in the HPI. ROS Other: All systems not noted in ROS Statement are negative. Past Medical History Past Medical History: Coronary Artery Disease (CAD), Chest Pain / Angina, GERD/ Reflux, Hyperlipidemia, Hypertension, Myocardial Infarction (CT) Additional Past Medical History / Comment(s): stent times three to RCA, STATES RT GROIN STILL BRUISED Last Myocardial Infarction Date:: 06/13/2017 History of Any Multi-Drug Resistant Organisms: None Reported Past Surgical History: No Surgical Hx Reported, Heart Catheterization With Stent Additional Past Surgical History / Comment(s): stent times 3 to RCA, 2 stents 04/06 (1 stent LAD, 1 stent OM) Past Anesthesia/Blood Transfusion Reactions: No Reported Reaction Additional Past Anesthesia/Blood Transfusion Reaction / Comment(s): has never had general anesthesia Date of Last Stent Placement:: 06/29/17 Past Psychological History: No Psychological Hx Reported Smoking Status: Former smoker Past Alcohol Use History: Occasional Past Drug Use History: None Reported - Past Family History Father Family Medical History: Coronary Artery Disease (CAD) Additional Family Medical History / Comment(s): Father had his first CT in his 40's. He had CABG twice. He of a CT at the age of 67yrs. Mother Family Medical History: Coronary Artery Disease (CAD) Additional Family Medical History / Comment(s): Mother had CABG. She of a CT at the age of 67yrs. General Exam - General Exam Comments Initial Comments: GENERAL: Patient is well-developed and well-nourished. Patient is nontoxic and well- hydrated and is in mild distress. ENT: Neck is soft and supple. No significant lymphadenopathy is noted. Oropharynx is clear. Moist mucous membranes. Neck has full range of motion without eliciting any pain. EYES: The sclera were anicteric and conjunctiva were pink and moist. Extraocular movements were intact and pupils were equal round and reactive to light. Eyelids were unremarkable. PULMONARY: Unlabored respirations. Good breath sounds bilaterally. No audible rales rhonchi or wheezing was noted. CARDIOVASCULAR: There is a regular rate and rhythm without any murmurs gallops or rubs. ABDOMEN: Abdomen is somewhat tender in the suprapubic region and distended. No palpable organomegaly was noted. There is no palpable pulsatile mass. SKIN: Skin is clear with no lesions or rashes and otherwise unremarkable. NEUROLOGIC: Patient is alert and oriented x3. Cranial nerves II through XII are grossly intact. Motor and sensory are also intact. Normal speech, volume and content. Symmetrical smile. MUSCULOSKELETAL: Normal extremities with adequate strength and full range of motion. No lower extremity swelling or edema. No calf tenderness. LYMPHATICS: No significant lymphadenopathy is noted PSYCHIATRIC: Normal psychiatric evaluation. Normal interpersonal interactions appears functionally intact in deals appropriately with others. No signs of depression. No signs of anxiety. Limitations: no limitations Course Vital Signs 08/23/17 10:15 Temperature 98.0 F Pulse Rate 67 Respiratory 20 Rate Blood Pressure 118/69 O2 Sat by Pulse 98 Oximetry Medical Decision Making - Medical Decision Making EKG shows sinus bradycardia with occasional PVCs at 59 bpm GA interval is 182 QRS is 86 QT interval 420 QTC is 4:15. Patient's EKG is compared to an old EKG no acute changes are noted. Chest x-ray shows no acute abnormality. KUB shows constipation. Patient had a Herron catheter placed and over thousand cc of urine out. I spoke with Dr. Jenkins he agreed to admit the patient admitted the patient wrote admitting orders - Lab Data Result diagrams: 08/23/17 10:33 08/23/17 10:33 Lab Results 08/23/17 08/23/17 08/23/17 Range/Units 10:33 10:33 10:33 WBC 6.9 (3.8-10.6) k/uL RBC 4.59 (4.30-5.90) m/uL Hgb 14.3 (13.0-17.5) gm/dL Hct 40.9 (39.0-53.0) % MCV 89.1 (80.0-100.0) fL MCH 31.2 (25.0-35.0) pg MCHC 35.0 (31.0-37.0) g/dL RDW 11.9 (11.5-15.5) % Plt Count 219 (150-450) k/uL Neutrophils % 73 % Lymphocytes % 15 % Monocytes % 7 % Eosinophils % 2 % Basophils % 0 % Neutrophils # 5.0 (1.3-7.7) k/uL Lymphocytes # 1.1 (1.0-4.8) k/uL Monocytes # 0.5 (0-1.0) k/uL Eosinophils # 0.2 (0-0.7) k/uL Basophils # 0.0 (0-0.2) k/uL PT (9.0-12.0) sec INR (<1.2) APTT (22.0-30.0) sec Sodium 141 (137-145) mmol/L Potassium 3.9 (3.5-5.1) mmol/L Chloride 105 (98-107) mmol/L Carbon Dioxide 24 (22-30) mmol/L Anion Gap 12 mmol/L BUN 11 (9-20) mg/dL Creatinine 0.60 L (0.66-1.25) mg/dL Est GFR (CKD-EPI)AfAm >90 (>60 ml/min/1.73 sqM) Est GFR (CKD-EPI)NonAf >90 (>60 ml/min/1.73 sqM) Glucose 107 H (74-99) mg/dL Calcium 9.4 (8.4-10.2) mg/dL Magnesium 1.7 (1.6-2.3) mg/dL Total Bilirubin 1.9 H (0.2-1.3) mg/dL AST 26 (17-59) U/L ALT 42 (21-72) U/L Alkaline Phosphatase 93 (38-126) U/L Total Creatine Kinase 40 L (55-170) U/L CK-MB (CK-2) 0.4 (0.0-2.4) ng/mL CK-MB (CK-2) Rel Index 1.0 Troponin I 0.015 (0.000-0.034) ng/mL Total Protein 6.8 (6.3-8.2) g/dL Albumin 4.1 (3.5-5.0) g/dL 08/23/17 Range/Units 10:33 WBC (3.8-10.6) k/uL RBC (4.30-5.90) m/uL Hgb (13.0-17.5) gm/dL Hct (39.0-53.0) % MCV (80.0-100.0) fL MCH (25.0-35.0) pg MCHC (31.0-37.0) g/dL RDW (11.5-15.5) % Plt Count (150-450) k/uL Neutrophils % % Lymphocytes % % Monocytes % % Eosinophils % % Basophils % % Neutrophils # (1.3-7.7) k/uL Lymphocytes # (1.0-4.8) k/uL Monocytes # (0-1.0) k/uL Eosinophils # (0-0.7) k/uL Basophils # (0-0.2) k/uL PT 9.8 (9.0-12.0) sec INR 1.0 (<1.2) APTT 21.6 L (22.0-30.0) sec Sodium (137-145) mmol/L Potassium (3.5-5.1) mmol/L Chloride (98-107) mmol/L Carbon Dioxide (22-30) mmol/L Anion Gap mmol/L BUN (9-20) mg/dL Creatinine (0.66-1.25) mg/dL Est GFR (CKD-EPI)AfAm (>60 ml/min/1.73 sqM) Est GFR (CKD-EPI)NonAf (>60 ml/min/1.73 sqM) Glucose (74-99) mg/dL Calcium (8.4-10.2) mg/dL Magnesium (1.6-2.3) mg/dL Total Bilirubin (0.2-1.3) mg/dL AST (17-59) U/L ALT (21-72) U/L Alkaline Phosphatase (38-126) U/L Total Creatine Kinase (55-170) U/L CK-MB (CK-2) (0.0-2.4) ng/mL CK-MB (CK-2) Rel Index Troponin I (0.000-0.034) ng/mL Total Protein (6.3-8.2) g/dL Albumin (3.5-5.0) g/dL Disposition Clinical Impression: Chest pain, Urinary retention, Constipation Disposition: ADMITTED IP TO THIS HOSP Referrals: Vinod Bran MD [Primary Care Provider] - 1-2 days Time of Disposition: 12:38
[2017-08-23 10:58] LABS: Basophils % (A) 0 %; Eosinophils # (A) 0.2 k/uL (0-0.7); Eosinophils % (A) 2 %; HCT 40.9 % (39.0-53.0); HGB 14.3 gm/dL (13.0-17.5); Lymphocytes # (A) 1.1 k/uL (1.0-4.8); Lymphocytes % (A) 15 %; MCH 31.2 pg (25.0-35.0); MCV 89.1 fL (80.0-100.0); Mean Platelet Volume 7.4; Monocytes # (A) 0.5 k/uL (0-1.0); Monocytes % (A) 7 %; Neutrophils % (A) 73 %; Platelet Count 219 k/uL (150-450); RBC 4.59 m/uL (4.30-5.90); RDW 11.9 % (11.5-15.5); WBC 6.9 k/uL (3.8-10.6)
[2017-08-23 11:07] LABS: ALT 42 U/L (21-72); AST 26 U/L (17-59); Albumin 4.1 g/dL (3.5-5.0); Alkaline Phosphatase 93 U/L (38-126); Anion Gap 12 mmol/L; Blood Urea Nitrogen 11 mg/dL (9-20); Calcium 9.4 mg/dL (8.4-10.2); Carbon Dioxide 24 mmol/L (22-30); Chloride 105 mmol/L (98-107); Glucose 107 mg/dL (74-99); Magnesium 1.7 mg/dL (1.6-2.3); Potassium 3.9 mmol/L (3.5-5.1); Sodium 141 mmol/L (137-145); Total Bilirubin 1.9 mg/dL (0.2-1.3); Total Protein 6.8 g/dL (6.3-8.2)
[2017-08-23 11:31] LABS: Creatine Kinase MB 0.4 ng/mL (0.0-2.4); Troponin I 0.015 ng/mL (0.000-0.034)
[2017-08-23 11:55] LABS: Prothrombin Time 9.8 sec (9.0-12.0)
[2017-08-23 11:56] LABS: Partial Thromboplastin Time 21.6 sec (22.0-30.0)
--- NOTE | 2017-08-23 12:01 | XR ---
EXAMINATION TYPE: XR chest 2V DATE OF EXAM: 08/23/2017 HISTORY: Chest Pain. REFERENCE: Previous study dated 07/05/2017. FINDINGS: The lungs are clear. Pleural space are clear. The heart is not enlarged. IMPRESSION: NO ACTIVE INTRATHORACIC DISEASE.
--- NOTE | 2017-08-23 12:02 | XR ---
EXAMINATION TYPE: XR KUB , 2 VIEWS DATE OF EXAM ORDERED: 08/23/2017 HISTORY: Constipation. COMPARISON: None. FINDINGS: The lung bases are clear. Within the abdomen, the abdominal gas pattern is normal. There is no evidence of obstruction or free air. No unusual calcifications are seen. IMPRESSION: NO ACUTE INTRA-ABDOMINAL ABNORMALITY.
[2017-08-23] MEDS ORDERED: NITROGLYCERIN SL TABS 0.4 MG TAB SUBLINGUAL PRN (12:40)
[2017-08-23 14:40] VITALS: BMI 25.7
[2017-08-23 16:48] LABS: Creatine Kinase 74 U/L (55-170)
[2017-08-23 17:01] LABS: Creatine Kinase MB 0.3 ng/mL (0.0-2.4); Troponin I <0.012 ng/mL (0.000-0.034)
[2017-08-23] MEDS ORDERED: POLYETHYLENE GLYCOL 3350 17 GM POWD.PACK PO PRN (19:19)
[2017-08-23] MEDS ORDERED: DOCUSATE 100 MG CAP PO PRN (19:19)
[2017-08-23] MEDS: NITROGLYCERIN OINT 1 INCH/GM PACKET TOPICAL SCH ×2 (19:23→23:17)
[2017-08-23] MEDS: METOPROLOL TARTRATE 12.5 MG TAB PO SCH (20:00)
[2017-08-23] MEDS: LISINOPRIL 5 MG TAB PO SCH (20:01)
[2017-08-23] MEDS: ATORVASTATIN 80 MG TAB PO SCH (20:01)
--- NOTE | 2017-08-23 22:13 | P.HPIM ---
History of Present Illness H&P Date: 08/23/17 Chief Complaint: Chest pain Patient is a 56-year-old male with a known history of coronary artery disease with history of recent stent placement in June 2017, GERD, hypertension, hyperlipidemia came to the hospital with complaints of chest pain associated with shortness of breath and numbness of both hands. Apparently patient has been having constipation and last bowel movement on Thursday. Patient was straining for bowel movement when he experienced this chest pain. Patient also has urinary retention for the last 24 hours. patient says that he never had problems with bowel movement or passing urine. Patient was started on Lexapro about 10 days ago for depression. Patient denies any fever chills or cough. Patient denies any back pain. Patient denies any lightheadedness or dizziness. Patient denies any previous history of any prostate problems. Patient denied any weakness. No numbness or tingling. No paresthesias in the lower extremities. Patient was placed on Herron catheter in the ER and also patient did have bowel movement. Chest x-ray and KUB x-ray showed no acute process EKG showed sinus bradycardia Troponin 2 negative Review of Systems Constitutional: Patient denies any fever or chills . No generalized weakness or weight loss. Abdomen: Patient denied nausea vomiting and diarrhea and abdominal pain. Cardiovascular: Patient denies any chest pain or short of breath no palpitations. Respiratory: patient denied any cough is from production. No shortness of breath Neurologic: Patient denied any numbness or tingling headache. Musculoskeletal: Patient denies any complaints of joint swelling or deformity. Skin: Negative Psychiatric: Negative Endocrine: No heat or cold intolerance. No recent weight gain. Genitourinary: No dysuria or hematuria. All other 14 point ROS negative except the above Past Medical History Past Medical History: Coronary Artery Disease (CAD), Chest Pain / Angina, GERD/ Reflux, Hyperlipidemia, Hypertension, Myocardial Infarction (AK) Additional Past Medical History / Comment(s): stent times three to RCA, STATES RT GROIN STILL BRUISED Last Myocardial Infarction Date:: 06/25/2017 History of Any Multi-Drug Resistant Organisms: None Reported Past Surgical History: No Surgical Hx Reported, Heart Catheterization With Stent Additional Past Surgical History / Comment(s): stent times 3 to RCA, 2 stents 04/06 (1 stent LAD, 1 stent OM) Past Anesthesia/Blood Transfusion Reactions: No Reported Reaction Additional Past Anesthesia/Blood Transfusion Reaction / Comment(s): has never had general anesthesia Date of Last Stent Placement:: 06/29/17 Past Psychological History: No Psychological Hx Reported Additional Psychological History / Comment(s): Pt resides alone. He is independent. Smoking Status: Former smoker Past Alcohol Use History: Occasional Additional Past Alcohol Use History / Comment(s): smoked less than 1/2ppd from teens until 2013 Past Drug Use History: None Reported - Past Family History Father Family Medical History: Coronary Artery Disease (CAD) Additional Family Medical History / Comment(s): Father had his first AK in his 40's. He had CABG twice. He of a AK at the age of 67yrs. Mother Family Medical History: Coronary Artery Disease (CAD) Additional Family Medical History / Comment(s): Mother had CABG. She of a AK at the age of 67yrs. Medications and Allergies Home Medications Medication Instructions Recorded Confirmed Type Aspirin 81 mg PO DAILY #30 chew 06/16/17 08/23/17 Rx Atorvastatin [Lipitor] 80 mg PO HS #30 tab 06/16/17 08/23/17 Rx Clopidogrel [Plavix] 75 mg PO DAILY #30 tab 06/16/17 08/23/17 Rx Lisinopril [Zestril] 5 mg PO HS #30 tab 06/16/17 08/23/17 Rx Nitroglycerin Sl Tabs [Nitrostat] 0.4 mg SUBLINGUAL Q5M PRN #25 tab 06/16/1710/05 Rx Metoprolol Tartrate [Lopressor] 12.5 mg PO BID tab 06/30/17 08/23/17 Rx Allergies Allergy/AdvReac Type Severity Reaction Status Date / Time No Known Allergies Allergy Verified 08/23/17 13:13 Physical Exam Vitals: Vital Signs Temp Pulse Pulse Resp BP BP Pulse Ox 08/23/17 13:10 97.6 F 67 16 130/77 97 08/23/17 12:57 98.2 F 78 16 117/68 96 08/23/17 10:15 98.0 F 67 20 118/69 98 Intake and Output 08/23/17 08/23/17 08/23/17 06:59 14:59 22:59 Output Total 2150 Balance -2150 Output: Urine 2150 Uretheral (Herron) 950 Other: Voiding Method Indwelling Catheter Weight 83.915 kg PHYSICAL EXAMINATION: Patient is lying in the bed comfortably, no acute distress, awake alert and oriented.. HEENT: Normocephalic. Neck is supple. Pupils reactive. Nostrils clear. Oral cavity is moist. Ears reveal no drainage. Neck reveals no JVD, carotid bruits, or thyromegaly. CHEST EXAMINATION: Trachea is central. Symmetrical expansion. Lung salvador clear to auscultation and percussion. CARDIAC: Normal S1, S2 with no gallops. No murmurs ABDOMEN: Soft. Bowel sounds normal. No organomegaly. No abdominal bruits. Extremities: reveal no edema. No clubbing or cyanosis Neurologically awake, alert, oriented x3 with well-coordinated movements. No focal deficits noted Skin: No rash or skin lesions. Psychiatric: Coperative. Nonsuicidal Musculoskeletal: No joint swelling or deformity. Normal range of motion. Results CBC & Chem 7: 08/23/17 10:33 08/23/17 10:33 Labs: Abnormal Lab Results - Last 24 Hours (Table) 08/23/17 08/23/17 08/23/17 Range/Units 10:33 10:33 10:33 APTT 21.6 L (22.0-30.0) sec Creatinine 0.60 L (0.66-1.25) mg/dL Glucose 107 H (74-99) mg/dL Total Bilirubin 1.9 H (0.2-1.3) mg/dL Total Creatine Kinase 40 L (55-170) U/L Thrombosis Risk Factor Assmnt - DVT/VTE Prophylaxis DVT/VTE Prophylaxis: Pharmacologic Prophylaxis ordered - Choose All That Apply Each Factor Represents 1 point: Age 41-60 years, Obesity (BMI >25) Thrombosis Risk Factor Assessment Total Risk Factor Score: 2 Thrombosis Risk Factor Assessment Level: Low Risk Assessment and Plan Assessment: Atypical chest pain a patient with recent history of stent placement Acute Urinary retention and constipation. rule out BPH Coronary artery disease with history of stent placement in June 2017 Hypertension Hyperlipidemia next and depression. Recently started on Lexapro DVT prophylaxis Plan: Patient be continued on telemetry monitoring and serial troponin 2 negative. We will get ultrasound to rule out BPH. Check a PSA level. Continue the Herron catheter and follow closely. Cardiology was consulted for further is no chest pain and recent stent placement. Time with Patient: Greater than 30
[2017-08-23 22:51] LABS: Creatine Kinase 31 U/L (55-170)
[2017-08-23 23:03] LABS: Creatine Kinase MB 0.3 ng/mL (0.0-2.4); Troponin I <0.012 ng/mL (0.000-0.034)
[2017-08-24] MEDS: NITROGLYCERIN OINT 1 INCH/GM PACKET TOPICAL SCH (03:23)
[2017-08-24 03:44] LABS: Cholesterol 106 mg/dL (<200); HDL Cholesterol 34 mg/dL (40-60); LDL Cholesterol,Calculated 58 mg/dL (0-99); Triglycerides 72 mg/dL (<150)
--- NOTE | 2017-08-24 07:26 | US ---
EXAMINATION TYPE: US prostate transrectal DATE OF EXAM: 08/23/2017 COMPARISON: NONE CLINICAL HISTORY: urinary retention. Urine retention, patient unable to urinate within a 24 hour aleksey od This examination was performed using the transrectal probe. EXAM MEASUREMENTS: Gland Size: 4.4 x 2.5 x 4.8cm Volume: 26.68ml Predicted PSA: 3.2 Actual PSA (if available): unavailable Initial images show seminal vesicles to appear within normal limits. Prostate is upper limits of norm al in size. It is slightly heterogeneous with some central zone calcifications. No worrisome nodule i s identified. IMPRESSION: Prostate gland is within normal limits in size, no suspicious nodule is evident.
--- NOTE | 2017-08-24 08:55 | P.CRDCN ---
History of Present Illness Consult date: 08/24/17 History of present illness: Mr. Coy is a pleasant 56-year-old male past medical history significant for coronary artery disease, gastroesophageal reflux disease, hypertension, dyslipidemia and former tobacco use. He follows with Dr. Cade in the office. We have been asked to see him in consultation for chest pain. He states Thursday night he was struggling with urinating. He woke up Thursday morning and still could not urinate. He was straining to go and developed a tight pain in the mid-sternal chest that was associated with nausea and diaphoresis. The pain was momentary, lasting only 1-2 minutes. It resolved on its own with no specific alleviating factor. He continued with inability to urinate so he came to ED for evaluation. Herron catheter was placed and he had over 1000 cc of urine output initially. Since then output total has been 3,350 cc. His chest pain has subsided and telemetry tracings have been unremarkable. He initially presented in May 2017 with STEMI and underwent angioplasty of distal RCA and PLV branch of RCA. He then came back electively for angioplasty of mid-LAD and circumflex. Two weeks later he came back with chest pain and elevated troponins. Repeat catheterization revealed patent stents to mid-RCA, mid-LAD, proximal OM with diffuse disease throughout the coronary artery system. Films were reviewed by Dr. Escudero. He has since seen Dr. Cade in the office and was started on Imdur 30 mg daily for ongoing symptoms of chest discomfort. EKG reveals sinus mechanism with T-wave inversions in inferior leads as well as Q-waves and early repolarization. Chest xray negative for an acute cardiopulmonary process. Abdominal xray negative for acute process. Transrectal U/S show normal size prostate gland with no suspicious nodule. Laboratory data reviewed, hgb 14.3, plt 219, sodium 141, potassium 3.9, magnesium 1.9, creatinine 0.60, cardiac enzymes negative 3 , LDL 58, HDL 34. Current cardiac medications include Lopressor 12.5 mg twice a day, lisinopril 5 mg daily, Plavix 75 mg daily, atorvastatin 80 mg daily, aspirin 81 mg daily and Imdur 30 mg daily. He states he has been compliant with his medications as prescribed. Most recent echocardiogram reveals EF 45-50%. Review of Systems At the time of my exam: CONSTITUTIONAL: Denies fever. Denies chills. EYES: Denies blurred vision. Denies vision changes. Denies eye pain. EARS, NOSE, MOUTH & THROAT: Denies headache. Denies sore throat. Denies ear pain. CARDIOVASCULAR: Denies chest pain. Denies shortness of breath. Denies orthopnea. Denies PND. Denies palpitations. RESPIRATORY: Denies cough. GASTROINTESTINAL: Denies abdominal pain. Denies diarrhea. Denies constipation. Denies nausea. Denies vomiting. MUSCULOSKELETAL: Denies myalgias. INTEGUMENTARY: Denies pruitis. Denies rash. NEUROLOGIC: Denies numbness. Denies tingling. Denies weakness. PSYCHIATRIC: Denies anxiety. Denies depression. ENDOCRINE: Denies fatigue. Denies weight change. Denies polydipsia. Denies polyurina. GENITOURINARY: Denies burning, hematuria or urgency with micturation. HEMATOLOGIC: Denies history of anemia. Denies bleeding. Past Medical History Past Medical History: Coronary Artery Disease (CAD), Chest Pain / Angina, GERD/ Reflux, Hyperlipidemia, Hypertension, Myocardial Infarction (ID) Additional Past Medical History / Comment(s): stent times three to RCA, STATES RT GROIN STILL BRUISED Last Myocardial Infarction Date:: 06/25/2017 History of Any Multi-Drug Resistant Organisms: None Reported Past Surgical History: No Surgical Hx Reported, Heart Catheterization With Stent Additional Past Surgical History / Comment(s): stent times 3 to RCA, 2 stents 04/06 (1 stent LAD, 1 stent OM) Past Anesthesia/Blood Transfusion Reactions: No Reported Reaction Additional Past Anesthesia/Blood Transfusion Reaction / Comment(s): has never had general anesthesia Date of Last Stent Placement:: 06/29/17 Past Psychological History: No Psychological Hx Reported Additional Psychological History / Comment(s): Pt resides alone. He is independent. Smoking Status: Former smoker Past Alcohol Use History: Occasional Additional Past Alcohol Use History / Comment(s): smoked less than 1/2ppd from teens until 2014 Past Drug Use History: None Reported - Past Family History Father Family Medical History: Coronary Artery Disease (CAD) Additional Family Medical History / Comment(s): Father had his first ID in his 40's. He had CABG twice. He of a ID at the age of 67yrs. Mother Family Medical History: Coronary Artery Disease (CAD) Additional Family Medical History / Comment(s): Mother had CABG. She of a ID at the age of 67yrs. Medications and Allergies Home Medications Medication Instructions Recorded Confirmed Type Aspirin 81 mg PO DAILY #30 chew 06/16/17 08/23/17 Rx Atorvastatin [Lipitor] 80 mg PO HS #30 tab 06/16/17 08/23/17 Rx Clopidogrel [Plavix] 75 mg PO DAILY #30 tab 06/16/17 08/23/17 Rx Lisinopril [Zestril] 5 mg PO HS #30 tab 06/16/17 08/23/17 Rx Nitroglycerin Sl Tabs [Nitrostat] 0.4 mg SUBLINGUAL Q5M PRN #25 tab 06/16/1710/05 Rx Metoprolol Tartrate [Lopressor] 12.5 mg PO BID tab 06/30/17 08/23/17 Rx Allergies Allergy/AdvReac Type Severity Reaction Status Date / Time No Known Allergies Allergy Verified 08/23/17 13:13 Physical Exam Vitals: Vital Signs Temp Pulse Pulse Resp BP BP Pulse Ox 08/24/17 08:10 95 08/24/17 07:28 98.2 F 58 L 16 134/63 95 08/24/17 03:20 18 08/24/17 03:18 97.7 F 62 18 109/65 93 L 08/23/17 23:17 98.0 F 56 L 16 125/75 95 08/23/17 20:00 98.0 F 61 16 116/74 95 08/23/17 16:00 97.8 F 70 16 117/64 96 08/23/17 13:10 97.6 F 67 16 130/77 97 08/23/17 12:57 98.2 F 78 16 117/68 96 08/23/17 10:15 98.0 F 67 20 118/69 98 Intake and Output 08/23/17 08/24/17 08/24/17 22:59 06:59 14:59 Output Total 0 1200 Balance 0 -1200 Output: Urine 1200 Stool 0 Other: Voiding Method Indwelling Catheter Indwelling Catheter Blood pressure 134/63 heart rate 58 afebrile maintaining oxygen saturation on room air GENERAL: This is a 56-year-old male in no apparent distress at the time of my examination. HEENT: Head is atraumatic, normocephalic. Pupils are equal, round. Sclerae anicteric. Conjunctivae are clear. Mucous membranes of the mouth are moist. Neck is supple. There is no jugular venous distention. No carotid bruit is heard. LUNGS: Clear to auscultation no wheezes, rales or rhonchi. No chest wall tenderness is noted on palpation or with deep breathing. HEART: Regular rate and rhythm without murmurs, rubs or gallops. S1 and S2 heard. ABDOMEN: Soft, nontender. Bowel sounds are heard. No organomegaly noted. EXTREMITIES: No evidence of peripheral edema and no calf tenderness noted. VASCULAR: Radial and dorsalis pedis pulses palpated, no evidence of clubbing. NEUROLOGIC: Patient is awake, alert and oriented x3. Results 08/23/17 10:33 08/23/17 10:33 Cardiac Enzymes 08/23/17 08/23/17 08/23/17 Range/Units 10:33 10:33 16:09 AST 26 (17-59) U/L CK-MB (CK-2) 0.4 0.3 (0.0-2.4) ng/mL Troponin I 0.015 <0.012 (0.000-0.034) ng/mL 08/23/17 Range/Units 22:09 AST (17-59) U/L CK-MB (CK-2) 0.3 (0.0-2.4) ng/mL Troponin I <0.012 (0.000-0.034) ng/mL Coagulation 08/23/17 Range/Units 10:33 PT 9.8 (9.0-12.0) sec APTT 21.6 L (22.0-30.0) sec Lipids 08/24/17 Range/Units 03:11 Triglycerides 72 (<150) mg/dL Cholesterol 106 (<200) mg/dL HDL Cholesterol 34 L (40-60) mg/dL CBC 08/23/17 Range/Units 10:33 WBC 6.9 (3.8-10.6) k/uL RBC 4.59 (4.30-5.90) m/uL Hgb 14.3 (13.0-17.5) gm/dL Hct 40.9 (39.0-53.0) % Plt Count 219 (150-450) k/uL Comprehensive Metabolic Panel 08/23/17 Range/Units 10:33 Sodium 141 (137-145) mmol/L Potassium 3.9 (3.5-5.1) mmol/L Chloride 105 (98-107) mmol/L Carbon Dioxide 24 (22-30) mmol/L BUN 11 (9-20) mg/dL Creatinine 0.60 L (0.66-1.25) mg/dL Glucose 107 H (74-99) mg/dL Calcium 9.4 (8.4-10.2) mg/dL AST 26 (17-59) U/L ALT 42 (21-72) U/L Alkaline Phosphatase 93 (38-126) U/L Total Protein 6.8 (6.3-8.2) g/dL Albumin 4.1 (3.5-5.0) g/dL Current Medications Generic Name Dose Route Start Last Admin Trade Name Freq PRN Reason Stop Dose Admin Aspirin 325 mg 08/24/17 09:00 Aspirin PO DAILY [facility] Atorvastatin Calcium 80 mg 08/23/17 21:00 08/23/17 20:01 Lipitor PO 80 mg HS [facility] Administration Clopidogrel Bisulfate 75 mg 08/24/17 09:00 Plavix PO DAILY [facility] Docusate Sodium 100 mg 08/23/17 19:19 Colace PO DAILY PRN Constipation Isosorbide Mononitrate 60 mg 08/24/17 09:00 Imdur PO DAILY [facility] Lisinopril 5 mg 08/23/17 21:00 08/23/17 20:01 Zestril PO 5 mg HS [facility] Administration Metoprolol Tartrate 12.5 mg 08/23/17 21:00 08/23/17 20:00 Lopressor PO 12.5 mg BID [facility] Administration Nitroglycerin 0.4 mg 08/23/17 12:40 Nitrostat SUBLINGUAL Q5M PRN Chest Pain Polyethylene Glycol 17 gm 08/23/17 19:19 Miralax PO DAILY PRN Constipation Intake and Output 08/23/17 08/24/17 08/24/17 22:59 06:59 14:59 Output Total 0 1200 Balance 0 -1200 Output: Urine 1200 Stool 0 Other: Voiding Method Indwelling Catheter Indwelling Catheter 08/23/17 10:33 08/23/17 10:33 Assessment and Plan Assessment: ASSESSMENT 1. Chest pain, an acute coronary event has been ruled out. 2. Multi-vessel coronary artery disease, recent stenting with diffuse disease, films reviewed by Dr. Escudero. 3. Hypertension 4. Dyslipidemia 5. Former nicotine dependence 6. Urinary retention PLAN Discontinue nitropaste. Resume aspirin 81 mg, plavix 75 mg, lisinopril 5 mg, lopressor 12.5 mg BID and increase imdur to 60 mg daily. May consider adding Ranexa if chest pain persists. Increase activity as tolerated. Ongoing medical management of urinary retention. Follow up with Dr. Cade in 2 weeks. Thank you kindly for this consultation. Nurse Practitioner note has been reviewed, I agree with a documented findings and plan of care. Patient was seen and examined.
[2017-08-24] MEDS: METOPROLOL TARTRATE 12.5 MG TAB PO SCH ×2 (10:28→20:31)
[2017-08-24] MEDS: ISOSORBIDE MONONITRATE ER 60 MG TAB.ER.24H PO SCH (10:28)
[2017-08-24] MEDS: CLOPIDOGREL 75 MG TAB PO SCH (10:28)
[2017-08-24] MEDS: ASPIRIN 325 MG TAB PO SCH (10:28)
[2017-08-24] MEDS: LISINOPRIL 5 MG TAB PO SCH (20:31)
[2017-08-24] MEDS: ATORVASTATIN 80 MG TAB PO SCH (20:31)
[2017-08-24] MEDS ORDERED: TAMSULOSIN 0.4 MG CAP.ER.24H PO SCH (21:30)
--- NOTE | 2017-08-25 01:01 | P.PN ---
Subjective Progress Note Date: 08/24/17 Principal diagnosis: Chest pain and urinary retention Patient is a 56-year-old male with a known history of coronary artery disease with history of recent stent placement in June 2017, GERD, hypertension, hyperlipidemia came to the hospital with complaints of chest pain associated with shortness of breath and numbness of both hands. Apparently patient has been having constipation and last bowel movement on Thursday. Patient was straining for bowel movement when he experienced this chest pain. Patient also has urinary retention for the last 24 hours. patient says that he never had problems with bowel movement or passing urine. Patient was started on Lexapro about 10 days ago for depression. Patient denies any fever chills or cough. Patient denies any back pain. Patient denies any lightheadedness or dizziness. Patient denies any previous history of any prostate problems. Patient denied any weakness. No numbness or tingling. No paresthesias in the lower extremities. Patient was placed on Herron catheter in the ER and also patient did have bowel movement. Chest x-ray and KUB x-ray showed no acute process EKG showed sinus bradycardia Troponin 2 negative 08/24/2017 Patient denied any complaints of chest pain or shortness of breath today. ACS was ruled out. Cardiology recommends no further workup at this time. Imdur was added. Otherwise Herron cath has been discontinued and trial void. Patient will be started on Flomax. Patient seems very depressed and not getting out of the bed otherwise. Patient was recently started on Lexapro which has been held at this time. No fever no chills. No nausea vomiting or abdominal pain. All other review of systems negative except the above Active Medications Generic Name Dose Route Start Last Admin Trade Name Freq PRN Reason Stop Dose Admin Aspirin 325 mg 08/24/17 09:00 08/24/17 10:28 Aspirin PO 325 mg DAILY [facility] Atorvastatin Calcium 80 mg 08/23/17 21:00 08/24/17 20:31 Lipitor PO 80 mg HS [facility] Administration Clopidogrel Bisulfate 75 mg 08/24/17 09:00 08/24/17 10:28 Plavix PO 75 mg DAILY [facility] Administration Docusate Sodium 100 mg 08/23/17 19:19 Colace PO DAILY PRN Constipation Isosorbide Mononitrate 60 mg 08/24/17 09:00 08/24/17 10:28 Imdur PO 60 mg DAILY [facility] Administration Lisinopril 5 mg 08/23/17 21:00 08/24/17 20:31 Zestril PO 5 mg HS [facility] Administration Metoprolol Tartrate 12.5 mg 08/23/17 21:00 08/24/17 20:31 Lopressor PO 12.5 mg BID [facility] Administration Nitroglycerin 0.4 mg 08/23/17 12:40 Nitrostat SUBLINGUAL Q5M PRN Chest Pain Polyethylene Glycol 17 gm 08/23/17 19:19 Miralax PO DAILY PRN Constipation Tamsulosin HCl 0.4 mg 08/24/17 21:30 08/24/17 21:26 Flomax PO 0.4 mg PC-SUPPER [facility] Administration Objective - Vital Signs Vital signs: Vital Signs Temp 97.6 F 08/24/17 20:00 Pulse 60 08/24/17 20:00 Resp 16 08/24/17 20:00 BP 118/68 08/24/17 20:00 Pulse Ox 93 L 08/24/17 20:00 Intake & Output 08/24/17 08/24/17 08/25/17 06:59 18:59 06:59 Intake Total 320 Output Total 1200 350 Balance -1200 -30 Intake: Oral 320 Output: Urine 1200 350 Stool 0 0 Other: Voiding Method Indwelling Catheter Indwelling Catheter - Exam PHYSICAL EXAMINATION: Patient is lying in the bed comfortably, no acute distress, awake alert and oriented.. HEENT: Normocephalic. Neck is supple. Pupils reactive. Nostrils clear. Oral cavity is moist. Ears reveal no drainage. Neck reveals no JVD, carotid bruits, or thyromegaly. CHEST EXAMINATION: Trachea is central. Symmetrical expansion. Lung salvador clear to auscultation and percussion. CARDIAC: Normal S1, S2 with no gallops. No murmurs ABDOMEN: Soft. Bowel sounds normal. No organomegaly. No abdominal bruits. Extremities: reveal no edema. No clubbing or cyanosis Neurologically awake, alert, oriented x3 with well-coordinated movements. No focal deficits noted Skin: No rash or skin lesions. Psychiatric: Coperative. Seems depressed. Nonsuicidal Musculoskeletal: No joint swelling or deformity. Normal range of motion. - Labs CBC & Chem 7: 08/23/17 10:33 08/23/17 10:33 Labs: Abnormal Lab Results - Last 24 Hours (Table) 08/23/17 08/24/17 Range/Units 22:09 03:11 Total Creatine Kinase 31 L (55-170) U/L HDL Cholesterol 34 L (40-60) mg/dL Assessment and Plan Assessment: Atypical chest pain a patient with recent history of stent placement ACS ruled out Acute Urinary retention and constipation. Ultrasound showed no BPH. Coronary artery disease with history of stent placement in June 2017 Hypertension Hyperlipidemia depression. Recently started on Lexapro. On hold now DVT prophylaxis Plan: Patient will be continued on telemetry monitoring and serial troponin 3 negative. Transrectal ultrasound showed no prostate enlargement.. We'll discontinue Herron catheter and trial void. Patient will be started on Flomax. If the patient is still having urinary retention will consider urology consult. Cardiology recommends no further workup at this time. Continue to follow closely. Time with Patient: Greater than 30
[2017-08-25 08:08] VITALS: BP 119/70; PULSE 72; RESP 18; TEMP 97.7
[2017-08-25] MEDS: ASPIRIN 325 MG TAB PO SCH (08:51)
[2017-08-25] MEDS: ISOSORBIDE MONONITRATE ER 60 MG TAB.ER.24H PO SCH (08:51)
[2017-08-25] MEDS: METOPROLOL TARTRATE 12.5 MG TAB PO SCH (08:52)
[2017-08-25] MEDS: CLOPIDOGREL 75 MG TAB PO SCH (08:52)
--- NOTE | 2017-08-25 13:38 | P.PN ---
Subjective Progress Note Date: 08/25/17 Mr. Coy is a pleasant 56-year-old male past medical history significant for coronary artery disease, gastroesophageal reflux disease, hypertension, dyslipidemia and former tobacco use. He follows with Dr. Cade in the office. We have been asked to see him in consultation for chest pain. He states Thursday night he was struggling with urinating. He woke up Thursday morning and still could not urinate. He was straining to go and developed a tight pain in the mid-sternal chest that was associated with nausea and diaphoresis. The pain was momentary, lasting only 1-2 minutes. It resolved on its own with no specific alleviating factor. He continued with inability to urinate so he came to ED for evaluation. Pereira catheter was placed and he had over 1000 cc of urine output initially. Since then output total has been 3,350 cc. His chest pain has subsided and telemetry tracings have been unremarkable. He initially presented in May 2017 with STEMI and underwent angioplasty of distal RCA and PLV branch of RCA. He then came back electively for angioplasty of mid-LAD and circumflex. Two weeks later he came back with chest pain and elevated troponins. Repeat catheterization revealed patent stents to mid-RCA, mid-LAD, proximal OM with diffuse disease throughout the coronary artery system. Films were reviewed by Dr. Escudero. He has since seen Dr. Cade in the office and was started on Imdur 30 mg daily for ongoing symptoms of chest discomfort. EKG reveals sinus mechanism with T-wave inversions in inferior leads as well as Q-waves and early repolarization. Chest xray negative for an acute cardiopulmonary process. Abdominal xray negative for acute process. Transrectal U/S show normal size prostate gland with no suspicious nodule. Laboratory data reviewed, hgb 14.3, plt 219, sodium 141, potassium 3.9, magnesium 1.9, creatinine 0.60, cardiac enzymes negative 3 , LDL 58, HDL 34. Current cardiac medications include Lopressor 12.5 mg twice a day, lisinopril 5 mg daily, Plavix 75 mg daily, atorvastatin 80 mg daily, aspirin 81 mg daily and Imdur 30 mg daily. He states he has been compliant with his medications as prescribed. Most recent echocardiogram reveals EF 45-50%. 08/25/2017 Mr. Mckeon is seen and examined today resting comfortably in bed. He denies any further symptoms of chest pain. No shortness of breath, nausea, vomiting, dizziness of palpitations. His pereira catheter has been removed and he has urinated twice on his own without difficulty. Flomax was started yesterday per primary. Blood pressure 119/70 heart rate 72 afebrile maintaining oxygen saturation on room air. Objective - Vital Signs Vital signs: Vital Signs Temp 97.7 F 08/25/17 07:40 Pulse 72 08/25/17 07:40 Resp 18 08/25/17 08:00 BP 119/70 08/25/17 07:40 Pulse Ox 93 L 08/25/17 07:40 Intake & Output 08/24/17 08/25/17 08/25/17 18:59 06:59 18:59 Intake Total 320 240 Output Total 350 1200 0 Balance -30 -1200 240 Intake: Oral 320 240 Output: Urine 350 1200 Stool 0 0 Other: Voiding Method Indwelling Catheter Urinal Toilet Urinal # Voids 0 # Bowel Movements 1 - Exam GENERAL: Well-appearing, well-nourished and in no acute distress. NECK: Supple without JVD or thyromegaly. LUNGS: Breath sounds clear to auscultation bilaterally. Respiration equal and unlabored. No wheezes, rales or rhonchi. HEART: Regular rate and rhythm without murmurs, rubs or gallops. S1 and S2 heard. EXTREMITIES: Normal range of motion, no edema. No clubbing or cyanosis. Peripheral pulses intact and strong. - Labs CBC & Chem 7: 08/23/17 10:33 08/23/17 10:33 Assessment and Plan Assessment: ASSESSMENT 1. Chest pain, an acute coronary event has been ruled out. 2. Multi-vessel coronary artery disease, recent stenting with diffuse disease, films reviewed by Dr. Escudero. 3. Hypertension 4. Dyslipidemia 5. Former nicotine dependence 6. Urinary retention PLAN Stable from a cardiac perspective. Continue with aspirin, plavix, lisinopril, lopressor and imdur at increased dose of 60 mg daily. Plan has been discussed with the patient and he is agreeable. Follow up with Dr. Cade in 2 weeks. Nurse Practitioner note has been reviewed, I agree with a documented findings and plan of care. Patient was seen and examined.
--- NOTE | 2017-08-25 18:30 | DS ---
DISCHARGE SUMMARY FINAL DIAGNOSES: 1. Chest pain. Myocardial infarction ruled out. 2. History of recent stent placement. 3. Acute urinary retention. 4. Constipation. 5. Coronary artery disease, stent placement. 6. Hypertension. 7. Hyperlipidemia. DISCHARGE DISPOSITION: The patient will be discharged in stable condition with guarded prognosis. Cardiology cleared the patient. HISTORY OF PRESENT ILLNESS: This 56-year-old gentleman with a past medical history of multiple medical problems, as mentioned earlier, was admitted with chest pain. The patient also had urinary retention. Myocardial infarction was ruled out. Cardiology saw the patient and recommended outpatient followup. On exam, vitals are stable. CARDIOVASCULAR SYSTEM: S1, S2 muffled. ABDOMEN: Soft. NERVOUS SYSTEM: No focal deficit. The dose of Imdur was increased by Cardiology. DISCHARGE ADVICE AND MEDICATIONS: 1. Diet is cardiac. 2. Activity limited until followup. 3. Follow up with Cardiology and primary physician as recommended. 4. Aspirin 81 mg p.o. daily. 5. Lipitor 80 mg at bedtime. 6. Plavix 75 mg p.o. daily. 7. Colace 100 mg p.o. daily. 8. Imdur ER 60 mg p.o. daily. 9. Zestril 5 mg p.o. at bedtime. 10.Lopressor 12.5 mg b.i.d. 11.Nitrostat 0.4 sublingually p.r.n. 12.Flomax 0.4 mg at bedtime. Once again, the patient will be discharged in stable condition with guarded prognosis. MMODL / IJN: [id number] /
== END 2017-08-25 13:10 | disposition home or self-care (01) ==
LOC: EC 10:12 → 3SUR 12:40 → 3OBS 19:00
PROVIDERS: ADMIT Internal Medicine; ATTEND Internal Medicine
DX: R07.89 Other chest pain (principal); R33.9 Retention of urine, unspecified; K59.00 Constipation, unspecified; R06.02 Shortness of breath; I25.10 Atherosclerotic heart disease of native coronary artery without angina pectoris; K21.9 Gastro-esophageal reflux disease without esophagitis; I10 Essential (primary) hypertension; E78.5 Hyperlipidemia, unspecified; F32.9 Major depressive disorder, single episode, unspecified; E66.9 Obesity, unspecified; Z68.25 Body mass index [BMI] 25.0-25.9, adult; Z95.5 Presence of coronary angioplasty implant and graft; I25.2 Old myocardial infarction; Z87.891 Personal history of nicotine dependence; Z79.02 Long term (current) use of antithrombotics/antiplatelets; Z79.82 Long term (current) use of aspirin; Z79.899 Other long term (current) drug therapy; Z82.49 Family history of ischemic heart disease and other diseases of the circulatory system
CPT/HCPCS: 51702 ×2; 99285 ×2; 36415; 94760; 93005; 84153; 80061; 80053; 82550; 82553; 83735; 84484; 85025; 85610; 85730; 71046; 74018; 76872; G0378 ×3

== ENCOUNTER → 2019-01-03 | Outpatient (CLI) | payer BC ==
[2019-01-03 08:40] LABS: HGB 14.9 gm/dL (13.0-17.5); MCH 31.5 pg (25.0-35.0); MCHC 33.9 g/dL (31.0-37.0); Mean Platelet Volume 7.2; Platelet Count 233 k/uL (150-450); RBC 4.73 m/uL (4.30-5.90); RDW 12.4 % (11.5-15.5); WBC 8.5 k/uL (3.8-10.6)
[2019-01-03 08:49] LABS: African American GFR (CKD) >90 (>60 ml/min/1.73 sqM); Anion Gap 7 mmol/L; Blood Urea Nitrogen 16 mg/dL (9-20); Carbon Dioxide 30 mmol/L (22-30); Chloride 103 mmol/L (98-107); Potassium 4.1 mmol/L (3.5-5.1); Sodium 140 mmol/L (137-145)
== END | disposition home or self-care (01) ==
LOC: LABPAT 08:08
PROVIDERS: ATTEND Internal Medicine Cardiovascular Disease
DX: Z01.812 Encounter for preprocedural laboratory examination (principal); I25.118 Atherosclerotic heart disease of native coronary artery with other forms of angina pectoris
CPT/HCPCS: 36415; 80051; 82565; 84520; 85027

== ENCOUNTER 2019-01-06 06:31 | Day surgery (SDC) | payer BC ==
[2019-01-06] MEDS ORDERED: SODIUM CHLORIDE 0.9% 1,000 ML IV ONE (07:04)
[2019-01-06] MEDS: MIDAZOLAM (PF) 2 MG/2 ML VIAL IV ONE ×2 (07:47→08:38)
[2019-01-06] MEDS ORDERED: fentaNYL (PF) 50 MCG/ML 2 ML AMP IV ONE (07:47)
[2019-01-06] MEDS ORDERED: LIDOCAINE 1% INJ 10MG/ML (20 ML MDV) SQ ONE (07:49)
[2019-01-06] MEDS: VERAPAMIL SYRINGE (5 MG/10 ML) INTRAARTER ONE ×2 (07:53→08:37)
--- NOTE | 2019-01-06 08:32 | P.CARDCATH ---
Date of Procedure: 01/06/19 Preoperative Diagnosis: Exertional angina and positive stress test with history of previous stent placement Postoperative Diagnosis: Critical lesion involving the distal RCA and also significant disease involving the distal circumflex. Moderate disease in the LAD Description of Procedure: HISTORY: This is a 58-year-old gentleman with history of ischemic heart disease with a history of previous inferior wall OH and stent placement of the RCA both in the proximal and distal portions. Subsequently patient had elected to stent placement of the LAD and also circumflex. Recently patient has been having burning chest pain and a stress test showed predominantly fixed defect in the inferior wall. Because of ongoing symptoms patient is advised to have a cardiac catheterization for definitive diagnosis. CONSENT:I have discussed the risks, benefits and alternative therapies for the above-mentioned procedure and for both sedation/analgesia as well as necessary blood product administration, if indicated, as they pertain to this patient. The patient has indicated understanding and acceptance of the risks and procedures discussed. PROCEDURE: Patient was brought to the lab in a fasting state. Patient was given some IV sedation. The right wrist is infiltrated with lidocaine and right radial artery was entered using Seldinger technique. A 6-[place] catheter was left in place and selective coronary arteriography and measurement of left ventr icle end-diastolic pressure was performed. Patient tolerated the procedure well. Patient went on to have stent placement of the RCA by Dr. ASPEN Larson No immediate complications were noted and patient was transferred to [facility] in a stable condition Conscious Sedation: Versed 1mg Fentanyl 50 g Duration 19minutes HEMODYNAMICS: The aortic pressure is 130/70. Left ventricle end-diastolic pressure is about 8-10. There was no gradient across the aortic valve SELECTIVE CORONARY ARTERIOGRAPHY: LEFT MAIN: Normal length and appears to be diffusedly diseased with the probably 30% diffuse stenosis THE LEFT ANTERIOR DESCENDING CORONARY ARTERY:. This is a good caliber vessel with patent stent in the midportion. However, the vessel is diffuse disease with multiple plaques and areas of about 30-40% stenosis THE LEFT CIRCUMFLEX AND IS CORONARY ARTERY:. This is a moderate caliber vessel giving rise to moderate caliber OM branch. The stent in the OM branch is patent. The distal circumflex has diffuse disease with areas of 80-90% stenosis but the vessel is small in caliber THE RIGHT CORONARY ARTERY:. This is a dominant vessel with a patent stent in the proximal portion. There is a 95% stenosis involving the distal RCA to the bifurcation into PDA and PLV. There is a branch of the PLV that also has about 80-90% ostial stenosis LEFT VENTRICULOGRAPHY: Not performed FINAL IMPRESSION:. Critical lesion involving the distal RCA involving bifurcation which is seemed to be within the previous stent. The proximal stent in the RCA is patent. The stent in the mid LAD and also OM branch is patent. Small distal circumflex also has critical lesion but seems to be small for intervention. PLAN: Stentto the RCA being done by Dr. ASPEN Larson PROGNOSIS: Fair
[2019-01-06] MEDS ORDERED: CLOPIDOGREL 75 MG TAB PO ONE (09:01)
[2019-01-06] MEDS ORDERED: IOPAMIDOL-370 125ML BTL INJ ONE (09:02)
[2019-01-06] MEDS ORDERED: niCARdipine Syringe (1,000 mcg/10 mL) INTRACORON ONE (09:06)
[2019-01-06] MEDS ORDERED: NITROGLYCERIN 1000MCG/10ML SYRINGE INTRACORON ONE (09:08)
[2019-01-06] MEDS ORDERED: IOPAMIDOL-370 100ML BTL INJ ONE (09:13)
[2019-01-06] MEDS ORDERED: RX INFO: IV CONTRAST WAS GIVEN 1 EACH MISC MISCELLANE PRN ×2 (09:23→12:54)
[2019-01-06] MEDS ORDERED: NITROGLYCERIN SL TABS 0.4 MG TAB SUBLINGUAL PRN ×2 (09:23→09:30)
[2019-01-06] MEDS ORDERED: ATROPINE SULFATE 0.1 MG/ML 10ML SYRINGE IV PRN (09:23)
[2019-01-06] MEDS ORDERED: MAG HYDROX/AL HYDROX/SIMETH 30 ML CUP PO PRN (09:23)
[2019-01-06] MEDS ORDERED: ACETAMINOPHEN TAB 325 MG TAB PO PRN (09:35)
--- NOTE | 2019-01-06 09:53 | PTCA ---
PERCUTANEOUSTRANS CORORONARY ANGIOGRAPHY DATE OF SERVICE: 01/06/2019 PROCEDURE: PTCA and stenting of distal RCA/PLV branch in a restenotic area. PERFORMED BY: Dr. Sheryl Larson. Moderate conscious sedation time was 68 minutes. CLINICAL INFORMATION: Mr. Zaire Mckeon is a 58-year-old gentleman with a known history of CAD. Initially, he presented in May of 2017 with an acute inferior MT, underwent stenting of the distal RCA with a good result. Multiple stents were deployed. The PDA branch was jailed at that time. He was brought back for a repeat cardiac catheterization and PCI off LAD in multiple areas and also the first obtuse marginal branch was stented. He has done well since then, but has been having symptoms of unstable angina and therefore was advised a repeat cardiac catheterization by Dr. Cade who sees him in the office on a regular basis. Cardiac cath revealed that he had widely patent LAD with multiple areas of narrowing, but no significant lesion and the circumflex marginal was widely patent. The distal RCA and the PLV branch of its origin where there was a stent placed before now has a restenotic lesion of 95%. The PDA was jailed and remains jailed. He was advised intervention. This was a very tortuous vessel and technically a difficult and challenging procedure. ANESTHESIA: Moderate conscious sedation time was 68 minutes. Patient was administered Versed. Oxygen saturation, hemodynamics and EKG were monitored closely. PROCEDURE NOTE: The existing 6-Barb[place] introducer in the right radial artery was used to perform procedure. I used a KRH catheter to cannulate the right coronary artery. Initially I used a Whisper wire, with this I was able to pre-dilate the lesion. I tried to advance a 3.0 caliber stent, but I had difficulty because of the tortuosity. I then double wired it. A run-through wire was placed alongside. On multiple times, the guide catheter came out and I had to Re cannulate the vessel. With [address], a whisper and run-through, I used a run-through wire and over this, I advanced a 3.0 caliber 15 mm long Xience stent and deployed this and during the deployment, a small distal RCA branch as well as the PDA branch were both jailed again. This stent was deployed at 14 atmospheres for about 1 minute. Patient did not have much chest pain, had subtle EKG changes. Excellent angiographic result was achieved without complication. The sheath was taken out and a TR band applied as per protocol with good saturation of the fingers of the right hand. ACT was about 295. Additional 1500 units of heparin was given and then ACT was over 350. Excellent angiographic result without complication was achieved. Good hemostasis was secured. Saturation of the fingers was 97%. Results were discussed with the patient and family. A single 15 mm long 3.0 caliber Xience stent was deployed. Patient hopefully will be discharged tomorrow if he remains stable. Results were discussed with the patient and family. MMODL / IJN: [id number] /
[2019-01-06] MEDS: SODIUM CHLORIDE 0.9% 1,000 ML IV SCH ×2 (12:43→15:52)
[2019-01-06 14:49] VITALS: BMI 27.0
[2019-01-06] MEDS: METOPROLOL TARTRATE 12.5 MG TAB PO SCH (20:30)
[2019-01-06 20:56] VITALS: RESP 18
[2019-01-06] MEDS ORDERED: LISINOPRIL 5 MG TAB PO SCH (21:00)
[2019-01-06] MEDS ORDERED: ZOLPIDEM 5 MG TAB PO PRN (21:00)
[2019-01-07] MEDS: SODIUM CHLORIDE 0.9% 1,000 ML IV SCH ×2 (05:22→05:23)
[2019-01-07 06:18] LABS: Basophils # (A) 0.1 k/uL (0-0.2); Basophils % (A) 1 %; Eosinophils # (A) 0.3 k/uL (0-0.7); Eosinophils % (A) 4 %; HCT 43.4 % (39.0-53.0); HGB 14.3 gm/dL (13.0-17.5); Lymphocytes # (A) 1.6 k/uL (1.0-4.8); Lymphocytes % (A) 19 %; MCH 30.8 pg (25.0-35.0); MCV 93.2 fL (80.0-100.0); Monocytes # (A) 0.7 k/uL (0-1.0); Monocytes % (A) 8 %; Neutrophils # (A) 5.6 k/uL (1.3-7.7); Neutrophils % (A) 66 %; Platelet Count 211 k/uL (150-450); RBC 4.66 m/uL (4.30-5.90); RDW 12.2 % (11.5-15.5); WBC 8.5 k/uL (3.8-10.6)
[2019-01-07 06:38] LABS: African American GFR (CKD) >90 (>60 ml/min/1.73 sqM); Anion Gap 9 mmol/L; Blood Urea Nitrogen 12 mg/dL (9-20); Carbon Dioxide 28 mmol/L (22-30); Chloride 104 mmol/L (98-107); Glucose 98 mg/dL (74-99); Sodium 141 mmol/L (137-145)
[2019-01-07 08:07] VITALS: BP 119/76; PULSE 65; TEMP 98.2
[2019-01-07] MEDS: METOPROLOL TARTRATE 12.5 MG TAB PO SCH (08:41)
[2019-01-07] MEDS ORDERED: CLOPIDOGREL 75 MG TAB PO SCH (09:00)
[2019-01-07] MEDS ORDERED: ASPIRIN 81 MG PO SCH (09:00)
[2019-01-07] MEDS ORDERED: ISOSORBIDE MONONITRATE ER 60 MG TAB.ER.24H PO SCH (09:00)
--- NOTE | 2019-01-07 12:44 | P.PN ---
Subjective Progress Note Date: 01/07/19 Discharge note This is a 58-year-old gentleman admitted to the hospital to undergo cardiac catheterization, which revealed a critical lesion involving the distal RCA and significant disease in the distal circumflex, moderate disease in the LAD. He underwent angioplasty and stenting of the right coronary artery. Patient was seen and examined this morning, denies any chest pain and is breathing overall has been stable. Blood pressure 120/70 with a heart rate in the 60s, 97% on room air. White blood cell count 8.5, hemoglobin 14.3, platelet count 211. Sodium 141, potassium 4.0, BUN 12 and creatinine 0.7. EKG shows a normal sinus rhythm with no changes from post-PCI. Objective - Vital Signs Vital signs: Vital Signs Temp 98.2 F 01/07/19 07:40 Pulse 65 01/07/19 07:42 Resp 18 01/07/19 12:18 BP 119/76 01/07/19 07:40 Pulse Ox 97 01/07/19 07:40 Intake & Output 01/06/19 01/07/19 01/07/19 18:59 06:59 18:59 Intake Total 930 480 Output Total 400 500 Balance 530 -20 Weight 87.9 kg 88.5 kg Intake: IV 450 Oral 480 480 Output: Urine 400 500 Other: Voiding Method Toilet Toilet # Voids 1 - Exam PHYSICAL EXAMINATION: GENERAL: 89-year-old gentleman in no acute distress at the time of my examination HEENT: Head is atraumatic, normocephalic. Pupils equal, round. Sclera anicteric. Conjunctiva are clear. Mucous membranes of the mouth are moist. Neck is supple. There is no elevated jugular venous pressure. No carotid bruit is heard. HEART EXAMINATION: Heart S1, S2 normal. No murmur or gallop heard. CHEST EXAMINATION: Lungs are clear to auscultation and precussion. No chest wall tenderness is noted on palpation or with deep breathing. ABDOMEN: Soft, nontender. Bowel sounds are heard. No organomegaly noted. EXTREMITIES: 2+ peripheral pulses with no evidence of peripheral edema and no calf tenderness noted. Right radial site clean and dry, good distal pulse. NEUROLOGIC patient is awake, alert and oriented 3 . . - Labs CBC & Chem 7: 01/07/19 05:36 01/07/19 05:36 Assessment and Plan Plan: Assessment and plan #1 status post angioplasty and stenting of the right coronary artery #2 hypertension #3 hyperlipidemia #4 prior history of coronary artery disease #5 hyperlipidemia Plan Patient will be discharged home today, follow-up appointment with Dr. Cade in the office in one week. Discharge medications include aspirin 81 mg daily, Lipitor 80 mg daily, Plavix 75 mg daily, Imdur 60 mg daily, Zestril 5 mg daily, metoprolol 12-1/2 mg one tablet by mouth twice a day, and sublingual nitroglycerin as needed for chest pain. DNP note has been reviewed, I agree with a documented findings and plan of care. Patient was seen and examined.
[2019-01-07] MEDS ORDERED: ATORVASTATIN 80 MG TAB PO SCH (21:00)
== END 2019-01-07 12:58 | disposition home or self-care (01) ==
LOC: CATHCVL 06:31 → 3SCARD 11:49 → CATHCVL 01-07 12:58
PROVIDERS: ATTEND Internal Medicine Cardiovascular Disease
DX: I25.110 Atherosclerotic heart disease of native coronary artery with unstable angina pectoris (principal); I10 Essential (primary) hypertension; Z72.0 Tobacco use; T82.855A Stenosis of coronary artery stent, initial encounter; E78.5 Hyperlipidemia, unspecified; I25.2 Old myocardial infarction; Z95.5 Presence of coronary angioplasty implant and graft; Z79.02 Long term (current) use of antithrombotics/antiplatelets; Z79.82 Long term (current) use of aspirin; Z79.899 Other long term (current) drug therapy
CPT/HCPCS: 93458; 85347; 80048; 85025; C9600; C1769 ×2; C1887; C1725; C1894; C1874; J2001; J3010; J1644; Q9967 ×2; J2250

== ENCOUNTER 2019-05-23 11:55 | Emergency (ER) | payer OTHER, BC ==
[2019-05-23 12:01] VITALS: TEMP 97.7
[2019-05-23] MEDS ORDERED: SODIUM CHLORIDE 0.9% 1,000 ML IV STA ×2 (12:34)
[2019-05-23] MEDS ORDERED: ORPHENADRINE 30 MG/ML 2 ML VIAL IVP STA (12:36)
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
[2019-05-23 13:16] LABS: Basophils % (A) 1 %; Eosinophils # (A) 0.3 k/uL (0-0.7); Eosinophils % (A) 5 %; HCT 44.3 % (39.0-53.0); HGB 14.8 gm/dL (13.0-17.5); Lymphocytes # (A) 1.3 k/uL (1.0-4.8); Lymphocytes % (A) 22 %; MCH 30.8 pg (25.0-35.0); MCHC 33.5 g/dL (31.0-37.0); MCV 91.9 fL (80.0-100.0); Mean Platelet Volume 7.5; Monocytes # (A) 0.4 k/uL (0-1.0); Monocytes % (A) 7 %; Neutrophils # (A) 3.8 k/uL (1.3-7.7); Neutrophils % (A) 63 %; Platelet Count 222 k/uL (150-450); RBC 4.82 m/uL (4.30-5.90); RDW 12.2 % (11.5-15.5); WBC 6.1 k/uL (3.8-10.6)
[2019-05-23 13:25] LABS: ALT 48 U/L (4-49); AST 32 U/L (17-59); African American GFR (CKD) >90 (>60 ml/min/1.73 sqM); Albumin 4.4 g/dL (3.5-5.0); Alkaline Phosphatase 77 U/L (38-126); Anion Gap 10 mmol/L; Blood Urea Nitrogen 20 mg/dL (9-20); Calcium 9.5 mg/dL (8.4-10.2); Carbon Dioxide 23 mmol/L (22-30); Chloride 106 mmol/L (98-107); Glucose 125 mg/dL (74-99); Non-African American GFR(CKD) >90 (>60 ml/min/1.73 sqM); Potassium 4.6 mmol/L (3.5-5.1); Sodium 139 mmol/L (137-145); Total Bilirubin 1.5 mg/dL (0.2-1.3); Total Protein 7.4 g/dL (6.3-8.2)
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
[2019-05-23 13:35] LABS: INR 0.9 (<1.2); Prothrombin Time 9.8 sec (9.0-12.0)
[2019-05-23 13:39] LABS: Partial Thromboplastin Time 21.5 sec (22.0-30.0)
--- NOTE | 2019-05-23 13:58 | XR ---
EXAMINATION TYPE: XR pelvis AP view DATE OF EXAM: 05/23/2019 CLINICAL HISTORY: pain TECHNIQUE: Single view the pelvis is submitted. FINDINGS: No evidence for fracture, dislocation or bony lesion. Joint spaces are well-preserved. S I joints appear symmetric. IMPRESSION: 1. No acute fracture or dislocation seen. ICD 10 NO FRACTURE, INITIAL EVALUATION
--- NOTE | 2019-05-23 13:59 | XR ---
EXAMINATION TYPE: XR thoracic spine 2V DATE OF EXAM: 05/23/2019 CLINICAL HISTORY: pain TECHNIQUE: Frontal, lateral, and swimmer's view of thoracic spine are obtained. COMPARISON: None. FINDINGS: Thoracic spine show satisfactory alignment without evidence of acute fracture or dislocatio n. Vertebral body heights are preserved. Moderate multilevel degenerative disc space narrowing and s pondylosis. Visualized ribs are unremarkable. IMPRESSION: No acute fracture or dislocation is seen in the thoracic spine. ICD 10 NO FRACTURE, INIT IAL EVALUATION
--- NOTE | 2019-05-23 14:00 | XR ---
EXAMINATION TYPE: XR lumbar spine 2 or 3V DATE OF EXAM: 05/23/2019 CLINICAL HISTORY: pain TECHNIQUE: Three views of the lumbar spine are submitted. COMPARISON: None. FINDINGS: There are 5 lumbar type vertebral bodies identified. The lumbar spine shows satisfactory alignment w ithout evidence of acute fracture or dislocation. Vertebral body heights are within normal limits. Mild degenerative disc space narrowing and spondylosis noted. The overlying soft tissue appears unre markable. IMPRESSION: No acute fracture or dislocation is seen in the lumbar spine. ICD 10 NO FRACTURE, INITIAL EVALUATION
--- NOTE | 2019-05-23 14:02 | XR ---
EXAMINATION TYPE: XR chest 1V DATE OF EXAM: 05/23/2019 HISTORY: Shortness of breath. COMPARISON: 08/23/2017 TECHNIQUE: Single view of the chest is submitted. FINDINGS: Demonstrated are scattered senescent parenchymal change. There is no evidence for focal infiltrate. The heart is stable. Hilar and mediastinal structures are within normal limits. Degenerative changes are seen of the dorsal spine. IMPRESSION: 1. Chronic changes without evidence for acute pulmonary disease.
[2019-05-23] MEDS ORDERED: KETOROLAC 30 MG/ML 1 ML VIAL IVP STA (14:27)
[2019-05-23 15:03] VITALS: BP 117/81; PULSE 62; RESP 18
[2019-05-23] MEDS ORDERED: ACET/COD 300 MG/30 MG STARTER PACK 6 TAB BTL PO STA (15:10)
[2019-05-23 15:17] LABS: Appearance,Urine Clear (Clear); Bilirubin,Urine Negative (Negative); Blood,Urine Negative (Negative); Color,Urine Yellow; Glucose,Urine (UA) Negative (Negative); Ketones,Urine Negative (Negative); Leukocyte Esterase,Urine Negative (Negative); Nitrite,Urine Negative (Negative); PH, Urine 5.5 (5.0-8.0); Protein,Urine Negative (Negative); Specific Gravity,Urine 1.022 (1.001-1.035); Urobilinogen,Urine <2.0 mg/dL (<2.0)
== END 2019-05-23 15:25 | disposition home or self-care (01) ==
LOC: EC 11:55
DX: M54.5 Low back pain (principal); M54.2 Cervicalgia; M54.6 Pain in thoracic spine; R07.9 Chest pain, unspecified; I25.2 Old myocardial infarction; Z87.891 Personal history of nicotine dependence; Z79.01 Long term (current) use of anticoagulants; Z95.5 Presence of coronary angioplasty implant and graft; Z82.49 Family history of ischemic heart disease and other diseases of the circulatory system; V49.40XA Driver injured in collision with unspecified motor vehicles in traffic accident, initial encounter; Y92.410 Unspecified street and highway as the place of occurrence of the external cause
CPT/HCPCS: 99285; 96374; 96375; 96361 ×2; 36415; 93005; 80053; 84484; 85025; 85610; 85730; 81003; 72070; 72100; 72170; 71045; 72125; 70450; J2360; J1885

== ENCOUNTER 2019-09-03 20:34 | Observation (INO) | payer BC, OTHER ==
[2019-09-03] MEDS ORDERED: ASPIRIN 81 MG PO STA ×2 (21:00→21:03)
[2019-09-03] MEDS: NITROGLYCERIN SL TABS 0.4 MG TAB SUBLINGUAL STA ×3 (21:06→21:18)
--- NOTE | 2019-09-03 21:20 | ED ---
Chest Pain HPI - General Chief Complaint: Chest Pain Stated Complaint: Chest pain Time Seen by Provider: 09/03/19 20:53 Source: patient, family, RN notes reviewed, old records reviewed Mode of arrival: wheelchair Limitations: no limitations - History of Present Illness Initial Comments: This is a 58-year-old male with a history of NE in the past with stents who presents with complains the onset of retrosternal chest discomfort today about 2 PM he was their 1204 and recurred around 7 PM tonight. Again as bad as 8/10 severity he did take his evening medications he did not take a nitroglycerin. He did take 81 mg aspirin this morning by my initial exam the pain and improved to 6/10 in severity no shortness of breath no fevers chills nausea or other symptomatology reported. The pain did later increased back up to 8/10. No other modifying factors he did take some Xanax thinking he was anxious no relief. MD Complaint: chest pain - Related Data Previous Rx's Medication Instructions Recorded Aspirin 81 mg PO DAILY #30 chew 06/16/17 Atorvastatin [Lipitor] 80 mg PO HS #30 tab 06/16/17 Clopidogrel [Plavix] 75 mg PO DAILY #30 tab 06/16/17 Lisinopril [Zestril] 5 mg PO HS #30 tab 06/16/17 Nitroglycerin Sl Tabs [Nitrostat] 0.4 mg SUBLINGUAL Q5M PRN #25 tab 06/16/17 Metoprolol Tartrate [Lopressor] 12.5 mg PO BID tab 06/30/17 Isosorbide Mononitrate ER [Imdur] 60 mg PO DAILY #30 tab.er.24h 08/24/17 Cyclobenzaprine [Flexeril] 10 mg PO TID #12 tab 05/23/19 Ibuprofen [Motrin] 600 mg PO Q8HR PRN #20 tab 05/23/19 Allergies Allergy/AdvReac Type Severity Reaction Status Date / Time No Known Allergies Allergy Verified 01/06/19 06:59 Review of Systems ROS Statement: Those systems with pertinent positive or pertinent negative responses have been documented in the HPI. ROS Other: All systems not noted in ROS Statement are negative. EKG Findings - EKG Results: EKG: interpreted by [facility], sinus rhythm (EKG showed normal sinus rhythm 100 UT interval 174 QRS duration 80 QT since QTC 344/443 evidence of old inferior changes no acute ST-T wave changes seen this is compared with EKG dated 05/23/19 which from most part shows similar configuration though it does appear improved since then) Past Medical History Past Medical History: Myocardial Infarction ([place]) Additional Past Medical History / Comment(s): stent times three to RCA, STATES RT GROIN STILL BRUISED Last Myocardial Infarction Date:: 06/25/2017 History of Any Multi-Drug Resistant Organisms: None Reported Past Surgical History: No Surgical Hx Reported, Heart Catheterization With Stent Additional Past Surgical History / Comment(s): stent times 3 to RCA, 2 stents 06/29/17 (1 stent LAD, 1 stent OM) Past Anesthesia/Blood Transfusion Reactions: No Reported Reaction Additional Past Anesthesia/Blood Transfusion Reaction / Comment(s): has never had general anesthesia Date of Last Stent Placement:: 06/29/17 Past Psychological History: No Psychological Hx Reported Smoking Status: Current some day smoker Past Alcohol Use History: Occasional Past Drug Use History: None Reported - Past Family History Father Family Medical History: Coronary Artery Disease (CAD) Additional Family Medical History / Comment(s): Father had his first NE in his 40's. He had CABG twice. He of a NE at the age of 67yrs. Mother Family Medical History: Coronary Artery Disease (CAD) Additional Family Medical History / Comment(s): Mother had CABG. She of a NE at the age of 67yrs. General Exam - General Exam Comments Initial Comments: This is a well-developed well-nourished awake alert oriented 3 male Limitations: no limitations General appearance: alert, anxious Head exam: Present: atraumatic, normocephalic, normal inspection Eye exam: Present: normal appearance, PERRL, EOMI. Absent: scleral icterus, conjunctival injection, periorbital swelling ENT exam: Present: normal exam, mucous membranes moist Neck exam: Present: normal inspection. Absent: tenderness, meningismus, lymphadenopathy Respiratory exam: Present: normal lung sounds bilaterally. Absent: respiratory distress, wheezes, rales, rhonchi, stridor Cardiovascular Exam: Present: regular rate, normal rhythm, normal heart sounds. Absent: systolic murmur, diastolic murmur, rubs, gallop, clicks GI/Abdominal exam: Present: soft, normal bowel sounds. Absent: distended, tenderness, guarding, rebound, rigid Extremities exam: Present: normal inspection, full ROM, normal capillary refill. Absent: tenderness, pedal edema, joint swelling, calf tenderness Back exam: Present: normal inspection Neurological exam: Present: alert, oriented X3, CN II-XII intact Psychiatric exam: Present: normal affect, normal mood Skin exam: Present: warm, dry, intact, normal color. Absent: rash Course Vital Signs 09/03/19 09/03/19 09/03/19 20:39 21:05 21:10 Temperature 98.0 F Pulse Rate 102 H 100 103 H Respiratory 18 18 18 Rate Blood Pressure 131/86 130/95 136/94 O2 Sat by Pulse 97 Oximetry 09/03/19 09/03/19 21:18 21:23 Temperature Pulse Rate 98 101 H Respiratory 16 16 Rate Blood Pressure 122/90 125/91 O2 Sat by Pulse Oximetry - Reevaluation(s) Reevaluation #1: 09/03/19 22:47 Patient was case some relief after nitro he also had a recurrence of chest pain he received a GI cocktail which seemed to help also. Reevaluation #2: 09/03/19 22:49 Repeat EKG was done shows a normal sinus rhythm of 101. Interval 170 QRS duration 82 QT since QTC 342/443 no change except for the rate from the initial EKG. Chest Pain MDM - MDM I did review the imaging and report no acute findings. I did discuss findings with the patient has . The presentation is consistent with unstable angina although the patient he really for the GI cocktail and does have a history of apparent GERD. He will be admitted the case was discussed with Dr. fenton. Critical Care Time Critical Care Time: Yes Critical Care Time: 35 minutes of critical care time which includes initial presentation with history physical labs x-rays multiple reevaluation the patient responsive therapy review of old charting discussed with the patient and his regarding findings discussion with the admitting physician admission orders documentation the above Disposition Clinical Impression: Chest pain, Unstable angina pectoris, GERD (gastroesophageal reflux disease) Disposition: ADMITTED IP TO THIS [facility] Condition: Fair Referrals: Vinod Bran MD [Primary Care Provider] - 1-2 days
[2019-09-03] MEDS ORDERED: NITROGLYCERIN OINT 1 INCH/GM PACKET TOPICAL STA (21:23)
[2019-09-03] MEDS ORDERED: HEPARIN SODIUM,PORCINE 5,000 UNIT/ML 1 ML VIAL IV ONE (21:24)
[2019-09-03] MEDS ORDERED: HEPARIN SODIUM,PORCINE 5,000 UNIT/ML 1 ML VIAL IV PRN (21:24)
[2019-09-03] MEDS ORDERED: HEPARIN SOD,PORK IN 0.45% NACL 25,000 UNIT in 0.45% NACL 1 250ML.BAG IV SCH (21:30)
[2019-09-03 21:33] LABS: Basophils % (A) 0 %; Eosinophils # (A) 0.2 k/uL (0-0.7); Eosinophils % (A) 3 %; HGB 14.4 gm/dL (13.0-17.5); Lymphocytes # (A) 1.5 k/uL (1.0-4.8); Lymphocytes % (A) 16 %; MCH 30.6 pg (25.0-35.0); MCHC 32.9 g/dL (31.0-37.0); MCV 93.2 fL (80.0-100.0); Mean Platelet Volume 7.6; Monocytes # (A) 0.8 k/uL (0-1.0); Monocytes % (A) 9 %; Neutrophils # (A) 6.3 k/uL (1.3-7.7); Neutrophils % (A) 69 %; Platelet Count 225 k/uL (150-450); RBC 4.72 m/uL (4.30-5.90); RDW 12.4 % (11.5-15.5); WBC 9.1 k/uL (3.8-10.6)
[2019-09-03 21:44] LABS: ALT 53 U/L (4-49); AST 38 U/L (17-59); African American GFR (CKD) >90 (>60 ml/min/1.73 sqM); Albumin 4.5 g/dL (3.5-5.0); Alkaline Phosphatase 91 U/L (38-126); Anion Gap 11 mmol/L; Blood Urea Nitrogen 17 mg/dL (9-20); Calcium 9.7 mg/dL (8.4-10.2); Carbon Dioxide 22 mmol/L (22-30); Chloride 104 mmol/L (98-107); Creatine Kinase 205 U/L (55-170); Glucose 94 mg/dL (74-99); Magnesium 1.9 mg/dL (1.6-2.3); Non-African American GFR(CKD) >90 (>60 ml/min/1.73 sqM); Potassium 3.8 mmol/L (3.5-5.1); Sodium 137 mmol/L (137-145); Total Bilirubin 1.9 mg/dL (0.2-1.3); Total Protein 7.4 g/dL (6.3-8.2)
--- NOTE | 2019-09-03 21:52 | XR ---
EXAMINATION TYPE: XR chest 2V DATE OF EXAM: 09/03/2019 COMPARISON: 05/23/2019 HISTORY: Chest pain TECHNIQUE: FINDINGS: Heart and mediastinum are normal. Lungs are clear. Diaphragm is normal. Bony thorax is inta ct. There are chest leads. IMPRESSION: No active cardiopulmonary disease. Normal heart. No change.
[2019-09-03] MEDS ORDERED: MAG HYDROX/AL HYDROX/SIMETH 30 ML, HYOSCYAMINE ELIXIR 10 ML, LIDOCAINE VISCOUS 2% 10 ML PO STA ×3 (22:10)
[2019-09-03] MEDS ORDERED: NITROGLYCERIN SL TABS 0.4 MG TAB SUBLINGUAL PRN (23:05)
[2019-09-03] MEDS ORDERED: MORPHINE SULFATE 4 MG/ML SYRINGE IV PRN (23:05)
[2019-09-04 00:15] VITALS: RESP 18
[2019-09-04 05:10] LABS: Cholesterol 109 mg/dL (<200); HDL Cholesterol 31 mg/dL (40-60); LDL Cholesterol,Calculated 54 mg/dL (0-99); Triglycerides 121 mg/dL (<150)
[2019-09-04] MEDS ORDERED: ASPIRIN 81 MG PO SCH (09:00)
[2019-09-04] MEDS ORDERED: METOPROLOL TARTRATE 12.5 MG TAB PO SCH (09:00)
[2019-09-04] MEDS ORDERED: ASPIRIN 325 MG TAB PO SCH (09:00)
[2019-09-04] MEDS ORDERED: PANTOPRAZOLE 40 MG/10 ML VIAL IVP SCH (09:00)
[2019-09-04] MEDS ORDERED: ISOSORBIDE MONONITRATE ER 60 MG TAB.ER.24H PO SCH (09:00)
[2019-09-04] MEDS ORDERED: CLOPIDOGREL 75 MG TAB PO SCH (09:00)
--- NOTE | 2019-09-04 10:05 | P.CRDCN ---
History of Present Illness Consult date: 09/04/19 Consult reason: chest pain History of present illness: This is a 58-year-old male patient of Dr. Olson will probably with past medical history of coronary artery disease, hypertension, hyperlipidemia. History of ischemic heart disease with previous stent placement of the RCA, LAD and circumflex. Patient recently underwent heart catheterization in March 2019 that revealed a critical lesion involving the distal RCA involving bi furcation which seem to be within the previous stent. The proximal stent in the RCA is patent. Stent in the mid LAD and also OM branch patent. Small distal circumflex has critical lesion which seems to be small for intervention. Patient then underwent PTCA and stenting of the distal RCA/PLV branch and a restenotic area by Dr. ASPEN Larson. The patient has been doing well since that time until yesterday. He states he was doing a lot of yard work did not have any chest pain at the time but then developed a midsternal chest pain that was a burning type. He states he took omeprazole and Tums with minimal improvement. But the pain became stronger and about 8:30 it was in the midsternal area. He had no radiation, known nausea. He came into [facility] emergency center for evaluation. He received 3 aspirin, 3 nitroglycerin and Nitropaste and chest pain was much improved down to #1. He feels that this pain is different than his previous stents. Troponins negative on 2 draws, BNP 104, EKG is sinus rhythm with no acute changes. Patient was started on a heparin drip. Patient has been given the option of a stress test or heart catheterization on Thursday but at this time patient would rather go home and contact the office if he has any further difficulties. Review Of Systems: Constitutional: No fever, no chills, no night sweats. No weight change. No weakness, fatigue or lethargy. No daytime sleepiness. EENT: No headache. No blurred vision or double vision, no loss of vision. No loss of Hearing, no ringing in the ears, no dizziness. No nasal drainage or congestion. No epistaxis. No sore throat. Lungs: No shortness of breath, cough, no sputum production. No wheezing. Cardiovascular: Reports chest pain, no lower extremity edema. No palpitations. No paroxysmal nocturnal dyspnea. No orthopnea. No lightheadedness or dizziness. No syncopal episodes. Abdominal: No abdominal pain. No nausea, vomiting. No diarrhea. No constipation. No bloody or tarry stools. No loss of appetite. Genitourinary: No dysuria, increased frequency, urgency. No urinary retention. Musculoskeletal: No myalgias. No muscle weakness, no gait dysfunction, no frequent falls. No back pain. No neck pain. Integumentary: No wounds, no lesions. No rash or pruritus. No unusual bruising. No change in hair or nails. Neurologic: No aphasia. No facial droop. No change in mentation. No head injury. No headache. No paralysis. No paresthesia. Psychiatric: No depression. No anxiety. No mood swings. Endocrine: No abnormal blood sugars. No weight change. No excessive sweating or thirst. No cold intolerance. No weight change. Physical examination: Gen: This is a 58-year-old male. Patient is resting but appears comfortable and in no acute distress. VS: Afebrile, heart rate 60, blood pressure 110/62, pulse ox 97% on 2 L nasal cannula. HEENT: Head is atraumatic, normocephalic. Pupils equal, round. Sclerae is anicteric. NECK: Supple. No JVD. No lymphadenopathy. No thyromegaly. LUNGS: Clear to auscultation. No wheezes or rhonchi. No intercostal retractions. HEART: Regular rate and rhythm. No murmur. ABDOMEN: Soft. Bowel sounds are present. No masses. No tenderness. EXTREMITIES: No pedal edema. No calf tenderness. NEUROLOGICAL: Patient is awake, alert and oriented x3. Cranial nerves 2 through 12 are grossly intact. Assessment: Chest pain with negative troponins on 2 draws History of coronary artery disease Hypertension Hyperlipidemia Plan: If third troponin is negative, patient is cleared by cardiology for discharge home Discontinue heparin drip Follow-up with Dr. Cade this week Thank you kindly for this consultation Nurse practitioner note has been reviewed, I agree with documented findings and plan of care. Patient was seen and examined. Past Medical History Past Medical History: Myocardial Infarction ([place]) Additional Past Medical History / Comment(s): stent times three to RCA Last Myocardial Infarction Date:: 06/25/2017 History of Any Multi-Drug Resistant Organisms: None Reported Past Surgical History: No Surgical Hx Reported, Heart Catheterization With Stent Additional Past Surgical History / Comment(s): stent times 3 to RCA, 2 stents (1 stent LAD, 1 stent OM) Past Anesthesia/Blood Transfusion Reactions: No Reported Reaction Additional Past Anesthesia/Blood Transfusion Reaction / Comment(s): has never had general anesthesia Date of Last Stent Placement:: 06/29/17 Past Psychological History: No Psychological Hx Reported Smoking Status: Former smoker Past Alcohol Use History: Occasional Additional Past Alcohol Use History / Comment(s): smoked less than 1/2ppd from teens until 2013 Past Drug Use History: None Reported - Past Family History Father Family Medical History: Coronary Artery Disease (CAD) Additional Family Medical History / Comment(s): Father had his first WI in his 40's. He had CABG twice. He of a WI at the age of 67yrs. Mother Family Medical History: Coronary Artery Disease (CAD) Additional Family Medical History / Comment(s): Mother had CABG. She of a WI at the age of 67yrs. Medications and Allergies Home Medications Medication Instructions Recorded Confirmed Type Aspirin 81 mg PO DAILY #30 chew 06/16/17 01/06/19 Rx Atorvastatin [Lipitor] 80 mg PO HS #30 tab 06/16/17 01/06/19 Rx Clopidogrel [Plavix] 75 mg PO DAILY #30 tab 06/16/17 01/06/19 Rx Lisinopril [Zestril] 5 mg PO HS #30 tab 06/16/17 01/06/19 Rx Nitroglycerin Sl Tabs [Nitrostat] 0.4 mg SUBLINGUAL Q5M PRN #25 tab 06/16/17 01/03/19 Rx Metoprolol Tartrate [Lopressor] 12.5 mg PO BID tab 06/30/17 01/06/19 Rx Isosorbide Mononitrate ER [Imdur] 60 mg PO DAILY #30 tab.er.24h 08/24/17 01/06/19 Rx Cyclobenzaprine [Flexeril] 10 mg PO TID #12 tab 05/23/19 Rx Ibuprofen [Motrin] 600 mg PO Q8HR PRN #20 tab 05/23/19 Rx Pantoprazole Sodium [Protonix] 40 mg PO DAILY #30 09/04/19 Rx Allergies Allergy/AdvReac Type Severity Reaction Status Date / Time No Known Allergies Allergy Verified 01/06/19 06:59 Physical Exam Vitals: Vital Signs Temp Pulse Pulse Resp BP BP Pulse Ox 09/04/19 04:00 98.2 F 60 18 110/62 97 09/04/19 00:20 60 18 09/04/19 00:07 98.1 F 70 18 133/79 98 09/03/19 23:01 98.0 F 75 16 117/76 09/03/19 21:23 101 H 16 125/91 09/03/19 21:18 98 16 122/90 09/03/19 21:10 103 H 110 H 18 136/94 09/03/19 21:05 100 18 130/95 09/03/19 20:39 98.0 F 102 H 18 131/86 97 Intake and Output 09/03/19 09/04/19 09/04/19 22:59 06:59 14:59 Intake Total 61.537 Balance 61.537 Intake: Intake, IV Titration 61.537 Amount Heparin Sod,Pork in 0.45% 61.537 NaCl 25,000 unit In 0.45 % NaCl 1 250ml.bag @ 11 UNITS/KG/HR 9.979 mls/hr IV .Q24H [facility] Rx#: [id number] Other: Voiding Method Toilet Weight 90.718 kg 92.5 kg Results 09/03/19 21:10 09/03/19 21:10 Cardiac Enzymes 09/03/19 09/03/19 09/04/19 Range/Units 21:10 21:10 03:53 AST 38 (17-59) U/L Troponin I <0.012 <0.012 (0.000-0.034) ng/mL Coagulation 09/03/19 09/04/19 Range/Units 21:10 03:53 PT 10.0 (9.0-12.0) sec APTT 22.0 38.1 H (22.0-30.0) sec Lipids 09/04/19 Range/Units 03:53 Triglycerides 121 (<150) mg/dL Cholesterol 109 (<200) mg/dL HDL Cholesterol 31 L (40-60) mg/dL CBC 09/03/19 Range/Units 21:10 WBC 9.1 (3.8-10.6) k/uL RBC 4.72 (4.30-5.90) m/uL Hgb 14.4 (13.0-17.5) gm/dL Hct 44.0 (39.0-53.0) % Plt Count 225 (150-450) k/uL Comprehensive Metabolic Panel 09/03/19 Range/Units 21:10 Sodium 137 (137-145) mmol/L Potassium 3.8 (3.5-5.1) mmol/L Chloride 104 (98-107) mmol/L Carbon Dioxide 22 (22-30) mmol/L BUN 17 (9-20) mg/dL Creatinine 0.69 (0.66-1.25) mg/dL Glucose 94 (74-99) mg/dL Calcium 9.7 (8.4-10.2) mg/dL AST 38 (17-59) U/L ALT 53 H (4-49) U/L Alkaline Phosphatase 91 (38-126) U/L Total Protein 7.4 (6.3-8.2) g/dL Albumin 4.5 (3.5-5.0) g/dL Current Medications Generic Name Dose Route Start Last Admin Trade Name Freq PRN Reason Stop Dose Admin Aspirin 325 mg 09/04/19 09:00 Aspirin PO DAILY [facility] Atorvastatin Calcium 80 mg 09/04/19 21:00 Lipitor PO HS [facility] Clopidogrel Bisulfate 75 mg 09/04/19 09:00 Plavix PO DAILY [facility] Heparin Sodium (Porcine) 0 unit 09/03/19 21:24 Heparin IV PER PROTOCOL PRN Low PTT Protocol Heparin Sodium/Sodium Chloride 250 mls @ 9.979 mls/hr 09/03/19 21:30 09/04/19 04:34 25,000 unit/ Sodium Chloride IV 13 units/kg/hr .Q24H [facility] 11.793 mls/hr Titration Protocol 11 UNITS/KG/HR Isosorbide Mononitrate 60 mg 09/04/19 09:00 Imdur PO DAILY [facility] Lisinopril 5 mg 09/04/19 21:00 Zestril PO HS [facility] Metoprolol Tartrate 12.5 mg 09/04/19 09:00 Lopressor PO BID [facility] Morphine Sulfate 4 mg 09/03/19 23:05 Morphine Sulfate (Inj) IV Q5M PRN Chest Pain Nitroglycerin 0.4 mg 09/03/19 23:05 Nitrostat SUBLINGUAL Q5M PRN Chest Pain Pantoprazole Sodium 40 mg 09/04/19 09:00 Protonix IVP BID [facility] Intake and Output 09/03/19 09/04/19 09/04/19 22:59 06:59 14:59 Intake Total 61.537 Balance 61.537 Intake: Intake, IV Titration 61.537 Amount Heparin Sod,Pork in 0.45% 61.537 NaCl 25,000 unit In 0.45 % NaCl 1 250ml.bag @ 11 UNITS/KG/HR 9.979 mls/hr IV .Q24H [facility] Rx#: [id number] Other: Voiding Method Toilet Weight 90.718 kg 92.5 kg 09/03/19 21:10 09/03/19 21:10
[2019-09-04 11:09] LABS: Basophils % (A) 0 %; Eosinophils # (A) 0.4 k/uL (0-0.7); Eosinophils % (A) 7 %; HCT 40.5 % (39.0-53.0); HGB 13.2 gm/dL (13.0-17.5); Lymphocytes # (A) 1.2 k/uL (1.0-4.8); Lymphocytes % (A) 21 %; MCH 30.7 pg (25.0-35.0); MCHC 32.6 g/dL (31.0-37.0); MCV 94.1 fL (80.0-100.0); Monocytes # (A) 0.5 k/uL (0-1.0); Monocytes % (A) 9 %; Neutrophils # (A) 3.2 k/uL (1.3-7.7); Neutrophils % (A) 59 %; Platelet Count 184 k/uL (150-450); RBC 4.31 m/uL (4.30-5.90); RDW 12.7 % (11.5-15.5); WBC 5.4 k/uL (3.8-10.6)
--- NOTE | 2019-09-04 11:56 | P.HPIM ---
History of Present Illness Please consider this note as combined H&P and discharge summary Diagnoses: Chest pain, resolved Gastroesophageal reflux disease Nicotine dependence History of coronary artery disease status post stent placement in the RCA Hospital course This is a pleasant 58 years old male with past medical history of coronary artery disease status post stent placement to his right coronary artery, he is current smoker less than half pack per day as per records however when I asked the patient he denies smoking to me. Patient states that he had 2 bouts of burning chest pain yesterday about 10/10 in severity first one subsided after he took omeprazole, however at 7 PM he had a second round of severe central chest pain felt like burning nonradiating with no associated nausea vomiting, no shortness of breath, no dizziness or palpitation, no change in urine or bowel habits and no fever. His daughter and compression from tumor emergency room where he got 3 baby aspirin, 3 nitro pills and Nitropaste besides the GI cocktail and heparin drip and his chest pain subsided. This morning his chest pain-free, no other symptoms. 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 Cade home he sees in the office and he offered him cardiac cath or stress test but he refused that and he chose the third choice of going home on follow-up with dr. Cade in one week. Patient history: 911 on come to emergency room if he has another pain or other symptoms and he agrees On admission vitals are stable, labs including CBC, INR, BMP and liver enzymes were unremarkable. troponin is negative with less than 0.012. Chest x-ray: No acute process. EKG sinus tachycardia at 101 with T wave inversion in the inferior leads III and aVF, QTC is 443 History the emergency room patient was started on aspirin 324, is also on Plavix. Patient was started on heparin drip, however it wasn't stopped Problems and management plan were discussed with the patient and he verbalized understanding and acceptance Patient was found stable and can be discharged home however he needs follow-up as an outpatient. Patient was instructed to follow up with PCP within one week and patient agrees Review of systems CONSTITUTIONAL: No fever, no malaise, no fatigue. HEENT: No recent visual problems or hearing problems. Denied any sore throat. CARDIOVASCULAR: No orthopnea, PND, no palpitations, no syncope. PULMONARY: No shortness of breath, no cough, no hemoptysis. GASTROINTESTINAL: No diarrhea, no nausea, no vomiting, no abdominal pain. Normoactive bowel sounds. NEUROLOGICAL: No headaches, no weakness, no numbness. HEMATOLOGICAL: Denies any bleeding or petechiae. GENITOURINARY: Denies any burning micturition, frequency, or urgency. MUSCULOSKELETAL/RHEUMATOLOGICAL: Denies any joint pain, swelling, or any muscle pain. ENDOCRINE: Denies any polyuria or polydipsia. GENERAL: The patient is alert and oriented x3, not in any acute distress. Well developed, well nourished. HEENT: Pupils are round and equally reacting to light. EOMI. No scleral icterus. No conjunctival pallor. Normocephalic, atraumatic. No pharyngeal erythema. No thyromegaly. CARDIOVASCULAR: S1 and S2 present. No murmurs, rubs, or gallops. PULMONARY: Chest is clear to auscultation, no wheezing or crackles. ABDOMEN: Soft, nontender, nondistended, normoactive bowel sounds. No palpable organomegaly. MUSCULOSKELETAL: No joint swelling or deformity. EXTREMITIES: No cyanosis, clubbing, or pedal edema. NEUROLOGICAL: Gross neurological examination did not reveal any focal deficits. SKIN: No rashes. No petechiae Time spent more than 35 minutes Past Medical History Past Medical History: Myocardial Infarction ([place]) Additional Past Medical History / Comment(s): stent times three to RCA, STATES RT GROIN STILL BRUISED Last Myocardial Infarction Date:: 06/25/2017 History of Any Multi-Drug Resistant Organisms: None Reported Past Surgical History: No Surgical Hx Reported, Heart Catheterization With Stent Additional Past Surgical History / Comment(s): stent times 3 to RCA, 2 stents 06/29/17 (1 stent LAD, 1 stent OM) Past Anesthesia/Blood Transfusion Reactions: No Reported Reaction Additional Past Anesthesia/Blood Transfusion Reaction / Comment(s): has never had general anesthesia Date of Last Stent Placement:: 06/29/17 Past Psychological History: No Psychological Hx Reported Smoking Status: Current some day smoker Past Alcohol Use History: Occasional Past Drug Use History: None Reported - Past Family History Father Family Medical History: Coronary Artery Disease (CAD) Additional Family Medical History / Comment(s): Father had his first HI in his 40's. He had CABG twice. He of a HI at the age of 67yrs. Mother Family Medical History: Coronary Artery Disease (CAD) Additional Family Medical History / Comment(s): Mother had CABG. She of a HI at the age of 67yrs. Medications and Allergies Home Medications Medication Instructions Recorded Confirmed Type Aspirin 81 mg PO DAILY #30 chew 06/16/17 01/06/19 Rx Atorvastatin [Lipitor] 80 mg PO HS #30 tab 06/16/17 01/06/19 Rx Clopidogrel [Plavix] 75 mg PO DAILY #30 tab 06/16/17 01/06/19 Rx Lisinopril [Zestril] 5 mg PO HS #30 tab 06/16/17 01/06/19 Rx Nitroglycerin Sl Tabs [Nitrostat] 0.4 mg SUBLINGUAL Q5M PRN #25 tab 06/16/17 01/03/19 Rx Metoprolol Tartrate [Lopressor] 12.5 mg PO BID tab 06/30/17 01/06/19 Rx Isosorbide Mononitrate ER [Imdur] 60 mg PO DAILY #30 tab.er.24h 08/24/17 01/06/19 Rx Cyclobenzaprine [Flexeril] 10 mg PO TID #12 tab 05/23/19 Rx Ibuprofen [Motrin] 600 mg PO Q8HR PRN #20 tab 05/23/19 Rx Pantoprazole Sodium [Protonix] 40 mg PO DAILY #30 tablet. 09/04/19 Rx Allergies Allergy/AdvReac Type Severity Reaction Status Date / Time No Known Allergies Allergy Verified 01/06/19 06:59 Physical Exam Vitals: Vital Signs Temp Pulse Pulse Resp BP Pulse Ox 09/03/19 23:01 98.0 F 75 16 117/76 09/03/19 21:23 101 H 16 125/91 09/03/19 21:18 98 16 122/90 09/03/19 21:10 103 H 110 H 18 136/94 09/03/19 21:05 100 18 130/95 09/03/19 20:39 98.0 F 102 H 18 131/86 97 Intake and Output 09/03/19 09/03/19 09/04/19 14:59 22:59 06:59 Other: Weight 90.718 kg Results CBC & Chem 7: 09/04/19 10:30 09/03/19 21:10 Labs: Abnormal Lab Results - Last 24 Hours (Table) 09/03/19 Range/Units 21:10 Total Bilirubin 1.9 H (0.2-1.3) mg/dL ALT 53 H (4-49) U/L Creatine Kinase 205 H (55-170) U/L
[2019-09-04 15:20] VITALS: BP 92/53; PULSE 60; TEMP 97.9
[2019-09-04] MEDS ORDERED: LISINOPRIL 5 MG TAB PO SCH (21:00)
[2019-09-04] MEDS ORDERED: ATORVASTATIN 80 MG TAB PO SCH (21:00)
== END 2019-09-04 13:13 | disposition home or self-care (01) ==
LOC: EC 20:34 → 3SCARD 23:05
PROVIDERS: ADMIT Internal Medicine; ATTEND Internal Medicine
DX: R07.89 Other chest pain (principal); I25.10 Atherosclerotic heart disease of native coronary artery without angina pectoris; I10 Essential (primary) hypertension; E78.5 Hyperlipidemia, unspecified; K21.9 Gastro-esophageal reflux disease without esophagitis; F17.210 Nicotine dependence, cigarettes, uncomplicated; Z03.818 Encounter for observation for suspected exposure to other biological agents ruled out; R00.0 Tachycardia, unspecified; I25.2 Old myocardial infarction; Z79.82 Long term (current) use of aspirin; Z79.02 Long term (current) use of antithrombotics/antiplatelets; Z79.899 Other long term (current) drug therapy; Z95.5 Presence of coronary angioplasty implant and graft; Z82.49 Family history of ischemic heart disease and other diseases of the circulatory system
CPT/HCPCS: 96366 ×2; 96375; 93005 ×2; 96376; 96365; 99291; 36415; 85379; 83880; 80061; 80053; 82550; 83690; 83735; 84484 ×2; 85025 ×2; 85610; 85730 ×2; 87635; 71046; G0378 ×2; J1644 ×2; C9113

== ENCOUNTER → 2020-05-30 | Outpatient (CLI) | payer BC ==
[2020-05-30 22:50] LABS: Basophils # (A) 0.03 X 10*3/uL (0.00-0.10); Basophils % (A) 0.5 %; Eosinophils # (A) 0.27 X 10*3/uL (0.04-0.35); Eosinophils % (A) 4.2 %; HCT 42.6 % (39.6-50.0); HGB 14.4 g/dL (13.0-17.0); Lymphocytes # (A) 1.62 X 10*3/uL (0.90-5.00); Lymphocytes % (A) 25.4 %; MCH 31.4 pg (27.0-32.0); MCHC 33.8 g/dL (32.0-37.0); Mean Platelet Volume 10.7 fL (9.5-12.2); Monocytes % (A) 14.1 %; Neutrophils # (A) 3.52 X 10*3/uL (1.80-7.70); Neutrophils % (A) 55.3 %; Platelet Count 230 X 10*3/uL (140-440); RBC 4.58 X 10*6/uL (4.40-5.60); RDW 11.8 % (11.5-14.5); WBC 6.37 X 10*3/uL (4.50-10.00)
[2020-05-31 01:56] LABS: African American GFR (CKD) 112.5 (60.0-200.0); Albumin 4.6 g/dL (3.80-4.90); Albumin/Globulin Ratio 2.3 (1.60-3.17); Anion Gap 7.2 mmol/L (4.00-12.00); Calcium 9.2 mg/dL (8.7-10.3); Carbon Dioxide 25.8 mmol/L (21.6-31.8); Non-African American GFR(CKD) 97.1 (60.0-200.0); Potassium 4.9 mmol/L (3.5-5.5); Total Bilirubin 1.4 mg/dL (0.2-1.2); Total Protein 6.6 g/dL (6.2-8.2)
== END | disposition home or self-care (01) ==
LOC: LABWHC1 11:16
PROVIDERS: ATTEND Internal Medicine Cardiovascular Disease
DX: I25.10 Atherosclerotic heart disease of native coronary artery without angina pectoris (principal)
CPT/HCPCS: 36415; 80053; 84439; 84443; 85025

== ENCOUNTER 2021-04-26 12:24 | Emergency (ER) | payer BC ==
[2021-04-26 12:58] VITALS: BP 158/96; PULSE 92; RESP 16; TEMP 99.4
[2021-04-26] MEDS ORDERED: ACETAMINOPHEN TAB 325 MG TAB PO STA (13:38)
--- NOTE | 2021-04-26 13:42 | ED ---
General Adult HPI - General Chief complaint: Recheck/Abnormal Lab/Rx Stated complaint: covid+, wants infusion Time Seen by Provider: 04/26/21 13:30 Source: patient, RN notes reviewed, old records reviewed Mode of arrival: ambulatory Limitations: no limitations - History of Present Illness Initial comments: Well-appearing 60-year-old male presents to the emergency room with complaints of testing positive for Covid today at the urgent care. Patient states that Thursday he developed headache and fatigue. He called his clinical data coordinator's office and they recommended he come to the emergency room for monoclonal antibodies. He is fully immunized. He is a former smoker. His last stent was placed 3 years ago in his RCA. He denies any chest pain or shortness of breath -: days(s) (4) Location: head Severity scale (1-10): 6 Quality: aching Consistency: intermittent Improves with: none Worsens with: none Associated Symptoms: malaise Treatments Prior to Arrival: NSAID (aleve) - Related Data Home Medications Medication Instructions Recorded Confirmed ALPRAZolam [Xanax] 1 mg PO HS 09/04/19 09/04/19 Isosorbide Mononitrate ER [Imdur] 30 mg PO DAILY 09/04/19 09/04/19 Metoprolol Tartrate 12.5 mg PO BID 09/04/19 09/04/19 Omeprazole 20 mg PO DAILY 09/04/19 09/04/19 lisinopriL [Prinivil] 5 mg PO DAILY 09/04/19 09/04/19 Previous Rx's Medication Instructions Recorded Aspirin 81 mg PO DAILY #30 chew 06/16/17 Atorvastatin [Lipitor] 80 mg PO HS #30 tab 06/16/17 Clopidogrel [Plavix] 75 mg PO DAILY #30 tab 06/16/17 Nitroglycerin Sl Tabs [Nitrostat] 0.4 mg SUBLINGUAL Q5M PRN #25 tab 06/16/17 Pantoprazole Sodium [Protonix] 40 mg PO DAILY #30 tablet. 09/04/19 Allergies Allergy/AdvReac Type Severity Reaction Status Date / Time No Known Allergies Allergy Verified 09/04/19 12:16 Review of Systems ROS Statement: Those systems with pertinent positive or pertinent negative responses have been documented in the HPI. ROS Other: All systems not noted in ROS Statement are negative. Past Medical History Past Medical History: Myocardial Infarction (CT) Additional Past Medical History / Comment(s): stent times three to RCA, STATES RT GROIN STILL BRUISED Last Myocardial Infarction Date:: 06/25/2017 History of Any Multi-Drug Resistant Organisms: None Reported Past Surgical History: No Surgical Hx Reported, Heart Catheterization With Stent Additional Past Surgical History / Comment(s): stent times 3 to RCA, 2 stents 06/29/17 (1 stent LAD, 1 stent OM) Past Anesthesia/Blood Transfusion Reactions: No Reported Reaction Additional Past Anesthesia/Blood Transfusion Reaction / Comment(s): has never had general anesthesia Date of Last Stent Placement:: 06/29/17 Past Psychological History: No Psychological Hx Reported Past Alcohol Use History: Occasional Past Drug Use History: None Reported - Past Family History Father Family Medical History: Coronary Artery Disease (CAD) Additional Family Medical History / Comment(s): Father had his first CT in his 40's. He had CABG twice. He of a CT at the age of 67yrs. Mother Family Medical History: Coronary Artery Disease (CAD) Additional Family Medical History / Comment(s): Mother had CABG. She of a CT at the age of 67yrs. General Exam Limitations: no limitations General appearance: alert, in no apparent distress Head exam: Present: atraumatic, normocephalic, normal inspection Eye exam: Present: normal appearance, EOMI. Absent: scleral icterus, conjunctival injection, periorbital swelling, periorbital tenderness Neck exam: Present: normal inspection, full ROM. Absent: tenderness, men ingismus Respiratory exam: Present: normal lung sounds bilaterally. Absent: respiratory distress, wheezes, rales, rhonchi, stridor, chest wall tenderness, accessory muscle use, decreased breath sounds Cardiovascular Exam: Present: regular rate, normal rhythm, normal heart sounds. Absent: systolic murmur, diastolic murmur, rubs, gallop, clicks Extremities exam: Absent: pedal edema Back exam: Absent: tenderness Neurological exam: Present: alert, oriented X3 Psychiatric exam: Present: normal affect, normal mood Skin exam: Present: warm, dry, intact, normal color. 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 States he tested positive for Covid today at the urgent care after he developed headache and fatigue on Thursday. He is fully immunized. Criteria was reviewed with the patient and he does not meet criteria for monoclonal antibodies infusion. He denies any chest pain or shortness of breath. His vital signs are stable with an oxygen satura tion of 95% on room air. Lungs are clear. He was instructed to return to the emergency room with any new or worsening symptoms. Take vitamin C vitamin D and zinc and self quarantine for 10 days from symptom onset. Case was discussed with Dr. Heredia. Disposition Clinical Impression: COVID-19 Disposition: HOME SELF-CARE Condition: Good Instructions (If sedation given, give patient instructions): Coronavirus Disease 2019 (COVID-19) Additional Instructions: Self quarantine for 5 days and if symptom-free you can go into public with a mask for an additional 5 days. Return to emergency room if any new or worsening symptoms. Vitamin C, vitamin D and zinc for immune health. Increase your fluid intake to 6-8 glasses of water a day. Is patient prescribed a controlled substance at d/c from ED?: No Referrals: None,Stated [Primary Care Provider] - 1-2 days Time of Disposition: 13:56
== END 2021-04-26 14:00 | disposition home or self-care (01) ==
LOC: EC 12:24
DX: U07.1 COVID-19 (principal); I25.2 Old myocardial infarction; Z87.891 Personal history of nicotine dependence; Z79.82 Long term (current) use of aspirin; Z79.02 Long term (current) use of antithrombotics/antiplatelets
CPT/HCPCS: 99283

== ENCOUNTER 2021-07-06 02:33 | Inpatient (IN) | payer BC ==
[2021-07-06] MEDS ORDERED: HEPARIN SODIUM 1,000 UN/ML (10ML VL) IV ONE (02:41)
[2021-07-06] MEDS ORDERED: SODIUM CHLORIDE 0.9% 1,000 ML IV STA ×2 (02:41→02:56)
[2021-07-06] MEDS ORDERED: ASPIRIN 81 MG PO STA (02:41)
[2021-07-06] MEDS ORDERED: MORPHINE SULFATE 4 MG/ML SYRINGE IV STA (02:41)
[2021-07-06] MEDS ORDERED: NITROGLYCERIN OINT 1 INCH/GM PACKET TOPICAL STA (02:41)
[2021-07-06] MEDS ORDERED: NITROGLYCERIN SL TABS 0.4 MG TAB SUBLINGUAL PRN ×2 (02:41→04:50)
--- NOTE | 2021-07-06 02:43 | ED ---
Chest Pain HPI - General Chief Complaint: Chest Pain Stated Complaint: Chest Pain Time Seen by Provider: 07/06/21 02:41 Source: patient, EMS Mode of arrival: EMS - Related Data Home Medications Medication Instructions Recorded Confirmed ALPRAZolam [Xanax] 1 mg PO HS 09/04/19 09/04/19 Isosorbide Mononitrate ER [Imdur] 30 mg PO DAILY 09/04/19 09/04/19 Metoprolol Tartrate 12.5 mg PO BID 09/04/19 09/04/19 Omeprazole 20 mg PO DAILY 09/04/19 09/04/19 lisinopriL [Prinivil] 5 mg PO DAILY 09/04/19 09/04/19 Previous Rx's Medication Instructions Recorded Aspirin 81 mg PO DAILY #30 chew 06/16/17 Atorvastatin [Lipitor] 80 mg PO HS #30 tab 06/16/17 Clopidogrel [Plavix] 75 mg PO DAILY #30 tab 06/16/17 Nitroglycerin Sl Tabs [Nitrostat] 0.4 mg SUBLINGUAL Q5M PRN #25 tab 06/16/17 Pantoprazole Sodium [Protonix] 40 mg PO DAILY #30 tablet. 09/04/19 Allergies Allergy/AdvReac Type Severity Reaction Status Date / Time No Known Allergies Allergy Verified 09/04/19 12:16 Review of Systems ROS Statement: Those systems with pertinent positive or pertinent negative responses have been documented in the HPI. ROS Other: All systems not noted in ROS Statement are negative. Past Medical History Past Medical History: Myocardial Infarction (IN) Additional Past Medical History / Comment(s): stent times three to RCA, STATES RT GROIN STILL BRUISED Last Myocardial Infarction Date:: 06/25/2017 History of Any Multi-Drug Resistant Organisms: None Reported Past Surgical History: No Surgical Hx Reported, Heart Catheterization With Stent Additional Past Surgical History / Comment(s): stent times 3 to RCA, 2 stents 06/29/17 (1 stent LAD, 1 stent OM) Past Anesthesia/Blood Transfusion Reactions: No Reported Reaction Additional Past Anesthesia/Blood Transfusion Reaction / Comment(s): has never had general anesthesia Date of Last Stent Placement:: 06/29/17 Past Psychological History: No Psychological Hx Reported Smoking Status: Never smoker Past Alcohol Use History: Occasional Past Drug Use History: None Reported - Past Family History Father Family Medical History: Coronary Artery Disease (CAD) Additional Family Medical History / Comment(s): Father had his first IN in his 40's. He had CABG twice. He of a IN at the age of 67yrs. Mother Family Medical History: Coronary Artery Disease (CAD) Additional Family Medical History / Comment(s): Mother had CABG. She of a IN at the age of 67yrs. Course Vital Signs 07/06/21 02:35 Temperature 97.6 F Pulse Rate 96 Respiratory 18 Rate Blood Pressure 153/101 O2 Sat by Pulse 96 Oximetry Disposition Clinical Impression: ST elevation myocardial infarction (STEMI) Disposition: ADMITTED IP TO THIS HOSP Condition: Serious Is patient prescribed a controlled substance at d/c from ED?: No Referrals: None,Stated [Primary Care Provider] - 1-2 days
[2021-07-06] MEDS ORDERED: HEPARIN SOD,PORK IN 0.45% NACL 25,000 UNIT in 0.45% NACL 1 250ML.BAG IV SCH (02:45)
--- NOTE | 2021-07-06 02:55 | XR ---
EXAMINATION TYPE: XR chest 1V portable DATE OF EXAM: 07/06/2021 COMPARISON: 09/03/2019 HISTORY: Chest pain TECHNIQUE: FINDINGS: There is poor inspiration with some atelectasis at the lung bases and more on the right vickey e. No heart failure seen. There are chest leads. Heart size is normal. There is no pleural effusion. IMPRESSION: Atelectasis at the lung bases which is new compared to the old exam. No obvious heart camryn lure.
[2021-07-06] MEDS ORDERED: METOPROLOL TARTRATE 5 MG/5 ML VIAL IVP SCH (03:00)
[2021-07-06] MEDS: ATORVASTATIN 80 MG TAB PO SCH (03:00)
[2021-07-06] MEDS ORDERED: LIDOCAINE 1% INJ 10MG/ML (20 ML MDV) ONE (03:17)
[2021-07-06] MEDS ORDERED: VERAPAMIL 2.5 MG/ML 2 ML AMP ONE (03:18)
[2021-07-06] MEDS ORDERED: fentaNYL (PF) 50 MCG/ML 2 ML AMP ONE (03:25)
[2021-07-06] MEDS ORDERED: HEPARIN SODIUM 1,000 UN/ML (10ML VL) ONE (03:25)
[2021-07-06 03:27] LABS: Basophils % (A) 1 %; Eosinophils # (A) 0.1 k/uL (0-0.7); Eosinophils % (A) 2 %; HCT 46.1 % (39.0-53.0); HGB 15.3 gm/dL (13.0-17.5); Lymphocytes # (A) 1.6 k/uL (1.0-4.8); Lymphocytes % (A) 23 %; MCH 31.1 pg (25.0-35.0); MCHC 33.2 g/dL (31.0-37.0); MCV 93.8 fL (80.0-100.0); Mean Platelet Volume 7.2; Monocytes # (A) 0.5 k/uL (0-1.0); Monocytes % (A) 8 %; Neutrophils # (A) 4.4 k/uL (1.3-7.7); Neutrophils % (A) 64 %; Platelet Count 260 k/uL (150-450); RBC 4.91 m/uL (4.30-5.90); RDW 12.9 % (11.5-15.5); WBC 6.9 k/uL (3.8-10.6)
[2021-07-06] MEDS ORDERED: IV FLUID CONTINUATION 1,000 ML IV ONE ×2 (03:31→04:25)
[2021-07-06] MEDS ORDERED: fentaNYL (PF) 50 MCG/ML 2 ML AMP IV ONE (03:31)
[2021-07-06] MEDS ORDERED: MIDAZOLAM 2 MG/2 ML VIAL IV ONE (03:31)
--- NOTE | 2021-07-06 03:31 | P.CRDCN ---
History of Present Illness History of present illness: HISTORY OF PRESENTING ILLNESS This is a pleasant 60-year-old with past medical history significant for CAD status post PCI to the RCA, LAD and circumflex, hypertension, hyperlipidemia. Patient woke up and was not feeling well and apparently had an argument and started having chest pain and shortness breath which felt exactly the same as prior RI and therefore presented to emergency department. He denies any recent fevers, chills, cough. Initial EKG showed ST elevation inferiorly and therefore I was activated. Denies any tobacco, does drink alcohol and no illicit drugs. REVIEW OF SYSTEMS At the time of my exam: CONSTITUTIONAL: Denies fever or chills. CARDIOVASCULAR: +Chest pain, no shortness of breath, orthopnea, PND or palpitations. RESPIRATORY: Denies cough. GASTROINTESTINAL: Denies abdominal pain, diarrhea, constipation, nausea or vomiting. MUSCULOSKELETAL: Denies myalgias. NEUROLOGIC: Denies numbness, tingling or weakness. ENDOCRINE: Denies fatigue, weight change, polydipsia or polyurina. GENITOURINARY: Denies burning, hematuria or urgency with micturation. HEMATOLOGIC: Denies history of anemia or bleeding. PHYSICAL EXAMINATION Vital signs reviewed. CONSTITUTIONAL: No apparent distress. HEENT: Head is normocephalic. Pupils are equal, round. Sclerae anicteric. Mucous membranes of the mouth are moist. No JVD. No carotid bruit. CHEST EXAMINATION: Lungs are clear to auscultation. No chest wall tenderness is noted on palpation or with deep breathing. HEART EXAMINATION: Regular rate and rhythm. S1, S2 heard. No murmurs, gallops or rub. ABDOMEN: Soft, nontender. Positive bowel sounds. EXTREMITIES: 2+ peripheral pulses, no lower extremity edema and no calf tenderness. NEUROLOGIC EXAMINATION: Patient is awake, alert and oriented x3. ASSESSMENT 1. Acute inferior STEMI 2. Coronary artery disease with history of PCI 3. Hypertension 4. Hyperlipidemia PLAN Emergency catheterization with likely PCI. Check 2-D echo. Heparin drip. Further recommendations to follow. Past Medical History Past Medical History: Myocardial Infarction (RI) Additional Past Medical History / Comment(s): stent times three to RCA, STATES RT GROIN STILL BRUISED Last Myocardial Infarction Date:: 06/25/2017 History of Any Multi-Drug Resistant Organisms: None Reported Past Surgical History: No Surgical Hx Reported, Heart Catheterization With Stent Additional Past Surgical History / Comment(s): stent times 3 to RCA, 2 stents 06/29/17 (1 stent LAD, 1 stent OM) Past Anesthesia/Blood Transfusion Reactions: No Reported Reaction Additional Past Anesthesia/Blood Transfusion Reaction / Comment(s): has never had general anesthesia Date of Last Stent Placement:: 06/29/17 Past Psychological History: No Psychological Hx Reported Smoking Status: Never smoker Past Alcohol Use History: Occasional Past Drug Use History: None Reported - Past Family History Father Family Medical History: Coronary Artery Disease (CAD) Additional Family Medical History / Comment(s): Father had his first RI in his 40's. He had CABG twice. He of a RI at the age of 67yrs. Mother Family Medical History: Coronary Artery Disease (CAD) Additional Family Medical History / Comment(s): Mother had CABG. She of a RI at the age of 67yrs. Medications and Allergies Home Medications Medication Instructions Recorded Confirmed Type Aspirin 81 mg PO DAILY #30 chew 06/16/17 09/04/19 Rx Atorvastatin [Lipitor] 80 mg PO HS #30 tab 06/16/17 09/04/19 Rx Clopidogrel [Plavix] 75 mg PO DAILY #30 tab 06/16/17 09/04/19 Rx Nitroglycerin Sl Tabs [Nitrostat] 0.4 mg SUBLINGUAL Q5M PRN #25 tab 06/16/17 09/04/19 Rx ALPRAZolam [Xanax] 1 mg PO HS 09/04/19 09/04/19 History Isosorbide Mononitrate ER [Imdur] 30 mg PO DAILY 09/04/19 09/04/19 History Metoprolol Tartrate 12.5 mg PO BID 09/04/19 09/04/19 History Omeprazole 20 mg PO DAILY 09/04/19 09/04/19 History Pantoprazole Sodium [Protonix] 40 mg PO DAILY #30 tablet. 09/04/19 Rx lisinopriL [Prinivil] 5 mg PO DAILY 09/04/19 09/04/19 History Allergies Allergy/AdvReac Type Severity Reaction Status Date / Time No Known Allergies Allergy Verified 09/04/19 12:16 Physical Exam Vitals: Vital Signs Temp Pulse Pulse Resp BP Pulse Ox 07/06/21 03:10 81 18 162/108 98 07/06/21 03:03 92 07/06/21 02:55 85 18 167/105 98 07/06/21 02:40 82 22 164/102 95 07/06/21 02:35 97.6 F 96 18 153/101 96 Intake and Output 07/05/21 07/05/21 07/06/21 14:59 22:59 06:59 Other: Weight 90.718 kg Results Current Medications Generic Name Dose Route Start Last Admin Trade Name Freq PRN Reason Stop Dose Admin Aspirin 325 mg 07/07/21 09:00 Aspirin 325 Mg Tab PO DAILY CHANDLER Atorvastatin Calcium 80 mg 07/06/21 09:00 07/06/21 03:00 Atorvastatin 80 Mg Tab PO 80 mg DAILY CHANDLER Administration Sodium Chloride 1,000 mls @ 100 mls/hr 07/06/21 02:41 07/06/21 02:54 Saline 0.9% IV 07/06/21 12:40 100 mls/hr .Q10H STA Administration Heparin Sodium/Sodium Chloride 250 mls @ 10.886 mls/hr 07/06/21 02:45 07/06/21 02:51 25,000 unit/ Sodium Chloride IV 12 units/kg/hr .[id number] CHANDLER 10.886 mls/hr Administration Protocol 12 UNITS/KG/HR Sodium Chloride 1,000 mls @ 999 mls/hr 07/06/21 02:56 07/06/21 02:56 Saline 0.9% IV 07/06/21 03:56 999 mls/hr .Q1H1M STA Administration Metoprolol Tartrate 25 mg 07/06/21 09:00 Metoprolol Tartrate 25 Mg Tab PO BID CHANDLER Metoprolol Tartrate 5 mg 07/06/21 03:00 07/06/21 02:59 Metoprolol Tartrate 5 Mg/5 Ml Vial IVP 5 mg Q5M CHANDLER Administration Nitroglycerin 0.4 mg 07/06/21 02:41 Nitroglycerin Sl Tabs 0.4 Mg Tab SUBLINGUAL Q5M PRN Chest Pain Intake and Output 07/05/21 07/05/21 07/06/21 14:59 22:59 06:59 Other: Weight 90.718 kg Patient Weight 07/06/21 06:59 Weight 90.718 kg
[2021-07-06] MEDS ORDERED: LIDOCAINE 1% INJ 10MG/ML (20 ML MDV) SQ ONE (03:33)
[2021-07-06] MEDS ORDERED: VERAPAMIL SYRINGE (5 MG/10 ML) INTRAARTER ONE (03:39)
[2021-07-06 03:40] LABS: ALT 41 U/L (4-49); AST 36 U/L (17-59); African American GFR (CKD) >90 (>60 ml/min/1.73 sqM); Albumin 4.8 g/dL (3.5-5.0); Alkaline Phosphatase 89 U/L (38-126); Anion Gap 14 mmol/L; Blood Urea Nitrogen 15 mg/dL (9-20); Calcium 9.1 mg/dL (8.4-10.2); Carbon Dioxide 21 mmol/L (22-30); Chloride 107 mmol/L (98-107); Glucose 151 mg/dL (74-99); Magnesium 2.2 mg/dL (1.6-2.3); Non-African American GFR(CKD) >90 (>60 ml/min/1.73 sqM); Sodium 142 mmol/L (137-145); Total Bilirubin 1.1 mg/dL (0.2-1.3); Total Protein 8.3 g/dL (6.3-8.2)
[2021-07-06] MEDS: HEPARIN SODIUM 1,000 UN/ML (10ML VL) IV ONE ×4 (03:43→04:28)
[2021-07-06 03:44] LABS: INR 0.9 (<1.2); Prothrombin Time 9.8 sec (9.0-12.0)
[2021-07-06 03:50] LABS: Alcohol 167 mg/dL
[2021-07-06 03:54] LABS: Partial Thromboplastin Time 18.3 sec (22.0-30.0)
[2021-07-06] MEDS ORDERED: TICAGRELOR 90 MG TAB ONE (03:57)
[2021-07-06] MEDS ORDERED: TICAGRELOR 90 MG TAB PO ONE (03:59)
[2021-07-06] MEDS ORDERED: IOPAMIDOL-370 125ML BTL INJ ONE (04:10)
[2021-07-06] MEDS ORDERED: IOPAMIDOL-370 100ML BTL INJ ONE ×2 (04:24)
[2021-07-06] MEDS ORDERED: ATROPINE SULFATE 0.1 MG/ML 10ML SYRINGE IV PRN (04:50)
[2021-07-06] MEDS ORDERED: RX INFO: IV CONTRAST WAS GIVEN 1 EACH MISC MISCELLANE PRN (04:50)
[2021-07-06] MEDS ORDERED: MAG HYDROX/AL HYDROX/SIMETH 30 ML CUP PO PRN (04:50)
[2021-07-06] MEDS ORDERED: ZOLPIDEM 5 MG TAB PO PRN (04:50)
--- NOTE | 2021-07-06 04:50 | P.PRCINT ---
Percutaneous Coronary Int. - Percutaneous Coronary Intervention Percutaneous Coronary Intervention: PROCEDURES PERFORMED: Left heart catheterization, bilateral coronary angiography, IVUS RCA, PCI proximal to mid RCA with overlapping 4.0 x 8mm and 3.5 x 15mm Xience MATILDE INDICATION: Inferior STEMI HISTORY: Patient is a pleasant 60-year-old male with a history of coronary artery disease with multiple PCI of the RCA, circumflex, LAD. He has had 2 separate interventions of the RCA and presented with chest pain that started tonight and was found to have inferior STEMI CONSENT:I have discussed the risks, benefits and alternative therapies for the above-mentioned procedure and for both sedation/analgesia as well as necessary blood product administration, if indicated, as they pertain to this patient. The patient has indicated understanding and acceptance of the risks and procedures discussed. PROCEDURE: After the risks, benefits and alternatives of the above mentioned procedure explained in detail with the patient, informed consent was obtained. Patient was taken to the catheterization lab and prepped and draped in usual fashion. 1% lidocaine was used to anesthetize the right radial artery. A 6- Salvadorean sheath was placed in the right radial artery using modified Seldinger technique. The decision was made to perform PCI of the RCA. A 6-Salvadorean AL 0.75 guide was used to engage the RCA. Heparin was given for ACT greater than 250. Balloon angioplasty was performed with a 3.0 x 8mm balloon. The lesion was noted to be at the level of prior proximal mid RCA stent and therefore IVUS was performed. IVUS showed a reference vessel of 3.5 x 3.25mm distally and mildly underexpanded stent at the distal end of 3.0mm and thrombus with a more proximal reference of 3.75 x 4.0mm. A 3.5 x 15mm Xience MATILDE was placed overlapping the previous stent. There was a more proximal lucency and the proximal portion of the stent was post dilated with a 4.0 x 8mm NC balloon. IVUS was performed which showed no dissection however still small amount of thrombus outside of the stent, at the site of a turn in the artery. Therefore an additional 4.0 x 8mm Xience MATILDE was placed overlapping the proximal portion of the stent. The wire was pulled and final angiograms were performed. Pre intervention there was NYA 2 flow and 95% stenosis and post intervention there was NYA 3 flow and 0% residual stenosis. Left coronary angiography was performed with a 5-Salvadorean JL 3.5 catheter. The 5- Salvadorean FL3.5 catheter was inserted into the left ventricle and pressure measurements were obtained. The right radial sheath was removed and a TR band was placed with hemostasis achieved. The patient tolerated the procedure well. Patient was transported back to the post catheterization holding area in stable condition. Conscious Sedation: Patient was monitored under the direct supervision of vision of myself for conscious sedation using Versed and fentanyl for a total duration of 54 minutes HEMODYNAMICS: Aorta: 144/78 LV: 142/10, LVEDP 30 SELECTIVE CORONARY ARTERIOGRAPHY: LEFT MAIN: The left main is a large caliber vessel which bifurcates into the LAD and circumflex. There is diffuse stenosis with more distal left main 40% stenosis. LEFT ANTERIOR DESCENDING CORONARY ARTERY: LAD is a large caliber vessel which wraps around to the apex. There is a previous mid LAD stent which is patent and diffuse proximal LAD 10-20% stenosis as well as tandem 60-70% mid to distal LAD stenoses. LEFT CIRCUMFLEX CORONARY ARTERY: Left circumflex is a moderate caliber vessel. OM1 is moderate caliber and has mild 20% proximal stenosis. The circumflex then becomes a small caliber vessel and has a tandem 60-70% OM 2 stenoses. RIGHT CORONARY ARTERY: The right coronary artery is a large caliber vessel which gives off a PDA and PLV branch and is the dominant vessel. There is a proximal and mid RCA stent which has a 95% stenosis with thrombus formation. There is a distal RCA stent going into the PLV branch which is widely patent. The PDA has a 50-60% stenosis in the midportion which appears similar to prior angiograms. FINAL IMPRESSION: 1. Diffuse multivessel CAD as described above including 40% left main, 60-70% mid to distal LAD, 60-70% small caliber OM 2, 50-60% mid PDA and culprit vessel 95% proximal and mid RCA stenosis. 2. Status post successful PCI proximal to mid RCA with overlapping 4.0 x 8mm and 3.5 x 15mm Xience MATILDE 3. Elevated left sided filling pressures PLAN: 1. Aggressive risk factor modification per most recent ACC/AHA guidelines. 2. Continue dual antiplatelets for 12 months with aspirin and Brillinta. 3. Remainder of CAD appears similar and may consider stress testing if patient still having angina symptoms.
[2021-07-06 04:54] LABS: Glucose,Whole Blood 130 mg/dL (75-99)
[2021-07-06] MEDS ORDERED: SODIUM CHLORIDE 0.9% 1,000 ML in EMPTY BAG 1 BAG IV SCH (05:00)
[2021-07-06] MEDS: METOPROLOL TARTRATE 25 MG TAB PO SCH ×2 (09:00→21:24)
[2021-07-06] MEDS: TICAGRELOR 90 MG TAB PO SCH ×2 (09:00→21:22)
[2021-07-06] MEDS: ASPIRIN 81 MG PO SCH (09:00)
[2021-07-06 09:57] VITALS: BMI 27.8
--- NOTE | 2021-07-06 12:50 | ECHOF ---
Referral Reason:re: LV function MEASUREMENTS -------- HEIGHT: 157.5 cm WEIGHT: 90.7 kg BP: RVIDd: 3.2 cm (< 3.3) IVSd: 1.0 cm (0.6 - 1.1) LVIDd: 5.4 cm (3.9 - 5.3) LVPWd: 1.1 cm (0.6 - 1.1) IVSs: 1.7 cm LVIDs: 3.5 cm LVPWs: 1.2 cm LA Diam: 3.6 cm (2.7 - 3.8) LAESV Index (A-L): 30.93 ml/m Ao Diam: 3.8 cm (2.0 - 3.7) AV Cusp: 1.9 cm (1.5 - 2.6) LA Diam: 3.6 cm (2.7 - 3.8) MV EXCURSION: 16.659 mm (> 18.000) MV EF SLOPE: 98 mm/s (70 - 150) EPSS: 0.7 cm MV E Ruperto: 0.83 m/s MV DecT: 155 ms MV A Ruperto: 0.83 m/s MV E/A Ratio: 0.99 RAP: 5.00 mmHg RVSP: 14.41 mmHg FINDINGS -------- Sinus rhythm. This was a technically good study. The left ventricular size is normal. There is mild concentric left ventricular hypertrophy. Overa ll left ventricular systolic function is low-normal with, an EF between 50 - 55 %. The right ventricle is normal in size. The left atrial size is normal. The right atrial size is normal. There is mild aortic valve sclerosis. There is no evidence of aortic regurgitation. Mild mitral regurgitation is present. Mild tricuspid regurgitation present. Right ventricular systolic pressure is normal at < 35 mmHg. There is no pulmonic regurgitation present. There is no pericardial effusion. CONCLUSIONS -------- 1. The left ventricular size is normal. 2. There is mild concentric left ventricular hypertrophy. 3. Overall left ventricular systolic function is low-normal with, an EF between 50 - 55 %. 4. The right ventricle is normal in size. 5. The left atrial size is normal. 6. The right atrial size is normal. 7. There is mild aortic valve sclerosis. 8. Mild mitral regurgitation is present. 9. Mild tricuspid regurgitation present. 10. There is no pericardial effusion. WORKFORCE SPECIALIST: Ashlie Santos RDCS
[2021-07-06] MEDS: ISOSORBIDE MONONITRATE ER 30 MG TAB.ER.24H PO SCH (16:22)
--- NOTE | 2021-07-06 17:06 | P.HPIM ---
History of Present Illness H&P Date: 07/06/21 60-year-old with past medical history significant for CAD status post PCI to the RCA, LAD and circumflex, hypertension, hyperlipidemia. Patient woke up and was not feeling well and apparently had an argument and started having chest pain and shortness breath which felt exactly the same as prior [place] and therefore presented to emergency department. He denies any recent fevers, chills, cough. Initial EKG showed ST elevation inferiorly and therefore I was activated. Denies any tobacco, does drink alcohol and no illicit drugs. Patient was taken to the [facility] which revealed--- Diffuse multivessel CAD as described above including 40% left main, 60-70% mid to distal LAD, 60-70% small caliber OM 2, 50-60% mid PDA and culprit vessel 95% proximal and mid RCA stenosis. Patient is post successful PCI proximal to mid RCA with overlapping 4.0 x 8mm and 3.5 x 15mm Xience MATILDE Review of Systems REVIEW OF SYSTEMS: CONSTITUTIONAL: No fever, no malaise, no fatigue. HEENT: No recent visual problems or hearing problems. Denied any sore throat. CARDIOVASCULAR: No chest pain, orthopnea, PND, no palpitations, no syncope. PULMONARY: No shortness of breath, no cough, no hemoptysis. GASTROINTESTINAL: No diarrhea, no nausea, no vomiting, no abdominal pain. NEUROLOGICAL: No headaches, no weakness, no numbness. HEMATOLOGICAL: Denies any bleeding or petechiae. GENITOURINARY: Denies any burning micturition, frequency, or urgency. MUSCULOSKELETAL/RHEUMATOLOGICAL: Denies any joint pain, swelling, or any muscle pain. ENDOCRINE: Denies any polyuria or polydipsia. The rest of the 14-point review of systems is negative. Past Medical History Past Medical History: Myocardial Infarction (TX) Additional Past Medical History / Comment(s): stent times three to RCA Last Myocardial Infarction Date:: 06/25/2017 History of Any Multi-Drug Resistant Organisms: None Reported Past Surgical History: No Surgical Hx Reported, Heart Catheterization With Stent Additional Past Surgical History / Comment(s): stent times 3 to RCA, 2 stents 06/29/17 (1 stent LAD, 1 stent OM) Past Anesthesia/Blood Transfusion Reactions: No Reported Reaction Additional Past Anesthesia/Blood Transfusion Reaction / Comment(s): has never had general anesthesia Date of Last Stent Placement:: 06/29/17 Past Psychological History: No Psychological Hx Reported Additional Psychological History / Comment(s): Pt resides alone. He is independent. Smoking Status: Former smoker Past Alcohol Use History: Occasional Additional Past Alcohol Use History / Comment(s): smoked less than 1/2ppd from teens until 2013 Past Drug Use History: None Reported - Past Family History Father Family Medical History: Coronary Artery Disease (CAD) Additional Family Medical History / Comment(s): Father had his first TX in his 40's. He had CABG twice. He of a TX at the age of 67yrs. Mother Family Medical History: Coronary Artery Disease (CAD) Additional Family Medical History / Comment(s): Mother had CABG. She of a TX at the age of 67yrs. Medications and Allergies Home Medications Medication Instructions Recorded Confirmed Type Aspirin 81 mg PO DAILY #30 chew 06/16/17 07/06/21 Rx Nitroglycerin Sl Tabs [Nitrostat] 0.4 mg SUBLINGUAL Q5M PRN #25 tab 06/16/17 07/06/21 Rx Isosorbide Mononitrate ER [Imdur] 30 mg PO DAILY 09/04/19 07/06/21 History Metoprolol Tartrate 12.5 mg PO BID 09/04/19 07/06/21 History lisinopriL [Prinivil] 5 mg PO HS 09/04/19 07/06/21 History Atorvastatin [Lipitor] 80 mg PO DAILY 07/06/21 07/06/21 History hydrOXYzine HCL [Atarax] 25 mg PO HS PRN 07/06/21 07/06/21 History Allergies Allergy/AdvReac Type Severity Reaction Status Date / Time No Known Allergies Allergy Verified 07/06/21 11:48 Physical Exam Vitals: Vital Signs Temp Pulse Pulse Resp BP BP Pulse Ox 07/06/21 07:00 85 12 156/98 97 07/06/21 06:30 98 8 L 149/99 97 07/06/21 06:00 90 8 L 144/100 97 07/06/21 05:50 90 13 144/100 97 07/06/21 05:40 93 18 144/100 97 07/06/21 05:30 90 11 L 140/92 97 07/06/21 05:20 84 13 140/92 91 L 03/19/22 05:10 85 0 L 135/88 94 L 07/06/21 05:05 88 13 144/100 07/06/21 05:00 85 3 L 139/91 93 L 07/06/21 04:50 97.7 F 88 88 17 07/06/21 04:48 97.7 F 88 12 07/06/21 04:00 88 07/06/21 03:38 97.7 F 85 12 07/06/21 03:12 84 18 156/110 98 07/06/21 03:10 81 18 162/108 98 07/06/21 03:03 92 07/06/21 02:55 85 18 167/105 98 07/06/21 02:40 82 22 164/102 95 07/06/21 02:35 97.6 F 96 18 153/101 96 Intake and Output 07/05/21 07/06/21 07/06/21 22:59 06:59 14:59 Intake Total 420 80 Output Total 700 0 Balance -280 80 Intake: IV 300 Intake, IV Titration 120 80 Amount Sodium Chloride 0.9% 1, 120 80 000 ml In Empty Bag 1 bag @ 40 mls/hr IV .Q24H [facility] Rx#:[id number] Output: Urine 700 0 Other: Weight 90.718 kg PHYSICAL EXAMINATION: GENERAL: The patient is alert and oriented x3, not in any acute distress. Well developed, well nourished. HEENT: Pupils are round and equally reacting to light. EOMI. No scleral icterus. No conjunctival pallor. Normocephalic, atraumatic. No pharyngeal erythema. No thyromegaly. CARDIOVASCULAR: S1 and S2 present. No murmurs, rubs, or gallops. PULMONARY: Chest is clear to auscultation, no wheezing or crackles. ABDOMEN: Soft, nontender, nondistended, normoactive bowel sounds. No palpable organomegaly. MUSCULOSKELETAL: No joint swelling or deformity. EXTREMITIES: No cyanosis, clubbing, or pedal edema. NEUROLOGICAL: Gross neurological examination did not reveal any focal deficits. SKIN: No rashes. Results CBC & Chem 7: 07/06/21 02:42 07/06/21 02:42 Labs: Abnormal Lab Results - Last 24 Hours (Table) 07/06/21 07/06/21 07/06/21 Range/Units 02:42 02:42 04:52 APTT 18.3 L (22.0-30.0) sec Carbon Dioxide 21 L (22-30) mmol/L Glucose 151 H (74-99) mg/dL POC Glucose (mg/dL) 130 H (75-99) mg/dL Troponin I (0.000-0.034) ng/mL Total Protein 8.3 H (6.3-8.2) g/dL 07/06/21 Range/Units 05:42 APTT (22.0-30.0) sec Carbon Dioxide (22-30) mmol/L Glucose (74-99) mg/dL POC Glucose (mg/dL) (75-99) mg/dL Troponin I 0.101 H* (0.000-0.034) ng/mL Total Protein (6.3-8.2) g/dL Assessment and Plan Assessment: 1. Acute inferior STEMI - Patient was placed on IV heparin infusion and was taken for emergency cardiac catheterization - Patient was found to have diffuse multivessel CAD, including 40% left main, 6 0-70% mid to distal LAD, 60-70% OM, 50-60% mid PDA and 95% proximal and mid RCA stenosis - Patient underwent successful PCI proximal to mid RCA with MATILDE - Recommended to continue with dual antiplatelet therapy for 12 months with aspirin and Brillinta 2. Hypertension; uncontrolled - Patient is placed on lisinopril 5 mg daily, metoprolol 25 mg twice a day and indoor 30 mg daily 3. Hyperlipidemia; Lipitor 80 mg daily DVT prophylaxis SCDs/IV heparin CODE STATUS, full code
[2021-07-06] MEDS: FUROSEMIDE 10 MG/ML 2 ML VIAL IV SCH (19:07)
[2021-07-06] MEDS: lisinopriL 5 MG TAB PO SCH (21:22)
[2021-07-07 07:51] LABS: African American GFR (CKD) >90 (>60 ml/min/1.73 sqM); Non-African American GFR(CKD) >90 (>60 ml/min/1.73 sqM)
--- NOTE | 2021-07-07 08:27 | P.PN ---
Subjective HISTORY OF PRESENTING ILLNESS This is a pleasant 60-year-old with past medical history significant for CAD status post PCI to the RCA, LAD and circumflex, hypertension, hyperlipidemia. Patient woke up and was not feeling well and apparently had an argument and started having chest pain and shortness breath which felt exactly the same as prior [place] and therefore presented to emergency department. He denies any recent fevers, chills, cough. Initial EKG showed ST elevation inferiorly and therefore I was activated. Denies any tobacco, does drink alcohol and no illicit drugs. 07/07 Patient seen and examined. Patient denies any chest pain or pressure. He did have 1 episode of a tightness sensation last night which only lasted for a few minutes. Heart catheterization yesterday showed RCA occlusion round previous RCA stent and therefore additional 2 stents were placed. He has had no further similar chest pain since that time. His LVEDP was noted to be elevated and therefore was given Lasix yesterday. He denies any actual shortness breath. Echo performed which showed EF 50-55%. PHYSICAL EXAMINATION Vital signs reviewed. CONSTITUTIONAL: No apparent distress. HEENT: Head is normocephalic. Pupils are equal, round. Sclerae anicteric. Mucous membranes of the mouth are moist. No JVD. No carotid bruit. CHEST EXAMINATION: Lungs are clear to auscultation. No chest wall tenderness is noted on palpation or with deep breathing. HEART EXAMINATION: Regular rate and rhythm. S1, S2 heard. No murmurs, gallops or rub. ABDOMEN: Soft, nontender. Positive bowel sounds. EXTREMITIES: 2+ peripheral pulses, no lower extremity edema and no calf tenderness. NEUROLOGIC EXAMINATION: Patient is awake, alert and oriented x3. ASSESSMENT 1. Acute inferior STEMI, status post PCI RCA 2. Coronary artery disease with history of PCI 3. Hypertension 4. Hyperlipidemia 5. EF 50-55% 6. Acute on chronic diastolic heart failure, elevated LVEDP noted with mild tightness and shortness breath PLAN Continue dual antiplatelets with aspirin and Brilinta. Ideally continue with Brilinta given a stent within a stent was placed however if his issues with cost may consider changing to Plavix down the road. He did have 1 episode of different type of chest tightness and may be some form of heart failure symptoms. Elevated LVEDP and we will monitor response of Lasix however unsure if he will need Lasix going home. Otherwise supportive care and likely discharge home tomorrow morning if remains stable. Objective - Vital Signs Vital signs: Vital Signs Temp 98.5 F 07/07/21 04:00 Pulse 81 07/07/21 07:00 Resp 12 07/07/21 07:00 BP 126/79 07/07/21 07:00 Pulse Ox 93 L 07/07/21 06:00 Intake & Output 07/06/21 07/07/21 07/07/21 18:59 06:59 18:59 Intake Total 1140 Output Total 1000 2450 Balance 140 -2450 Weight 90.718 kg Intake: Intake, IV Titration 240 Amount Sodium Chloride 0.9% 1, 240 000 ml In Empty Bag 1 bag @ 40 mls/hr IV .Q24H [facility] Rx#:[id number] Oral 900 Output: Urine 1000 2450 Other: # Voids 1 - Labs CBC & Chem 7: 07/06/21 02:42 07/07/21 07:05 Labs: Abnormal Lab Results - Last 24 Hours (Table) 07/06/21 Range/Units 09:57 Troponin I 1.380 H* (0.000-0.034) ng/mL
[2021-07-07] MEDS: TICAGRELOR 90 MG TAB PO SCH ×2 (08:57→20:43)
[2021-07-07] MEDS: METOPROLOL TARTRATE 25 MG TAB PO SCH ×2 (08:57→20:42)
[2021-07-07] MEDS: ATORVASTATIN 80 MG TAB PO SCH (08:57)
[2021-07-07] MEDS: ISOSORBIDE MONONITRATE ER 30 MG TAB.ER.24H PO SCH (08:58)
[2021-07-07] MEDS: ASPIRIN 81 MG PO SCH (08:58)
[2021-07-07] MEDS ORDERED: ISOSORBIDE MONONITRATE ER 30 MG TAB.ER.24H PO SCH (09:00)
[2021-07-07] MEDS ORDERED: ASPIRIN 325 MG TAB PO SCH (09:00)
[2021-07-07] MEDS: FUROSEMIDE 10 MG/ML 2 ML VIAL IV SCH (10:14)
[2021-07-07 12:48] LABS: Chol/HDL Ratio 4.01 Ratio; LDL Cholesterol,Calculated 75.3 mg/dL (0.0-131.0)
--- NOTE | 2021-07-07 18:04 | P.PN ---
Subjective Progress Note Date: 07/07/21 Principal diagnosis: Acute inferior STEMI Status post PCI RCA Acute on chronic diastolic heart failure 60-year-old with past medical history significant for CAD status post PCI to the RCA, LAD and circumflex, hypertension, hyperlipidemia. Patient woke up and was not feeling well and apparently had an argument and started having chest pain and shortness breath which felt exactly the same as prior [place] and therefore presented to emergency department. He denies any recent fevers, chills, cough. Initial EKG showed ST elevation inferiorly and therefore I was activated. Denies any tobacco, does drink alcohol and no illicit drugs. Patient was taken to the [facility] which revealed--- Diffuse multivessel CAD as described above including 40% left main, 60-70% mid to distal LAD, 60-70% small caliber OM 2, 50-60% mid PDA and culprit vessel 95% proximal and mid RCA stenosis. Patient is post successful PCI proximal to mid RCA with overlapping 4.0 x 8mm and 3.5 x 15mm Xience MATILDE Cardiology on board and recommending to continue dual antiplatelets with aspirin and Brilinta. He did have 1 episode of different type of chest tightness and may be some form of heart failure symptoms. Elevated LVEDP and we will monitor response of Lasix however unsure if he will need Lasix going home. Otherwise supportive care and likely discharge home tomorrow morning if remains stable. Objective - Vital Signs Vital signs: Vital Signs Temp 98.2 F 07/07/21 08:00 Pulse 68 07/07/21 08:00 Resp 15 07/07/21 08:00 BP 139/90 07/07/21 08:00 Pulse Ox 93 L 07/07/21 08:00 Intake & Output 07/06/21 07/07/21 07/07/21 18:59 06:59 18:59 Intake Total 1140 Output Total 1000 2450 Balance 140 -2450 Weight 90.718 kg Intake: Intake, IV Titration 240 Amount Sodium Chloride 0.9% 1, 240 000 ml In Empty Bag 1 bag @ 40 mls/hr IV .Q24H [facility] Rx#:[id number] Oral 900 Output: Urine 1000 2450 Other: # Voids 1 - Exam GENERAL: The patient is alert and oriented x3, not in any acute distress. Well developed, well nourished. HEENT: Pupils are round and equally reacting to light. EOMI. No scleral icterus. No conjunctival pallor. Normocephalic, atraumatic. No pharyngeal erythema. No thyromegaly. CARDIOVASCULAR: S1 and S2 present. No murmurs, rubs, or gallops. PULMONARY: Chest is clear to auscultation, no wheezing or crackles. ABDOMEN: Soft, nontender, nondistended, normoactive bowel sounds. No palpable organomegaly. MUSCULOSKELETAL: No joint swelling or deformity. EXTREMITIES: No cyanosis, clubbing, or pedal edema. NEUROLOGICAL: Gross neurological examination did not reveal any focal deficits. SKIN: No rashes. - Labs CBC & Chem 7: 07/06/21 02:42 07/07/21 07:05 Labs: Abnormal Lab Results - Last 24 Hours (Table) 07/06/21 Range/Units 09:57 Troponin I 1.380 H* (0.000-0.034) ng/mL Assessment and Plan Assessment: 1. Acute inferior STEMI - Patient was placed on IV heparin infusion and was taken for emergency cardiac catheterization - Patient was found to have diffuse multivessel CAD, including 40% left main, 60-70% mid to distal LAD, 60-70% OM, 50-60% mid PDA and 95% proximal and mid RCA stenosis - Patient underwent successful PCI proximal to mid RCA with MATILDE - Recommended to continue with dual antiplatelet therapy for 12 months with aspirin and Brillinta 2. Hypertension; uncontrolled - Patient is placed on lisinopril 5 mg daily, metoprolol 25 mg twice a day and indoor 30 mg daily 3. Hyperlipidemia; Lipitor 80 mg daily DVT prophylaxis SCDs/IV heparin CODE STATUS, full code
[2021-07-07] MEDS: lisinopriL 5 MG TAB PO SCH (20:43)
[2021-07-08 09:01] VITALS: BP 135/75; PULSE 75; RESP 14; TEMP 98.1
[2021-07-08] MEDS: ATORVASTATIN 80 MG TAB PO SCH (09:01)
[2021-07-08] MEDS: TICAGRELOR 90 MG TAB PO SCH (09:02)
[2021-07-08] MEDS: FUROSEMIDE 10 MG/ML 2 ML VIAL IV SCH (09:02)
[2021-07-08] MEDS: ISOSORBIDE MONONITRATE ER 30 MG TAB.ER.24H PO SCH (09:03)
[2021-07-08] MEDS: METOPROLOL TARTRATE 25 MG TAB PO SCH (09:03)
[2021-07-08] MEDS: ASPIRIN 81 MG PO SCH (09:10)
--- NOTE | 2021-07-08 12:17 | P.PN ---
Subjective Progress Note Date: 07/08/21 HISTORY OF PRESENT ILLNESS: This is a pleasant 60-year-old with past medical history significant for CAD status post PCI to the RCA, LAD and circumflex, hypertension, hyperlipidemia. Patient woke up and was not feeling well and apparently had an argument and started having chest pain and shortness breath which felt exactly the same as prior [place] and therefore presented to emergency department. He denies any recent fevers, chills, cough. Initial EKG showed ST elevation inferiorly and therefore I was activated. Denies any tobacco, does drink alcohol and no illicit drugs. 07/07 Patient seen and examined. Patient denies any chest pain or pressure. He did have 1 episode of a tightness sensation last night which only lasted for a few minutes. Heart catheterization yesterday showed RCA occlusion round previous RCA stent and therefore additional 2 stents were placed. He has had no further similar chest pain since that time. His LVEDP was noted to be elevated and therefore was given Lasix yesterday. He denies any actual shortness breath. Echo performed which showed EF 50-55%. 07/08/2021 Patient examined this morning at the bedside. Patient denies chest pain or pressure. Denies SOB. Vital signs are stable. PHYSICAL EXAM: VITAL SIGNS: Reviewed. GENERAL: Well-developed in no acute distress. NECK: Supple. No JVD or thyromegaly LUNGS: Respirations even and unlabored. Lungs essentially clear to auscultation bilaterally. HEART: Regular rate and rhythm. S1 and S2 heard. EXTREMITIES: Normal range of motion. No clubbing or cyanosis. Peripheral pulses intact. No lower extremity edema ASSESSMENT: 1. Acute inferior STEMI, status post PCI RCA 2. Coronary artery disease with history of PCI 3. Hypertension 4. Hyperlipidemia 5. Acute on chronic diastolic heart failure, elevated LVEDP noted with mild tightness and shortness breath PLAN: Continue current cardiac medications Discontinue IV lasix. Patient does not need to be started on oral lasix at this time. Patient may be discharged home today from a cardiac standpoint Patient to follow up outpatient with Dr. Cade Nurse practitioner note has been reviewed by physician. Signing provider agrees with the documented findings, assessment, and plan of care. Objective - Vital Signs Vital signs: Vital Signs Temp 98.1 F 07/08/21 08:00 Pulse 75 07/08/21 08:00 Resp 14 07/08/21 08:00 BP 135/75 07/08/21 08:00 Pulse Ox 95 07/08/21 08:00 Intake & Output 07/07/21 07/08/21 07/08/21 18:59 06:59 18:59 Intake Total 780 118 Output Total 300 475 Balance 480 -357 Intake: Oral 780 118 Output: Urine 300 475 Other: # Voids 2 1 - Labs CBC & Chem 7: 07/06/21 02:42 07/07/21 07:05 Labs: Abnormal Lab Results - Last 24 Hours (Table) 07/07/21 Range/Units 07:05 HDL Cholesterol 34.90 L (40.00-60.00) mg/dL
--- NOTE | 2021-07-09 21:53 | P.DS ---
Providers Date of admission: 07/06/21 02:51 Attending physician: Rashid Kumar Consults: 07/06/21 02:42 Consult Physician Urgent Consulting Provider: Celsa Ibarra Consult Reason/Comments: stemi Do you want consulting provider notified?: Yes 07/06/21 04:50 Consult Physician Routine Consulting Provider: [facility] Consult Reason/Comments: Post Interventional patient Do you want consulting provider notified?: Already Contacted Primary care physician: Stated None Hospital Course: Final Diagnosis Acute inferior STEMI Hypertension Hyperlipidemia Coronary artery disease with prior stenting Former smoker quit in 2013 Elevated random blood glucose recommend follow up with primary for A1C Full Code Discharge Disposition Patient discharged in stable condition to follow up with primary care, and cardiology in the office. Hospital Course This is a pleasant 60 year old male who presents to the with chest pain that was preceded by an argument. He had been consuming alcohol as well at that time. He was treated with aspirin, morphine, lopressor and heparin and was taken to the cardiovascular lab for intervention. EKG on admission shows ST elevation in multiple leads. Chest xray on admission shows atelectasis at the lung bases which is new. Blood pressure was elevated 150/100s. Patient had troponin elevation of <0.012, 0.101, 1.380. BNP 39. Cholesterol panel shows triglycerides 149, cholesterol 140, LDL 75, HDL 34.9. Serum alcohol on admission 167. Patient has 2 prior stents to the RCA as well as prior stenting to the circumflex and LAD. Catheterization reveals multivessel disease with successful stenting of RCA within prior stent. Patient will be started on brilenta and continue on aspirin for dual antiplatlet therapy. Echocardiogram shows EF 50 to 55% with mild mitral regurg, mild mitral regurg, mild aortic valve sclerosis. 07/08/2021 Patient evaluated today s/p PCI to the RCA. Right radial puncture is soft no ecchymosis with positive peripheral pulse. No complaints of chest pain, chest pressure, cough, shortness of breath. No acute events over night. Patient understands need for alcohol cessation. Discussed lifestyle modifications including diet. Patient would like to be discharge home. Labs are stable. Vitals are stable, blood pressure has improved to 135/75. Metoprolol was also increased on discharge to 25 mg PO BID. Lungs are clear, S1 S2 auscultated, focal neurological exam is negative. Please see medication reconciliation for a list of current medications. Thank you for allowing us to participate in the care of this patient. Patient Condition at Discharge: Stable Plan - Discharge Summary Discharge Rx Participant: Yes New Discharge Prescriptions: New Ticagrelor [Brilinta] 90 mg PO BID #60 tab Metoprolol Tartrate [Lopressor] 25 mg PO BID #60 tab Mag Hydrox/Al Hydrox/Simeth [Maalox] 30 ml PO Q4HR PRN ml PRN Reason: Heartburn Continue Aspirin 81 mg PO DAILY #30 chew Nitroglycerin Sl Tabs [Nitrostat] 0.4 mg SUBLINGUAL Q5M PRN #25 tab PRN Reason: Chest Pain lisinopriL [Prinivil] 5 mg PO HS Isosorbide Mononitrate ER [Imdur] 30 mg PO DAILY Atorvastatin [Lipitor] 80 mg PO DAILY hydrOXYzine HCL [Atarax] 25 mg PO HS PRN PRN Reason: Insomnia Discontinued Metoprolol Tartrate 12.5 mg PO BID Discharge Medication List Aspirin 81 mg PO DAILY #30 chew 06/16/17 [Rx] Nitroglycerin Sl Tabs [Nitrostat] 0.4 mg SUBLINGUAL Q5M PRN #25 tab 06/16/17 [Rx] Isosorbide Mononitrate ER [Imdur] 30 mg PO DAILY 09/04/19 [History] lisinopriL [Prinivil] 5 mg PO HS 09/04/19 [History] Atorvastatin [Lipitor] 80 mg PO DAILY 07/06/21 [History] hydrOXYzine HCL [Atarax] 25 mg PO HS PRN 07/06/21 [History] Mag Hydrox/Al Hydrox/Simeth [Maalox] 30 ml PO Q4HR PRN ml 07/08/21 [Rx] Metoprolol Tartrate [Lopressor] 25 mg PO BID #60 tab 07/08/21 [Rx] Ticagrelor [Brilinta] 90 mg PO BID #60 tab 07/08/21 [Rx] Follow up Appointment(s)/Referral(s): Arthur Cade MD [STAFF PHYSICIAN] - 1 Week Zi Berg MD [STAFF PHYSICIAN] - 3 Days (New patient ) Patient Instructions/Handouts: *[facility] - After Heart Catheterization - Director Sales Instructions, Heart Healthy Diet (DC) Discharge Disposition: HOME SELF-CARE
== END 2021-07-08 14:04 | disposition home or self-care (01) | DRG 246 ==
LOC: EC 02:33 → 2SICU 02:51 → 3SCARD 07-07 12:55
PROVIDERS: ADMIT Hospitalist; ATTEND Hospitalist
PROC: B2111ZZ Fluoroscopy of Multiple Coronary Arteries using Low Osmolar Contrast (ICD-10-PCS; principal; 2021-07-06 03:13)
PROC: 027035Z Dilation of Coronary Artery, One Artery with Two Drug-eluting Intraluminal Devices, Percutaneous Approach (ICD-10-PCS; principal; 2021-07-06 03:13)
PROC: 4A023N7 Measurement of Cardiac Sampling and Pressure, Left Heart, Percutaneous Approach (ICD-10-PCS; principal; 2021-07-06 03:13)
DX: I21.19 ST elevation (STEMI) myocardial infarction involving other coronary artery of inferior wall (principal); I50.33 Acute on chronic diastolic (congestive) heart failure; J98.11 Atelectasis; I11.0 Hypertensive heart disease with heart failure; I25.10 Atherosclerotic heart disease of native coronary artery without angina pectoris; E78.5 Hyperlipidemia, unspecified; I08.0 Rheumatic disorders of both mitral and aortic valves; Z79.82 Long term (current) use of aspirin; Z79.899 Other long term (current) drug therapy; I25.2 Old myocardial infarction; Z87.891 Personal history of nicotine dependence; Z95.5 Presence of coronary angioplasty implant and graft; Z95.1 Presence of aortocoronary bypass graft; Z82.49 Family history of ischemic heart disease and other diseases of the circulatory system
CPT/HCPCS: 71045; 80053; 80061; 80320; 82565; 83735; 83880; 84484; 85025; 85610; 85730; 92978; 93005; 93306; 93458; 96374; 96375; 99285

== ENCOUNTER 2021-11-01 22:37 | Emergency (ER) | payer BC ==
[2021-11-01] MEDS ORDERED: SODIUM CHLORIDE 0.9% 500 ML 500 ML IV STA (22:48)
[2021-11-01] MEDS ORDERED: SODIUM CHLORIDE 0.9% 1,000 ML IV STA ×2 (22:48)
--- NOTE | 2021-11-01 22:48 | ED ---
Alcohol HPI - General Stated Complaint: ETOH, near syncope Time Seen by Provider: 11/01/21 22:47 Source: RN notes reviewed, old records reviewed Limitations: no limitations - History of Present Illness Initial Comments: This is a 60 male to the ED who has a syncopal episode, patient is here and admits to intoxication, patient is weak, lightheaded. Patient denies chest pain, patient has no CORDOVA, abd pain, cp, or orher complaints. No significant medical history. MD Complaint: alcohol intoxication Last Drink: just ROUNDER HAND -: minute(s) Previous Visits for Alcohol Intoxication?: No Recent Trauma: Yes Associated Symptoms: nausea, syncope Treatments Prior to Arrival: none Chronic Alcohol Use: Yes - Related Data Home Medications Medication Instructions Recorded Confirmed Isosorbide Mononitrate ER [Imdur] 30 mg PO DAILY 09/04/19 07/06/21 lisinopriL [Prinivil] 5 mg PO HS 09/04/19 07/06/21 Atorvastatin [Lipitor] 80 mg PO DAILY 07/06/21 07/06/21 hydrOXYzine HCL [Atarax] 25 mg PO HS PRN 07/06/21 07/06/21 Previous Rx's Medication Instructions Recorded Aspirin 81 mg PO DAILY #30 chew 06/16/17 Nitroglycerin Sl Tabs [Nitrostat] 0.4 mg SUBLINGUAL Q5M PRN #25 tab 06/16/17 Mag Hydrox/Al Hydrox/Simeth 30 ml PO Q4HR PRN ml 07/08/21 [Maalox] Metoprolol Tartrate [Lopressor] 25 mg PO BID #60 tab 07/08/21 Ticagrelor [Brilinta] 90 mg PO BID #60 tab 07/08/21 Allergies Allergy/AdvReac Type Severity Reaction Status Date / Time No Known Allergies Allergy Verified 07/06/21 11:48 Review of Systems ROS Statement: Those systems with pertinent positive or pertinent negative responses have been documented in the HPI. ROS Other: All systems not noted in ROS Statement are negative. Past Medical History Past Medical History: Myocardial Infarction ([place]) Additional Past Medical History / Comment(s): stent times three to RCA, STATES RT GROIN STILL BRUISED Last Myocardial Infarction Date:: 06/25/2017 History of Any Multi-Drug Resistant Organisms: None Reported Past Surgical History: No Surgical Hx Reported, Heart Catheterization With Stent Additional Past Surgical History / Comment(s): stent times 3 to RCA, 2 stents 06/29/17 (1 stent LAD, 1 stent OM) Past Anesthesia/Blood Transfusion Reactions: No Reported Reaction Additional Past Anesthesia/Blood Transfusion Reaction / Comment(s): has never had general anesthesia Date of Last Stent Placement:: 06/29/17 Past Psychological History: No Psychological Hx Reported Smoking Status: Never smoker Past Alcohol Use History: Occasional Past Drug Use History: None Reported - Past Family History Father Family Medical History: Coronary Artery Disease (CAD) Additional Family Medical History / Comment(s): Father had his first [place] in his 40's. He had CABG twice. He of a [place] at the age of 67yrs. Mother Family Medical History: Coronary Artery Disease (CAD) Additional Family Medical History / Comment(s): Mother had CABG. She of a [place] at the age of 67yrs. General Exam General appearance: alert, in no apparent distress, appears intoxicated Head exam: Present: atraumatic, normocephalic, normal inspection Eye exam: Present: normal appearance, PERRL, EOMI. Absent: scleral icterus, conjunctival injection, periorbital swelling ENT exam: Present: normal exam, mucous membranes moist Neck exam: Present: normal inspection. Absent: tenderness, meningismus, lymphadenopathy Respiratory exam: Present: normal lung sounds bilaterally. Absent: respiratory distress, wheezes, rales, rhonchi, stridor Cardiovascular Exam: Present: regular rate, normal rhythm, normal heart sounds. Absent: systolic murmur, diastolic murmur, rubs, gallop, clicks GI/Abdominal exam: Present: soft, normal bowel sounds. Absent: distended, tenderness, guarding, rebound, rigid Extremities exam: Present: normal inspection, full ROM, normal capillary refill. Absent: tenderness, pedal edema, joint swelling, calf tenderness Back exam: Present: normal inspection Neurological exam: Present: alert, oriented X3, CN II-XII intact Psychiatric exam: Present: normal affect, normal mood Skin exam: Present: warm, dry, intact, normal color. Absent: rash Course Vital Signs 11/01/21 22:51 Temperature 97.6 F Pulse Rate 80 Respiratory 16 Rate Blood Pressure 125/87 O2 Sat by Pulse 96 Oximetry - Reevaluation(s) Reevaluation #1: 11/02/21 Medical record is reviewed Reevaluation #2: 11/02/21 No recurrent syncope here in the ER patient feels improved Reevaluation #3: 11/02/21 Patient family is at bedside and is okay to take patient home Medical Decision Making - Medical Decision Making 60 male with a syncopal episode after drinking alcohol all day and drink began to the pool. Patient had no injury noted vomiting episode in the pool after passing out. Patient is returned to his been awake and alert here in the ER can be discharged home - Lab Data Result diagrams: 11/01/21 22:44 11/01/21 22:44 Lab Results 11/01/21 11/01/21 11/01/21 Range/Units 22:44 22:44 22:44 WBC 7.2 (3.8-10.6) k/uL RBC 4.81 (4.30-5.90) m/uL Hgb 14.7 (13.0-17.5) gm/dL Hct 44.6 (39.0-53.0) % MCV 92.8 (80.0-100.0) fL MCH 30.7 (25.0-35.0) pg MCHC 33.1 (31.0-37.0) g/dL RDW 12.3 (11.5-15.5) % Plt Count 217 (150-450) k/uL MPV 7.6 Neutrophils % 55 % Lymphocytes % 28 % Monocytes % 9 % Eosinophils % 3 % Basophils % 1 % Neutrophils # 4.0 (1.3-7.7) k/uL Lymphocytes # 2.0 (1.0-4.8) k/uL Monocytes # 0.7 (0-1.0) k/uL Eosinophils # 0.2 (0-0.7) k/uL Basophils # 0.0 (0-0.2) k/uL PT 10.2 (9.0-12.0) sec INR 0.9 (<1.2) APTT 22.5 (22.0-30.0) sec D-Dimer 0.30 (<0.60) mg/L FEU Sodium 142 (137-145) mmol/L Potassium 4.1 (3.5-5.1) mmol/L Chloride 108 H (98-107) mmol/L Carbon Dioxide 24 (22-30) mmol/L Anion Gap 10 mmol/L BUN 11 (9-20) mg/dL Creatinine 0.74 (0.66-1.25) mg/dL Est GFR (CKD-EPI)AfAm >90 (>60 ml/min/1.73 sqM) Est GFR (CKD-EPI)NonAf >90 (>60 ml/min/1.73 sqM) Glucose 83 (74-99) mg/dL Plasma Lactic Acid Osman (0.7-2.0) mmol/L Calcium 9.0 (8.4-10.2) mg/dL Phosphorus 3.8 (2.5-4.5) mg/dL Magnesium 2.1 (1.6-2.3) mg/dL Total Bilirubin 1.0 (0.2-1.3) mg/dL AST 31 (17-59) U/L ALT 35 (4-49) U/L Alkaline Phosphatase 79 (38-126) U/L Troponin I (0.000-0.034) ng/mL NT-Pro-B Natriuret Pep pg/mL Total Protein 7.3 (6.3-8.2) g/dL Albumin 4.4 (3.5-5.0) g/dL Lipase 80 (23-300) U/L Urine Color Urine Appearance (Clear) Urine pH (5.0-8.0) Ur Specific Wayne (1.001-1.035) Urine Protein (Negative) Urine Glucose (UA) (Negative) Urine Ketones (Negative) Urine Blood (Negative) Urine Nitrite (Negative) Urine Bilirubin (Negative) Urine Urobilinogen (<2.0) mg/dL Ur Leukocyte Esterase (Negative) Serum Alcohol 266 H* mg/dL 11/01/21 11/01/21 11/01/21 Range/Units 22:44 22:44 22:53 WBC (3.8-10.6) k/uL RBC (4.30-5.90) m/uL Hgb (13.0-17.5) gm/dL Hct (39.0-53.0) % MCV (80.0-100.0) fL MCH (25.0-35.0) pg MCHC (31.0-37.0) g/dL RDW (11.5-15.5) % Plt Count (150-450) k/uL MPV Neutrophils % % Lymphocytes % % Monocytes % % Eosinophils % % Basophils % % Neutrophils # (1.3-7.7) k/uL Lymphocytes # (1.0-4.8) k/uL Monocytes # (0-1.0) k/uL Eosinophils # (0-0.7) k/uL Basophils # (0-0.2) k/uL PT (9.0-12.0) sec INR (<1.2) APTT (22.0-30.0) sec D-Dimer (<0.60) mg/L FEU Sodium (137-145) mmol/L Potassium (3.5-5.1) mmol/L Chloride (98-107) mmol/L Carbon Dioxide (22-30) mmol/L Anion Gap mmol/L BUN (9-20) mg/dL Creatinine (0.66-1.25) mg/dL Est GFR (CKD-EPI)AfAm (>60 ml/min/1.73 sqM) Est GFR (CKD-EPI)NonAf (>60 ml/min/1.73 sqM) Glucose (74-99) mg/dL Plasma Lactic Acid Osman (0.7-2.0) mmol/L Calcium (8.4-10.2) mg/dL Phosphorus (2.5-4.5) mg/dL Magnesium (1.6-2.3) mg/dL Total Bilirubin (0.2-1.3) mg/dL AST (17-59) U/L ALT (4-49) U/L Alkaline Phosphatase (38-126) U/L Troponin I <0.012 (0.000-0.034) ng/mL NT-Pro-B Natriuret Pep 87 pg/mL Total Protein (6.3-8.2) g/dL Albumin (3.5-5.0) g/dL Lipase (23-300) U/L Urine Color Colorless Urine Appearance Clear (Clear) Urine pH 5.0 (5.0-8.0) Ur Specific Wayne 1.003 (1.001-1.035) Urine Protein Negative (Negative) Urine Glucose (UA) Negative (Negative) Urine Ketones Negative (Negative) Urine Blood Negative (Negative) Urine Nitrite Negative (Negative) Urine Bilirubin Negative (Negative) Urine Urobilinogen <2.0 (<2.0) mg/dL Ur Leukocyte Esterase Negative (Negative) Serum Alcohol mg/dL 11/01/21 Range/Units 22:59 WBC (3.8-10.6) k/uL RBC (4.30-5.90) m/uL Hgb (13.0-17.5) gm/dL Hct (39.0-53.0) % MCV (80.0-100.0) fL MCH (25.0-35.0) pg MCHC (31.0-37.0) g/dL RDW (11.5-15.5) % Plt Count (150-450) k/uL MPV Neutrophils % % Lymphocytes % % Monocytes % % Eosinophils % % Basophils % % Neutrophils # (1.3-7.7) k/uL Lymphocytes # (1.0-4.8) k/uL Monocytes # (0-1.0) k/uL Eosinophils # (0-0.7) k/uL Basophils # (0-0.2) k/uL PT (9.0-12.0) sec INR (<1.2) APTT (22.0-30.0) sec D-Dimer (<0.60) mg/L FEU Sodium (137-145) mmol/L Potassium (3.5-5.1) mmol/L Chloride (98-107) mmol/L Carbon Dioxide (22-30) mmol/L Anion Gap mmol/L BUN (9-20) mg/dL Creatinine (0.66-1.25) mg/dL Est GFR (CKD-EPI)AfAm (>60 ml/min/1.73 sqM) Est GFR (CKD-EPI)NonAf (>60 ml/min/1.73 sqM) Glucose (74-99) mg/dL Plasma Lactic Acid Osman 1.2 (0.7-2.0) mmol/L Calcium (8.4-10.2) mg/dL Phosphorus (2.5-4.5) mg/dL Magnesium (1.6-2.3) mg/dL Total Bilirubin (0.2-1.3) mg/dL AST (17-59) U/L ALT (4-49) U/L Alkaline Phosphatase (38-126) U/L Troponin I (0.000-0.034) ng/mL NT-Pro-B Natriuret Pep pg/mL Total Protein (6.3-8.2) g/dL Albumin (3.5-5.0) g/dL Lipase (23-300) U/L Urine Color Urine Appearance (Clear) Urine pH (5.0-8.0) Ur Specific Wayne (1.001-1.035) Urine Protein (Negative) Urine Glucose (UA) (Negative) Urine Ketones (Negative) Urine Blood (Negative) Urine Nitrite (Negative) Urine Bilirubin (Negative) Urine Urobilinogen (<2.0) mg/dL Ur Leukocyte Esterase (Negative) Serum Alcohol mg/dL - EKG Data -: EKG Interpreted by Me (EKG sinus rhythm 78 NC 190 QRS 90 QTC 386) Disposition Clinical Impression: Vasovagal syncope, Dehydration, Syncope due to orthostatic hypotension, Alcohol intoxication Disposition: HOME SELF-CARE Condition: Good Instructions (If sedation given, give patient instructions): Syncope (ED) Is patient prescribed a controlled substance at d/c from ED?: No Referrals: None,Stated [Primary Care Provider] - 1-2 days Time of Disposition: 03:00
[2021-11-01 22:54] VITALS: BP 125/87; PULSE 80; RESP 16; TEMP 97.6
[2021-11-01 23:26] LABS: Basophils % (A) 1 %; Eosinophils # (A) 0.2 k/uL (0-0.7); Eosinophils % (A) 3 %; HCT 44.6 % (39.0-53.0); HGB 14.7 gm/dL (13.0-17.5); Lymphocytes % (A) 28 %; MCH 30.7 pg (25.0-35.0); MCHC 33.1 g/dL (31.0-37.0); MCV 92.8 fL (80.0-100.0); Mean Platelet Volume 7.6; Monocytes # (A) 0.7 k/uL (0-1.0); Monocytes % (A) 9 %; Neutrophils % (A) 55 %; Platelet Count 217 k/uL (150-450); RBC 4.81 m/uL (4.30-5.90); RDW 12.3 % (11.5-15.5); WBC 7.2 k/uL (3.8-10.6)
[2021-11-01 23:29] LABS: ALT 35 U/L (4-49); AST 31 U/L (17-59); African American GFR (CKD) >90 (>60 ml/min/1.73 sqM); Albumin 4.4 g/dL (3.5-5.0); Alkaline Phosphatase 79 U/L (38-126); Anion Gap 10 mmol/L; Blood Urea Nitrogen 11 mg/dL (9-20); Carbon Dioxide 24 mmol/L (22-30); Chloride 108 mmol/L (98-107); Glucose 83 mg/dL (74-99); Lipase 80 U/L (23-300); Magnesium 2.1 mg/dL (1.6-2.3); Non-African American GFR(CKD) >90 (>60 ml/min/1.73 sqM); Phosphorus 3.8 mg/dL (2.5-4.5); Potassium 4.1 mmol/L (3.5-5.1); Sodium 142 mmol/L (137-145); Total Protein 7.3 g/dL (6.3-8.2)
[2021-11-01 23:41] LABS: INR 0.9 (<1.2); Partial Thromboplastin Time 22.5 sec (22.0-30.0); Prothrombin Time 10.2 sec (9.0-12.0)
[2021-11-01 23:49] LABS: Alcohol 266 mg/dL
[2021-11-02 00:08] LABS: Appearance,Urine Clear (Clear); Bilirubin,Urine Negative (Negative); Blood,Urine Negative (Negative); Color,Urine Colorless; Glucose,Urine (UA) Negative (Negative); Ketones,Urine Negative (Negative); Leukocyte Esterase,Urine Negative (Negative); Nitrite,Urine Negative (Negative); Protein,Urine Negative (Negative); Specific Gravity,Urine 1.003 (1.001-1.035); Urobilinogen,Urine <2.0 mg/dL (<2.0)
== END 2021-11-02 03:49 | disposition home or self-care (01) ==
LOC: EC 22:37
DX: F10.129 Alcohol abuse with intoxication, unspecified (principal); R55 Syncope and collapse; Z82.49 Family history of ischemic heart disease and other diseases of the circulatory system
CPT/HCPCS: 36415; 80053; 80320; 81003; 83605; 83690; 83735; 83880; 84100; 84484; 85025; 85379; 85610; 85730; 93005; 96360; 99285

== ENCOUNTER → 2023-06-25 | Outpatient (CLI) | payer BC ==
[2023-06-25 15:59] LABS: ALT 51 U/L (10-49); AST 25 U/L (14-35); LDL Cholesterol,Calculated 86.1 mg/dL (0.0-131.0)
== END | disposition home or self-care (01) ==
LOC: LABWHC1 08:59
PROVIDERS: ATTEND Internal Medicine
DX: E78.2 Mixed hyperlipidemia (principal)
CPT/HCPCS: 36415; 80061; 84450; 84460

== ENCOUNTER → 2023-09-10 | Outpatient (CLI) | payer BC ==
[2023-09-10 14:31] LABS: Basophils # (A) 0.02 X 10*3/uL (0.00-0.10); Basophils % (A) 0.4 %; Eosinophils # (A) 0.18 X 10*3/uL (0.04-0.35); Eosinophils % (A) 3.9 %; HCT 41.7 % (39.6-50.0); HGB 13.8 g/dL (13.0-17.0); Lymphocytes # (A) 1.03 X 10*3/uL (0.90-5.00); Lymphocytes % (A) 22.1 %; MCH 31.1 pg (27.0-32.0); MCHC 33.1 g/dL (32.0-37.0); MCV 93.9 FL (80.0-97.0); Mean Platelet Volume 10.4 FL (9.5-12.2); NRBC Per 100 WBC 0 X 10*3/uL (0.00-0.01); Neutrophils # (A) 2.72 X 10*3/uL (1.80-7.70); Neutrophils % (A) 58.2 %; Platelet Count 216 X 10*3/uL (140-440); RBC 4.44 X 10*6/uL (4.40-5.60); RDW 11.9 % (11.5-14.5); WBC 4.67 X 10*3/uL (4.50-10.00)
[2023-09-10 15:23] LABS: BUN/Creat Ratio 15.56 Ratio (12.00-20.00); Chol/HDL Ratio 4.01 Ratio; Glucose 112 mg/dL (70-110); LDL Cholesterol,Calculated 77.9 mg/dL (0.0-131.0); VLDL Calculation 18.92 mg/dL (5.00-40.00)
[2023-09-10 15:24] LABS: ALT 39 U/L (10-49); AST 31 U/L (14-35); Albumin 4.3 g/dL (3.8-4.9); Albumin/Globulin Ratio 1.87 Ratio (1.60-3.17); Alkaline Phosphatase 97 U/L (41-126); Calcium 8.9 mg/dL (8.7-10.3); Carbon Dioxide 22.8 mmol/L (21.6-31.8); Chloride 105 mmol/L (96-109); Globulin 2.3 g/dL (1.6-3.3); Prostate Specific Antigen 0.73 ng/mL (0.000-4.500); Sodium 137 mmol/L (135-145); Total Bilirubin 0.8 mg/dL (0.3-1.2); Total Protein 6.6 g/dL (6.2-8.2)
== END | disposition home or self-care (01) ==
LOC: LABWHC1 09:00
PROVIDERS: ATTEND Family Medicine
DX: Z00.00 Encounter for general adult medical examination without abnormal findings (principal)
CPT/HCPCS: 36415; 80053; 80061; 82306; 84153; 85025